=== PATIENT | female | born 1950 | race Caucasian/White ===

== ENCOUNTER 2016-10-13 15:18 | Inpatient (IN) | payer BC, MEDICARE ==
[2016-10-13] MEDS ORDERED: MELOXICAM (MOBIC) 7.5 MG TAB PO PRN (15:30)
[2016-10-13] MEDS ORDERED: ACETAMINOPHEN TAB 650MG DOSE (2X325MG) PO PRN (15:30)
[2016-10-13 16:50] VITALS: BP 166/97
[2016-10-13] MEDS ORDERED: ZETI10TA2 PO (18:14)
[2016-10-13] MEDS ORDERED: LYRI300C PO (18:14)
[2016-10-13] MEDS ORDERED: SYNT150T PO (18:14)
[2016-10-13] MEDS ORDERED: METH2.5TA PO (18:14)
[2016-10-13] MEDS ORDERED: SULF500T2 PO (18:14)
[2016-10-13] MEDS ORDERED: CYAN1000VL IM (18:14)
[2016-10-13] MEDS ORDERED: AMIT75TA PO (18:14)
[2016-10-13] MEDS ORDERED: DULO1CAP3 PO (18:14)
[2016-10-13] MEDS ORDERED: GEMF600T PO (18:14)
[2016-10-13] MEDS ORDERED: MELO15TA4 PO (18:14)
[2016-10-13] MEDS ORDERED: FOLI1TAB2 PO (18:14)
[2016-10-13] MEDS ORDERED: PROP120C PO (18:14)
[2016-10-13] MEDS ORDERED: HYDR200T3 PO (18:14)
[2016-10-13] MEDS ORDERED: CLON0.5T PO (18:14)
[2016-10-13] MEDS ORDERED: CARB400T4 PO (18:14)
--- NOTE | 2016-10-13 18:29 | REP ---
Clinical: Fever and hypoxemia. Technique: A AP and lateral views. Comparison: 05/16/2012 Findings: Mediastinum and cardiac silhouette are stable. Lung graham demonstrate chronic interstitial changes. No focal consolidation, effusion, or pneumothorax identified. Impression: Chronic stable changes. Cannot exclude mild vascular congestion. No focal consolidation or effusion. Signed by Isaiah Baltazar MD 10/13/2016 06:20 P
[2016-10-13] MEDS: NORCO, ANEXSIA 5/325MG TABLET (HYDROcodone/ACETAMINOPHEN) PO PRN (18:48)
[2016-10-13 19:01] LABS: BASO % 0.5 % (0.0-1.0); EOS # 0.1 K/mm3 (0.0-0.50); LARGE UNSTAINED CELL # 0.5 K/mm3 (0.0-0.4); LARGE UNSTAINED CELL % 4.8 % (0.0-4.0); LYMPH # 0.7 K/mm3 (1.5-4.5); LYMPH % 3.1 % (24.0-44.0); MEAN CORPUSCULAR HGB CONC 32.9 g/dl (32.0-36.5); MEAN CORPUSCULAR VOLUME 106.4 fl (80.0-96.0); MONO # 0.9 K/mm3 (0.0-0.8); MONO % 9.8 % (0.0-5.0); NEUTROPHILS # 7.6 K/mm3 (1.8-7.7); NEUTROPHILS % 80.7 % (36.0-66.0); PLATELET COUNT, AUTOMATED 302 k/mm3 (150-450); RED CELL DISTRIBUTION WIDTH 13.9 % (11.5-14.5); WHITE BLOOD COUNT 9.4 K/mm3 (4.0-10.0)
[2016-10-13 20:05] LABS: ALBUMIN/GLOBULIN RATIO 1.14 (1.00-1.93); ALKALINE PHOSPHATASE 96 U/L (45-117); ALT/SGPT 21 U/L (12-78); ANION GAP 6 MEQ/L (8-16); AST/SGOT 35 U/L (15-37); BILIRUBIN,TOTAL 0.3 MG/DL (0.2-1.0); BLOOD UREA NITROGEN 13 MG/DL (7-18); CALCIUM LEVEL 8.7 MG/DL (8.8-10.2); CARBON DIOXIDE LEVEL 34 MEQ/L (21-32); CHLORIDE LEVEL 92 MEQ/L (98-107); CREATININE FOR GFR 0.61 MG/DL (0.55-1.02); GLOMERULAR FILTRATION RATE > 60.0 (>45); GLUCOSE, FASTING 92 MG/DL (80-110); POTASSIUM SERUM 4.5 MEQ/L (3.5-5.1); SODIUM LEVEL 132 MEQ/L (136-145); TOTAL PROTEIN 7.5 GM/DL (6.4-8.2)
[2016-10-13] MEDS: PREGABALIN 100 MG CAP (LYRICA) PO SCH (20:40)
[2016-10-13] MEDS: AMITRIPTYLINE 25 MG TAB PO SCH (20:41)
[2016-10-13] MEDS: HYDROXYCHLOROQUINE 200 MG TAB PO SCH (20:42)
[2016-10-13] MEDS: GEMFIBROZIL 600 MG TAB PO SCH (20:42)
[2016-10-13] MEDS: DULoxetine 30 MG CAP (CYMBALTA) PO SCH (20:42)
[2016-10-13] MEDS: PROPRANOLOL 60 MG LA CAP PO SCH (21:00)
[2016-10-13] MEDS: CEFTAROLINE FOSAMIL 600 MG in D5W MINI-BAG PLUS 50 ML IV SCH (21:18)
[2016-10-13 22:00] VITALS: BP 154/77
[2016-10-13] MEDS: sulfaSALAzine 500 MG TABEC PO SCH (22:33)
[2016-10-13] MEDS: carBAMazepine XR 200 MG TAB PO SCH (22:33)
[2016-10-13] MEDS: DOXYCYCLINE HYCLATE 100 MG in D5W MINI-BAG PLUS 100 ML IV SCH (23:30)
[2016-10-14] MEDS: LEVOTHYROXINE 0.15 MG TAB (150 MCG) PO SCH (05:39)
[2016-10-14 06:00] VITALS: BP 119/59
[2016-10-14 06:55] LABS: BASO % 0.5 % (0.0-1.0); EOS # 0.1 K/mm3 (0.0-0.50); EOS % 1.3 % (0.0-3.0); LARGE UNSTAINED CELL # 0.4 K/mm3 (0.0-0.4); LARGE UNSTAINED CELL % 5.4 % (0.0-4.0); LYMPH # 0.8 K/mm3 (1.5-4.5); MEAN CORPUSCULAR HEMOGLOBIN 34.5 pg (27.0-33.0); MEAN CORPUSCULAR HGB CONC 32.3 g/dl (32.0-36.5); MEAN CORPUSCULAR VOLUME 107.1 fl (80.0-96.0); MONO # 0.8 K/mm3 (0.0-0.8); MONO % 11.1 % (0.0-5.0); NEUTROPHILS # 5.8 K/mm3 (1.8-7.7); NEUTROPHILS % 76.7 % (36.0-66.0); PLATELET COUNT, AUTOMATED 290 k/mm3 (150-450); WHITE BLOOD COUNT 7.6 K/mm3 (4.0-10.0)
[2016-10-14 07:08] LABS: ALBUMIN 3.7 GM/DL (3.2-5.2); ALBUMIN/GLOBULIN RATIO 1.06 (1.00-1.93); ALKALINE PHOSPHATASE 83 U/L (45-117); ALT/SGPT 27 U/L (12-78); ANION GAP 8 MEQ/L (8-16); AST/SGOT 57 U/L (15-37); BILIRUBIN,TOTAL 0.4 MG/DL (0.2-1.0); BLOOD UREA NITROGEN 15 MG/DL (7-18); CALCIUM LEVEL 8.8 MG/DL (8.8-10.2); CARBON DIOXIDE LEVEL 33 MEQ/L (21-32); CHLORIDE LEVEL 91 MEQ/L (98-107); CREATININE FOR GFR 0.73 MG/DL (0.55-1.02); GLOMERULAR FILTRATION RATE > 60.0 (>45); GLUCOSE, FASTING 102 MG/DL (80-110); POTASSIUM SERUM 4.2 MEQ/L (3.5-5.1); SODIUM LEVEL 132 MEQ/L (136-145); TOTAL PROTEIN 7.2 GM/DL (6.4-8.2)
[2016-10-14] MEDS: DOXYCYCLINE HYCLATE 100 MG in D5W MINI-BAG PLUS 100 ML IV SCH (09:00)
[2016-10-14] MEDS: CEFTAROLINE FOSAMIL 600 MG in D5W MINI-BAG PLUS 50 ML IV SCH (09:41)
[2016-10-14] MEDS: PREGABALIN 100 MG CAP (LYRICA) PO SCH ×2 (09:41→20:10)
[2016-10-14] MEDS: DULoxetine 30 MG CAP (CYMBALTA) PO SCH ×2 (09:42→20:14)
[2016-10-14] MEDS: GEMFIBROZIL 600 MG TAB PO SCH ×3 (09:42→21:00)
[2016-10-14] MEDS: HYDROXYCHLOROQUINE 200 MG TAB PO SCH ×2 (09:42→20:15)
[2016-10-14] MEDS: MULTIVITAMINS/MINERALS THERAP 1 TAB PO SCH (09:42)
[2016-10-14] MEDS: carBAMazepine XR 200 MG TAB PO SCH ×3 (09:42→22:00)
[2016-10-14] MEDS: FOLIC ACID 1 MG TAB PO SCH (09:42)
[2016-10-14] MEDS: sulfaSALAzine 500 MG TABEC PO SCH ×2 (09:42→20:14)
[2016-10-14] MEDS: VITAMIN D 1,000 INTERNATIONAL UNITS TABLET PO SCH (09:42)
[2016-10-14] MEDS: ENOXAPARIN 40 MG/0.4 ML SYRINGE (J1650) SC SCH (09:43)
[2016-10-14] MEDS: NORCO, ANEXSIA 5/325MG TABLET (HYDROcodone/ACETAMINOPHEN) PO PRN ×2 (09:43→20:15)
--- NOTE | 2016-10-14 10:37 | IPNPDOC ---
Subjective General Date Seen The patient was seen on 10/14/16. Subjective Chief Complaint/HPI The patient is a 66-year-old female admitted with a reason for visit of Cap / Hypoxemia. Events since last encounter Martha was directly admitted from the office after presenting c 3 days of myalgias, cough, congestion and intermittent fever. Was found to be hypoxic at 87% that improved c 2L NC. She continues to require O2 to maintain sats here. Bcx pending. RVP + for flu. Afebrile since admission. Assessment /Plan Problems Problems: (1) Influenza A Status: Acute (2) Hypoxemia Status: Acute (3) Hyperlipidemia Status: Chronic Problem Text: Cont zetia and lopid (4) Type 2 diabetes mellitus Status: Chronic Response to Treatment: Stable Problem Text: Diet-controlled. CHO-consistent diet ordered. (5) B12 deficiency anemia Status: Chronic Response to Treatment: Stable (6) Hypothyroid Status: Chronic Response to Treatment: Stable Problem Text: continue synthroid (7) Migraine headache Status: Chronic Response to Treatment: Stable Problem Text: continue prophylaxis VS, I&O, [facility] Vital Signs Date Time Temp Pulse Resp B/P Pulse Ox O2 Delivery O2 Flow Rate FiO2 10/14/16 09:43 18 10/14/16 06:00 99.9 83 119/59 95 Nasal Cannula 2.0 10/13/16 16:50 98 I&O- Last 24 Hours up to 6 AM 10/14/16 05:59 Intake Total 360 ml Output Total 175 ml Balance 185 ml Laboratory Data 24H LABS Laboratory Tests 2 10/13/16 18:41: Blood Urea Nitrogen 13, Creatinine 0.61, Sodium Level 132L, Potassium Level 4.5 , Chloride Level 92L, Carbon Dioxide Level 34H, Calcium Level 8.7L, Aspartate Amino Transf (AST/SGOT) 35, Alanine Aminotransferase (ALT/SGPT) 21, Alkaline Phosphatase 96, Total Bilirubin 0.3, Total Protein 7.5, Albumin 4.0, Albumin/ Globulin Ratio 1.14, Anion Gap 6L, White Blood Count 9.4, Red Blood Count 3.58L , Hemoglobin 12.5, Hematocrit 38.1, Mean Corpuscular Volume 106.4H, Mean Corpuscular Hemoglobin 35.0H, Mean Corpuscular Hemoglobin Concent 32.9, Red Cell Distribution Width 13.9, Platelet Count 302, Neutrophils (%) (Auto) 80.7H, Lymphocytes (%) (Auto) 3.1L, Monocytes (%) (Auto) 9.8H, Eosinophils (%) (Auto) 1.0, Basophils (%) (Auto) 0.5, Neutrophils # (Auto) 7.6, Lymphocytes # (Auto) 0.7L, Monocytes # (Auto) 0.9H, Eosinophils # (Auto) 0.1, Basophils # (Auto) 0.0 , Glomerular Filtration Rate > 60.0, Large Unclassified Cells # 0.5H, Large Unclassified Cells % 4.8H 10/14/16 06:11: Urine Amorphous Sediment , Urine Appearance HAZY, Urine Color PAT, Urine pH 5.0, Urine Specific [place] 1.026, Urine Protein 1+H, Urine Glucose (UA) NEGATIVE, Urine Ketones NEGATIVE, Urine Urobilinogen 0.2, Urine Bilirubin NEGATIVE, Urine Leukocyte Esterase NEGATIVE, Urine Bacteria (Auto) NEGATIVE, Urine Blood NEGATIVE, Urine Calcium Carbonate Cryst(Auto) , Urine Calcium Oxalate Cryst (Auto) , Urine Calcium Phosphate Rama (Auto) , Urine Cellular Casts , Urine Cystine Crystals , Urine Granular Casts (Auto) , Urine Hyaline Casts (Auto) 5, Urine Leucine Crystals , Urine Mucus (Auto) SMALL, Urine Nitrite NEGATIVE, Urine Oval Fat Bodies (Auto) , Urine RBC (Auto) 4H, Urine Renal Epithelial Cells , Urine Sperm (Auto) , Urine Squamous Epithelial Cells 1 , Urine Transitional Epithelial Cells 1, Urine Trichomonas (Auto) , Urine Triple Phosphate Cryst (Auto) , Urine Tyrosine Crystals , Urine Uric Acid Crystals (Auto) , Urine WBC (Auto) 10H, Urine Waxy Casts (Auto) , Urine Yeast- Like Cells (Auto) 10/14/16 06:17: Blood Urea Nitrogen 15, Creatinine 0.73, Sodium Level 132L, Potassium Level 4.2 , Chloride Level 91L, Carbon Dioxide Level 33H, Calcium Level 8.8, Aspartate Amino Transf (AST/SGOT) 57H, Alanine Aminotransferase (ALT/SGPT) 27, Alkaline Phosphatase 83, Total Bilirubin 0.4, Total Protein 7.2, Albumin 3.7, Albumin/ Globulin Ratio 1.06, Anion Gap 8, White Blood Count 7.6, Red Blood Count 3.40L, Hemoglobin 11.7L, Hematocrit 36.4, Mean Corpuscular Volume 107.1H, Mean Corpuscular Hemoglobin 34.5H, Mean Corpuscular Hemoglobin Concent 32.3, Red Cell Distribution Width 14.0, Platelet Count 290, Neutrophils (%) (Auto) 76.7H, Lymphocytes (%) (Auto) 5.0L, Monocytes (%) (Auto) 11.1H, Eosinophils (%) (Auto) 1.3, Basophils (%) (Auto) 0.5, Neutrophils # (Auto) 5.8, Lymphocytes # (Auto) 0.8L, Monocytes # (Auto) 0.8, Eosinophils # (Auto) 0.1, Basophils # (Auto) 0.0, Glomerular Filtration Rate > 60.0, Large Unclassified Cells # 0.4, Large Unclassified Cells % 5.4H CBC/BMP Laboratory Tests 10/13/16 18:41 Calcium Level 8.7 L, Aspartate Amino Transf (AST/SGOT) 35, Alanine Aminotransferase (ALT/SGPT) 21, Alkaline Phosphatase 96, Total Bilirubin 0.3, Total Protein 7.5, Albumin 4.0, Red Blood Count 3.58 L, Mean Corpuscular Volume 106.4 H, Mean Corpuscular Hemoglobin 35.0 H, Mean Corpuscular Hemoglobin Concent 32.9, Red Cell Distribution Width 13.9, Neutrophils (%) (Auto) 80.7 H, Lymphocytes (%) (Auto) 3.1 L, Monocytes (%) (Auto) 9.8 H, Eosinophils (%) (Auto ) 1.0, Basophils (%) (Auto) 0.5, Neutrophils # (Auto) 7.6, Lymphocytes # (Auto) 0.7 L, Monocytes # (Auto) 0.9 H, Eosinophils # (Auto) 0.1, Basophils # (Auto) 0.0 10/14/16 06:17 Calcium Level 8.8, Aspartate Amino Transf (AST/SGOT) 57 H, Alanine Aminotransferase (ALT/SGPT) 27, Alkaline Phosphatase 83, Total Bilirubin 0.4, Total Protein 7.2, Albumin 3.7, Red Blood Count 3.40 L, Mean Corpuscular Volume 107.1 H, Mean Corpuscular Hemoglobin 34.5 H, Mean Corpuscular Hemoglobin Concent 32.3, Red Cell Distribution Width 14.0, Neutrophils (%) (Auto) 76.7 H, Lymphocytes (%) (Auto) 5.0 L, Monocytes (%) (Auto) 11.1 H, Eosinophils (%) (Auto ) 1.3, Basophils (%) (Auto) 0.5, Neutrophils # (Auto) 5.8, Lymphocytes # (Auto) 0.8 L, Monocytes # (Auto) 0.8, Eosinophils # (Auto) 0.1, Basophils # (Auto) 0.0 Microbiology Microbiology 10/13/16 Blood Culture, Received Pending 10/13/16 Blood Culture, Received Pending 10/13/16 Blood Culture, Received Pending 10/14/16 Respiratory Virus Panel (PCR) ([facility]) - Final, Complete Influenza A H3 10/14/16 Urine Culture, Received Pending YOSELIN LIM DO Oct 14, 2016 10:37
[2016-10-14] MEDS ORDERED: ALBUTEROL SULFATE 2.5 MG/0.5 ML INH NEB SOLN NEB PRN (11:30)
--- NOTE | 2016-10-14 11:34 | IPNPDOC ---
Subjective General Date Seen The patient was seen on 10/14/16. Subjective Chief Complaint/HPI The patient is a 66-year-old female admitted with a reason for visit of Cap / Hypoxrmia. Events since last encounter + for Influenza A. c/o SOB and cough. No prior hx of asthma. 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 Hx of RA. Methotrexate on HOLD. Constitutional: Reports: Chills, Fever ENT: Denies: Head Aches Skin: Denies: Rash Pulmonary: Reports: Cough, Dyspnea Cardiovascular: Denies: Chest Pain, Palpitations Gastrointestinal: Denies: Nausea, Vomiting Genitourinary: Denies: Dysuria, Frequency Musculoskeletal: Reports: Joint Pain (chronic: hx of RA) Psych: Reports: Mood Normal Objective Physical Examination General Exam: Positive: Alert, No Acute Distress Eye Exam: Positive: Conjunctiva & lids normal, EOMI, PERRLA, Negative: Sclera icteric ENT Exam: Positive: Atraumatic, Mucous membr. moist/pink, Pharynx Normal Neck Exam: Positive: Supple, Negative: JVD, thyromegaly Chest Exam: Positive: Diminished Heart Exam: Positive: Normal S1, Normal S2, Rate Normal, Regular Rhythm Abdomen Exam: Positive: Normal bowel sounds, Soft, Negative: Hepatospenomegaly, Tenderness Extremity Exam: Positive: Normal pulses, Negative: Clubbing, Cyanosis, Edema Skin Exam: Positive: Nl turgor and temperature, Negative: Breakdown, Rash Psych Exam: Positive: Mental status NL, Mood NL, Oriented x 3 Assessment /Plan Problems Problems: (1) Influenza A Status: Acute Problem Text: Tamiflu started. Solumedrol, Nebs added on. Initially on ceftaroline and doxycycline for presumed CAP. CXR clear yesterday, so will switch to ceftriaxone and azithromycin for pneumonia prevention. (2) Hypoxemia Status: Acute Problem Text: 2LNC 98%. will wean as indicated. (3) Hyperlipidemia Status: Chronic Problem Text: Cont zetia and lopid (4) Type 2 diabetes mellitus Status: Chronic Response to Treatment: Stable Problem Text: Diet-controlled. CHO-consistent diet ordered. (5) B12 deficiency anemia Status: Chronic Response to Treatment: Stable (6) Hypothyroid Status: Chronic Response to Treatment: Stable Problem Text: continue synthroid (7) Migraine headache Status: Chronic Response to Treatment: Stable Problem Text: continue prophylaxis Plan/VTE VTE Prophylaxis Ordered?: Yes (Lovenox) Plan Family Medicine Attending Note: I saw and examined Ms. Reyna and I agree with Brooklyn Alcaraz's note. Patient was initially directly admitted from the office for presumed CAP but CXR does not show any infiltrate. She is positive for influenza A, which is the most likely cause of her symptoms. She is not dyspneic upon my exam; poor air movement in lungs. As O2 sats are good on 2LPM of O2, I discussed attempting to wean this with her nurse. Continue Tamiflu, antibiotics, prednisone, and nebs as above. She does not have any underlying asthma/COPD but does have a history of TB as a child. PE is less likely as cause of hypoxia as she is not tachycardic and has no leg pain or tenderness to palpation. Right calf is slightly larger than left, but patient states that this is chronic due to an old injury. (KES) VS, I&O, 24H, Fishbone Vital Signs/I&O Vital Signs Date Time Temp Pulse Resp B/P Pulse Ox O2 Delivery O2 Flow Rate FiO2 10/14/16 10:45 18 10/14/16 06:00 99.9 83 119/59 95 Nasal Cannula 2.0 10/13/16 16:50 98 I&O- Last 24 Hours up to 6 AM 10/14/16 06:00 Intake Total 360 ml Output Total 285 ml Balance 75 ml Laboratory Data 24H LABS Laboratory Tests 2 10/13/16 18:41: Blood Urea Nitrogen 13, Creatinine 0.61, Sodium Level 132L, Potassium Level 4.5 , Chloride Level 92L, Carbon Dioxide Level 34H, Calcium Level 8.7L, Aspartate Amino Transf (AST/SGOT) 35, Alanine Aminotransferase (ALT/SGPT) 21, Alkaline Phosphatase 96, Total Bilirubin 0.3, Total Protein 7.5, Albumin 4.0, Albumin/ Globulin Ratio 1.14, Anion Gap 6L, White Blood Count 9.4, Red Blood Count 3.58L , Hemoglobin 12.5, Hematocrit 38.1, Mean Corpuscular Volume 106.4H, Mean Corpuscular Hemoglobin 35.0H, Mean Corpuscular Hemoglobin Concent 32.9, Red Cell Distribution Width 13.9, Platelet Count 302, Neutrophils (%) (Auto) 80.7H, Lymphocytes (%) (Auto) 3.1L, Monocytes (%) (Auto) 9.8H, Eosinophils (%) (Auto) 1.0, Basophils (%) (Auto) 0.5, Neutrophils # (Auto) 7.6, Lymphocytes # (Auto) 0.7L, Monocytes # (Auto) 0.9H, Eosinophils # (Auto) 0.1, Basophils # (Auto) 0.0 , Glomerular Filtration Rate > 60.0, Large Unclassified Cells # 0.5H, Large Unclassified Cells % 4.8H 10/14/16 06:11: Urine Amorphous Sediment , Urine Appearance HAZY, Urine Color PAT, Urine pH 5.0, Urine Specific [place] 1.026, Urine Protein 1+H, Urine Glucose (UA) NEGATIVE, Urine Ketones NEGATIVE, Urine Urobilinogen 0.2, Urine Bilirubin NEGATIVE, Urine Leukocyte Esterase NEGATIVE, Urine Bacteria (Auto) NEGATIVE, Urine Blood NEGATIVE, Urine Calcium Carbonate Cryst(Auto) , Urine Calcium Oxalate Cryst (Auto) , Urine Calcium Phosphate Rama (Auto) , Urine Cellular Casts , Urine Cystine Crystals , Urine Granular Casts (Auto) , Urine Hyaline Casts (Auto) 5, Urine Leucine Crystals , Urine Mucus (Auto) SMALL, Urine Nitrite NEGATIVE, Urine Oval Fat Bodies (Auto) , Urine RBC (Auto) 4H, Urine Renal Epithelial Cells , Urine Sperm (Auto) , Urine Squamous Epithelial Cells 1 , Urine Transitional Epithelial Cells 1, Urine Trichomonas (Auto) , Urine Triple Phosphate Cryst (Auto) , Urine Tyrosine Crystals , Urine Uric Acid Crystals (Auto) , Urine WBC (Auto) 10H, Urine Waxy Casts (Auto) , Urine Yeast- Like Cells (Auto) 10/14/16 06:17: Blood Urea Nitrogen 15, Creatinine 0.73, Sodium Level 132L, Potassium Level 4.2 , Chloride Level 91L, Carbon Dioxide Level 33H, Calcium Level 8.8, Aspartate Amino Transf (AST/SGOT) 57H, Alanine Aminotransferase (ALT/SGPT) 27, Alkaline Phosphatase 83, Total Bilirubin 0.4, Total Protein 7.2, Albumin 3.7, Albumin/ Globulin Ratio 1.06, Anion Gap 8, White Blood Count 7.6, Red Blood Count 3.40L, Hemoglobin 11.7L, Hematocrit 36.4, Mean Corpuscular Volume 107.1H, Mean Corpuscular Hemoglobin 34.5H, Mean Corpuscular Hemoglobin Concent 32.3, Red Cell Distribution Width 14.0, Platelet Count 290, Neutrophils (%) (Auto) 76.7H, Lymphocytes (%) (Auto) 5.0L, Monocytes (%) (Auto) 11.1H, Eosinophils (%) (Auto) 1.3, Basophils (%) (Auto) 0.5, Neutrophils # (Auto) 5.8, Lymphocytes # (Auto) 0.8L, Monocytes # (Auto) 0.8, Eosinophils # (Auto) 0.1, Basophils # (Auto) 0.0, Glomerular Filtration Rate > 60.0, Large Unclassified Cells # 0.4, Large Unclassified Cells % 5.4H CBC/BMP Laboratory Tests 10/13/16 18:41 Calcium Level 8.7 L, Aspartate Amino Transf (AST/SGOT) 35, Alanine Aminotransferase (ALT/SGPT) 21, Alkaline Phosphatase 96, Total Bilirubin 0.3, Total Protein 7.5, Albumin 4.0, Red Blood Count 3.58 L, Mean Corpuscular Volume 106.4 H, Mean Corpuscular Hemoglobin 35.0 H, Mean Corpuscular Hemoglobin Concent 32.9, Red Cell Distribution Width 13.9, Neutrophils (%) (Auto) 80.7 H, Lymphocytes (%) (Auto) 3.1 L, Monocytes (%) (Auto) 9.8 H, Eosinophils (%) (Auto ) 1.0, Basophils (%) (Auto) 0.5, Neutrophils # (Auto) 7.6, Lymphocytes # (Auto) 0.7 L, Monocytes # (Auto) 0.9 H, Eosinophils # (Auto) 0.1, Basophils # (Auto) 0.0 10/14/16 06:17 Calcium Level 8.8, Aspartate Amino Transf (AST/SGOT) 57 H, Alanine Aminotransferase (ALT/SGPT) 27, Alkaline Phosphatase 83, Total Bilirubin 0.4, Total Protein 7.2, Albumin 3.7, Red Blood Count 3.40 L, Mean Corpuscular Volume 107.1 H, Mean Corpuscular Hemoglobin 34.5 H, Mean Corpuscular Hemoglobin Concent 32.3, Red Cell Distribution Width 14.0, Neutrophils (%) (Auto) 76.7 H, Lymphocytes (%) (Auto) 5.0 L, Monocytes (%) (Auto) 11.1 H, Eosinophils (%) (Auto ) 1.3, Basophils (%) (Auto) 0.5, Neutrophils # (Auto) 5.8, Lymphocytes # (Auto) 0.8 L, Monocytes # (Auto) 0.8, Eosinophils # (Auto) 0.1, Basophils # (Auto) 0.0 Microbiology Microbiology 10/13/16 Blood Culture, Received Pending 10/13/16 Blood Culture, Received Pending 10/13/16 Blood Culture, Received Pending 10/14/16 Respiratory Virus Panel (PCR) ([facility]) - Final, Complete Influenza A H3 10/14/16 Urine Culture, Received Pending Brooklyn Alcaraz Oct 14, 2016 11:34 DAKOTA COLEY MD Oct 14, 2016 16:17
[2016-10-14] MEDS ORDERED: methylPREDNISolone INJ 125 MG/2 ML VIAL (J2930) IV ONE (12:00)
[2016-10-14] MEDS: OSELTAMIVIR PHOSPHATE 75 MG CAP (TAMIFLU) PO SCH ×2 (13:06→20:14)
[2016-10-14] MEDS: EZETIMIBE 10 MG TAB (ZETIA) PO SCH (13:06)
[2016-10-14] MEDS: AZITHROMYCIN INJ 500 MG, VIAL MATE ADAPTER 1 EACH in D5W 250 ML IV SCH (13:07)
[2016-10-14] MEDS: IPRATROPIUM 0.5MG/ALBUTEROL 2.5MG INH SOL UD 3ML (DUONEB)(J7620) NEB SCH ×2 (13:15→20:41)
[2016-10-14 14:00] VITALS: BP 137/68
--- NOTE | 2016-10-14 17:49 | REP ---
UNILATERAL RIGHT LOWER EXTREMITY DUPLEX VEINS: HISTORY: Swelling. There are no filling defects in the deep venous system. The deep venous system is patent. IMPRESSION: There is no deep venous thrombosis. Signed by Lamont Jones MD 10/14/2016 05:51 P
[2016-10-14] MEDS: PROPRANOLOL 60 MG LA CAP PO SCH (18:34)
[2016-10-14] MEDS: AMITRIPTYLINE 25 MG TAB PO SCH (20:10)
[2016-10-14 20:41] VITALS: O2SAT 97
[2016-10-14] MEDS ORDERED: OSELTAMIVIR PHOSPHATE 75 MG CAP (TAMIFLU) PO SCH (21:00)
[2016-10-14] MEDS: cefTRIAXone SOD 1 GM in D5W MINI-BAG PLUS 50 ML IV SCH (21:15)
[2016-10-14 22:00] VITALS: BP 136/86
[2016-10-15] MEDS: IPRATROPIUM 0.5MG/ALBUTEROL 2.5MG INH SOL UD 3ML (DUONEB)(J7620) NEB SCH ×4 (01:20→20:17)
--- NOTE | 2016-10-15 05:00 | REPUSA ---
CLINICAL HISTORY: Altered mental status. TECHNIQUE: Multiple axial brain CT scan sections were obtained from base to vertex without contrast a dministration. COMMENTS: Comparison is made to the prior exam performed on 11/27/2011. The study shows normal configuration of sella turcica. There are no intra or extra-axial collections. There is no mass effect or midline shift. There is no evidence of hematoma formation. No hydrocephal us is present. No abnormal calcifications are noted. No significant abnormalities are seen either in the posterior fossa or supratentorial compartment. Interval appearance of an air-fluid level in the left sphenoid sinus. The remaining sinuses and mastoid air cells are patent. IMPRESSION: No evidence of acute intracranial pathology. Interval appearance of an air-fluid level in the left sphenoid sinus suggestive of acute sinusitis. T his was not present on prior exam. Thank you for your kind referral of this patient.
[2016-10-15] MEDS: LEVOTHYROXINE 0.15 MG TAB (150 MCG) PO SCH (05:53)
[2016-10-15 06:00] VITALS: BP 140/68
[2016-10-15] MEDS ORDERED: methylPREDNISolone INJ 125 MG/2 ML VIAL (J2930) IV ONE (08:00)
[2016-10-15 08:41] LABS: ABG BASE EXCESS 1.2 (-2.0-2.0); ABG HCO3 27.7 MEQ/L (22.0-26.0); ABG PARTIAL PRESSURE CO2 52.5 mmHg (35.0-45.0); ABG PARTIAL PRESSURE O2 104.3 mmHg (75.0-100.0); ABG STANDARD HCO3 25.5 MEQ/L (22.0-26.0); ABG TOTAL CO2 29.3 MEQ/L (23.0-31.0)
[2016-10-15] MEDS ORDERED: predniSONE 20 MG TAB PO SCH (09:00)
--- NOTE | 2016-10-15 09:03 | IPNPDOC ---
Subjective Date Seen The patient was seen on 10/15/16. Subjective Chief Complaint/HPI The patient is a 66-year-old female admitted with a reason for visit of Cap / Hypoxrmia. Events since last encounter Had episode at approximately 0400: coughing excessively aide called for nurse and patient found to be minimally responsive with arms contracted overhead. developed difficulty speaking with lethargy for approximately 1 hour. Patient does not recall incident. Per nursing, slowly came out of episode. CT brain obtained, shows sinusitis.Has + seizure d/o and takes Tegretol XR 400 mg po bid. Also taking Cymbalta for depression/chronic pain. ABG obtained. Shows PCO2 and PO2 elevations with PH of 7.34. This am: patient denies RDZ, blurred vision, dizziness. + for SOB and cough with wheezing. Constitutional: Denies: Chills, Fever, Night Sweats ENT: Denies: Dysphagia, Ear Pain, Head Aches Skin: Denies: Breakdown, Lesions, Rash Pulmonary: Reports: Cough, Dyspnea Cardiovascular: Denies: Chest Pain, Palpitations Gastrointestinal: Denies: Abdominal Pain, Constipation, Diarrhea, Nausea, Vomiting Genitourinary: Denies: Dysuria, Frequency, Incontinence Hematologic: Denies: Bruising Neurological: Reports: Change in speech, Confusion, Other Symptoms (See HPI), Seizures Psych: Reports: Mood Normal Objective Physical Examination General Exam: Positive: Alert, No Acute Distress Eye Exam: Positive: Conjunctiva & lids normal, EOMI, PERRLA, Negative: Sclera icteric ENT Exam: Positive: Atraumatic, Mucous membr. moist/pink, Pharynx Normal Neck Exam: Positive: Supple, Negative: JVD, thyromegaly Chest Exam: Positive: Diminished Heart Exam: Positive: Normal S1, Normal S2, Rate Normal, Regular Rhythm Abdomen Exam: Positive: Normal bowel sounds, Soft, Negative: Hepatospenomegaly, Tenderness Extremity Exam: Positive: Normal pulses, Negative: Clubbing, Cyanosis, Edema Skin Exam: Positive: Nl turgor and temperature, Negative: Breakdown, Rash Psych Exam: Positive: Mental status NL, Mood NL, Oriented x 3 Assessment /Plan Problems (1) Influenza A Status: Acute Problem Text: 10/15/2016: Solumedrol 125 mg IV now then 80mg IV q 8 hrs. Significant wheezing noted. Tamiflu started. Solumedrol, Nebs added on. Initially on ceftaroline and doxycycline for presumed CAP. CXR clear yesterday, so will switch to ceftriaxone and azithromycin for pneumonia prevention. (2) Hypoxemia Status: Acute Problem Text: 10/15/2016: ABG with hypercapnea. Wean oxygen, monitor saturations. 2LNC 98%. will wean as indicated. (3) Seizure disorder Status: Acute Problem Text: favor aphasic episode 10/15/16 2 partial complex seizure 10/15/16 CT head s contrast NAD x acute sphenoid sinusitis 10/15/16 carba level 11.8 on HD 400 BID, also on HD pregablin 300 BID Cymbalta 60 BID held due to lowering seizure threshold. (4) Hyperlipidemia Status: Chronic Problem Text: Cont zetia and lopid (5) Type 2 diabetes mellitus Status: Chronic Response to Treatment: Stable Problem Text: Diet-controlled. CHO-consistent diet ordered. (6) B12 deficiency anemia Status: Chronic Response to Treatment: Stable (7) Hypothyroid Status: Chronic Response to Treatment: Stable Problem Text: continue synthroid (8) Migraine headache Status: Chronic Response to Treatment: Stable Problem Text: continue prophylaxis Plan/VTE VTE Prophylaxis Ordered?: Yes (Lovenox) VS, I&O, 24H, Fishbone Vital Signs/I&O Vital Signs Date Time Temp Pulse Resp B/P Pulse Ox O2 Delivery O2 Flow Rate FiO2 10/15/16 06:00 98.7 67 16 140/68 97 Nasal Cannula 2.0 10/13/16 16:50 98 I&O- Last 24 Hours up to 6 AM 10/15/16 06:00 Intake Total 1200 ml Output Total 825 ml Balance 375 ml Laboratory Data 24H LABS Laboratory Tests 2 10/15/16 04:04: Bedside Glucose (Misc Panel) 108 10/15/16 08:13: 10/15/16 08:30: Arterial Blood pH 7.340L, Arterial Blood Partial Pressure CO2 52.5H, Arterial Blood Partial Pressure O2 104.3H, Arterial Blood Total CO2 29.3, Arterial Blood HCO3 27.7H, Arterial Blood Base Excess 1.2, Arterial Blood Oxygen Saturation 97.6, Blood Gas Bicarbonate Standard 25.5 Microbiology Microbiology 10/13/16 Blood Culture - Preliminary, Resulted No growth after 24 hours . All specim... 10/13/16 Blood Culture - Preliminary, Resulted No growth after 24 hours . All specim... 10/13/16 Blood Culture - Preliminary, Resulted No growth after 24 hours . All specim... 10/14/16 Respiratory Virus Panel (PCR) ([facility]) - Final, Complete Influenza A H3 10/14/16 Urine Culture - Final, Complete Brooklyn Alcaraz Oct 15, 2016 09:03 Pipo Tracy M.D. Oct 15, 2016 16:04
[2016-10-15] MEDS: ENOXAPARIN 40 MG/0.4 ML SYRINGE (J1650) SC SCH (09:18)
[2016-10-15] MEDS: sulfaSALAzine 500 MG TABEC PO SCH ×2 (09:21→21:34)
[2016-10-15] MEDS: OSELTAMIVIR PHOSPHATE 75 MG CAP (TAMIFLU) PO SCH ×2 (09:21→21:34)
[2016-10-15] MEDS: VITAMIN D 1,000 INTERNATIONAL UNITS TABLET PO SCH (09:21)
[2016-10-15] MEDS: GEMFIBROZIL 600 MG TAB PO SCH ×2 (09:22→21:34)
[2016-10-15] MEDS: PREGABALIN 100 MG CAP (LYRICA) PO SCH ×2 (09:22→21:33)
[2016-10-15] MEDS: FOLIC ACID 1 MG TAB PO SCH (09:23)
[2016-10-15] MEDS: HYDROXYCHLOROQUINE 200 MG TAB PO SCH ×2 (09:23→21:34)
[2016-10-15] MEDS: MULTIVITAMINS/MINERALS THERAP 1 TAB PO SCH (09:23)
[2016-10-15] MEDS: carBAMazepine XR 200 MG TAB PO SCH ×2 (10:00→21:33)
[2016-10-15] MEDS: EZETIMIBE 10 MG TAB (ZETIA) PO SCH (12:07)
[2016-10-15 14:00] VITALS: BP 147/76
[2016-10-15] MEDS: AZITHROMYCIN INJ 500 MG, VIAL MATE ADAPTER 1 EACH in D5W 250 ML IV SCH (14:12)
[2016-10-15] MEDS: methylPREDNISolone INJ 125 MG/2 ML VIAL (J2930) IV SCH (16:20)
[2016-10-15] MEDS: PROPRANOLOL 60 MG LA CAP PO SCH (18:07)
[2016-10-15] MEDS: AMITRIPTYLINE 25 MG TAB PO SCH (21:33)
[2016-10-15] MEDS: cefTRIAXone SOD 1 GM in D5W MINI-BAG PLUS 50 ML IV SCH (21:33)
[2016-10-15 22:00] VITALS: BP 176/81
[2016-10-16] MEDS: methylPREDNISolone INJ 125 MG/2 ML VIAL (J2930) IV SCH ×2 (00:17→09:46)
[2016-10-16] MEDS: IPRATROPIUM 0.5MG/ALBUTEROL 2.5MG INH SOL UD 3ML (DUONEB)(J7620) NEB SCH ×4 (02:00→20:22)
[2016-10-16] MEDS: LEVOTHYROXINE 0.15 MG TAB (150 MCG) PO SCH (05:14)
[2016-10-16 06:00] VITALS: BP 136/78
[2016-10-16 07:03] LABS: EOS % 0.2 % (0.0-3.0); LARGE UNSTAINED CELL # 0.3 K/mm3 (0.0-0.4); LARGE UNSTAINED CELL % 6.4 % (0.0-4.0); LYMPH # 0.8 K/mm3 (1.5-4.5); LYMPH % 9.7 % (24.0-44.0); MEAN CORPUSCULAR HEMOGLOBIN 34.8 pg (27.0-33.0); MEAN CORPUSCULAR HGB CONC 33.1 g/dl (32.0-36.5); MONO # 0.6 K/mm3 (0.0-0.8); MONO % 12.2 % (0.0-5.0); NEUTROPHILS # 3.3 K/mm3 (1.8-7.7); NEUTROPHILS % 71.5 % (36.0-66.0); PLATELET COUNT, AUTOMATED 321 k/mm3 (150-450); RED CELL DISTRIBUTION WIDTH 13.8 % (11.5-14.5); WHITE BLOOD COUNT 4.7 K/mm3 (4.0-10.0)
[2016-10-16 07:08] LABS: ALBUMIN 3.4 GM/DL (3.2-5.2); ALBUMIN/GLOBULIN RATIO 0.85 (1.00-1.93); ALKALINE PHOSPHATASE 78 U/L (45-117); ALT/SGPT 42 U/L (12-78); ANION GAP 5 MEQ/L (8-16); AST/SGOT 47 U/L (15-37); BILIRUBIN,TOTAL 0.3 MG/DL (0.2-1.0); BLOOD UREA NITROGEN 13 MG/DL (7-18); CALCIUM LEVEL 8.8 MG/DL (8.8-10.2); CARBON DIOXIDE LEVEL 35 MEQ/L (21-32); CHLORIDE LEVEL 94 MEQ/L (98-107); CREATININE FOR GFR 0.62 MG/DL (0.55-1.02); GLOMERULAR FILTRATION RATE > 60.0 (>45); GLUCOSE, FASTING 117 MG/DL (80-110); POTASSIUM SERUM 4.5 MEQ/L (3.5-5.1); SODIUM LEVEL 134 MEQ/L (136-145); TOTAL PROTEIN 7.4 GM/DL (6.4-8.2)
[2016-10-16 09:15] VITALS: BP 120/63
[2016-10-16] MEDS: carBAMazepine XR 200 MG TAB PO SCH ×2 (10:30→21:32)
[2016-10-16] MEDS: sulfaSALAzine 500 MG TABEC PO SCH ×2 (10:30→21:31)
[2016-10-16] MEDS: OSELTAMIVIR PHOSPHATE 75 MG CAP (TAMIFLU) PO SCH ×2 (10:31→21:31)
[2016-10-16] MEDS: FOLIC ACID 1 MG TAB PO SCH (10:31)
[2016-10-16] MEDS: VITAMIN D 1,000 INTERNATIONAL UNITS TABLET PO SCH (10:31)
[2016-10-16] MEDS: HYDROXYCHLOROQUINE 200 MG TAB PO SCH ×2 (10:31→21:31)
[2016-10-16] MEDS: PREGABALIN 100 MG CAP (LYRICA) PO SCH ×2 (10:32→21:31)
[2016-10-16] MEDS: GEMFIBROZIL 600 MG TAB PO SCH ×2 (10:32→21:31)
[2016-10-16] MEDS: MULTIVITAMINS/MINERALS THERAP 1 TAB PO SCH (10:32)
[2016-10-16] MEDS: ENOXAPARIN 40 MG/0.4 ML SYRINGE (J1650) SC SCH (10:34)
--- NOTE | 2016-10-16 11:00 | IPNPDOC ---
Subjective Date Seen The patient was seen on 10/16/16. Subjective Chief Complaint/HPI The patient is a 66-year-old female admitted with a reason for visit of Cap / Hypoxrmia. Events since last encounter Slowly improving in symptoms. has weaned off of oxygen remains with KIM. Afebrile. OOB ambulating with PT. Constitutional: Denies: Chills, Fever, Night Sweats ENT: Reports: Sinus Congestion, Sore Throat Pulmonary: Reports: Cough, Dyspnea Cardiovascular: Denies: Chest Pain, Lt Headedness, Orthopnea, Palpitations, Paroxysmal Noc. Dyspnea Gastrointestinal: Denies: Abdominal Pain, Constipation, Diarrhea, Nausea, Vomiting Genitourinary: Denies: Dysuria, Frequency, Incontinence, Retention Psych: Reports: Mood Normal, Denies: Depression, Memory Issues Objective Physical Examination General Exam: Positive: Alert, No Acute Distress Eye Exam: Positive: Conjunctiva & lids normal, EOMI, PERRLA, Negative: Sclera icteric ENT Exam: Positive: Atraumatic, Mucous membr. moist/pink, Pharynx Normal Neck Exam: Positive: Supple, Negative: JVD, thyromegaly Chest Exam: Positive: Wheezing (expiratory wheeze to apices. ) Heart Exam: Positive: Normal S1, Normal S2, Rate Normal, Regular Rhythm Abdomen Exam: Positive: Normal bowel sounds, Soft, Negative: Hepatospenomegaly, Tenderness Extremity Exam: Positive: Normal pulses, Negative: Clubbing, Cyanosis, Edema Skin Exam: Positive: Nl turgor and temperature, Negative: Breakdown, Rash Psych Exam: Positive: Mental status NL, Mood NL, Oriented x 3 Assessment /Plan Problems (1) Influenza A Status: Acute Problem Text: 10/16/2016: Statr po prednisone in am. Potential DC within next 48 hrs. 10/15/2016: Solumedrol 125 mg IV now then 80mg IV q 8 hrs. Significant wheezing noted. Tamiflu started. Solumedrol, Nebs added on. Initially on ceftaroline and doxycycline for presumed CAP. CXR clear yesterday, so will switch to ceftriaxone and azithromycin for pneumonia prevention. (2) Hypoxemia Status: Acute Problem Text: 10/15/2016: ABG with hypercapnea. Wean oxygen, monitor saturations. 2LNC 98%. will wean as indicated. (3) Seizure disorder Status: Acute Problem Text: favor aphasic episode 10/15/16 2 partial complex seizure 10/15/16 CT head s contrast NAD x acute sphenoid sinusitis 10/15/16 carba level 11.8 on HD 400 BID, also on HD pregablin 300 BID Cymbalta 60 BID held due to lowering seizure threshold. (4) Hyperlipidemia Status: Chronic Problem Text: Cont zetia and lopid (5) Type 2 diabetes mellitus Status: Chronic Response to Treatment: Stable Problem Text: Diet-controlled. CHO-consistent diet ordered. (6) B12 deficiency anemia Status: Chronic Response to Treatment: Stable (7) Hypothyroid Status: Chronic Response to Treatment: Stable Problem Text: continue synthroid (8) Migraine headache Status: Chronic Response to Treatment: Stable Problem Text: continue prophylaxis Plan/VTE VTE Prophylaxis Ordered?: Yes (Lovenox) VS, I&O, 24H, Fishbone Vital Signs/I&O Vital Signs Date Time Temp Pulse Resp B/P Pulse Ox O2 Delivery O2 Flow Rate FiO2 10/16/16 09:58 Room Air 10/16/16 09:15 97.5 66 16 120/63 95 10/15/16 22:00 2.0 10/13/16 16:50 98 I&O- Last 24 Hours up to 6 AM 10/16/16 06:00 Intake Total 1155 ml Output Total 200 ml Balance 955 ml Laboratory Data 24H LABS Laboratory Tests 2 10/15/16 17:14: Bedside Glucose (Misc Panel) 108 10/16/16 06:13: Blood Urea Nitrogen 13, Creatinine 0.62, Sodium Level 134L, Potassium Level 4.5 , Chloride Level 94L, Carbon Dioxide Level 35H, Calcium Level 8.8, Aspartate Amino Transf (AST/SGOT) 47H, Alanine Aminotransferase (ALT/SGPT) 42, Alkaline Phosphatase 78, Total Bilirubin 0.3, Total Protein 7.4, Albumin 3.4, Albumin/ Globulin Ratio 0.85L, Anion Gap 5L, White Blood Count 4.7, Red Blood Count 3.30L , Hemoglobin 11.5L, Hematocrit 34.6L, Mean Corpuscular Volume 105.0H, Mean Corpuscular Hemoglobin 34.8H, Mean Corpuscular Hemoglobin Concent 33.1, Red Cell Distribution Width 13.8, Platelet Count 321, Neutrophils (%) (Auto) 71.5H, Lymphocytes (%) (Auto) 9.7L, Monocytes (%) (Auto) 12.2H, Eosinophils (%) (Auto) 0.2, Basophils (%) (Auto) 0.0, Neutrophils # (Auto) 3.3, Lymphocytes # (Auto) 0.8L, Monocytes # (Auto) 0.6, Eosinophils # (Auto) 0.0, Basophils # (Auto) 0.0, Glomerular Filtration Rate > 60.0, Large Unclassified Cells # 0.3, Large Unclassified Cells % 6.4H CBC/BMP Laboratory Tests 10/16/16 06:13 Calcium Level 8.8, Aspartate Amino Transf (AST/SGOT) 47 H, Alanine Aminotransferase (ALT/SGPT) 42, Alkaline Phosphatase 78, Total Bilirubin 0.3, Total Protein 7.4, Albumin 3.4, Red Blood Count 3.30 L, Mean Corpuscular Volume 105.0 H, Mean Corpuscular Hemoglobin 34.8 H, Mean Corpuscular Hemoglobin Concent 33.1, Red Cell Distribution Width 13.8, Neutrophils (%) (Auto) 71.5 H, Lymphocytes (%) (Auto) 9.7 L, Monocytes (%) (Auto) 12.2 H, Eosinophils (%) (Auto ) 0.2, Basophils (%) (Auto) 0.0, Neutrophils # (Auto) 3.3, Lymphocytes # (Auto) 0.8 L, Monocytes # (Auto) 0.6, Eosinophils # (Auto) 0.0, Basophils # (Auto) 0.0 Microbiology Microbiology 10/13/16 Blood Culture - Preliminary, Resulted No Growth after 48 hours. All Specime... 10/13/16 Blood Culture - Preliminary, Resulted No Growth after 48 hours. All Specime... 10/13/16 Blood Culture - Preliminary, Resulted No Growth after 48 hours. All Specime... 10/14/16 Respiratory Virus Panel (PCR) ([facility]) - Final, Complete Influenza A H3 10/14/16 Urine Culture - Final, Complete Brooklyn Alcaraz Oct 16, 2016 11:00
[2016-10-16 12:00] VITALS: BP 149/69
[2016-10-16] MEDS: EZETIMIBE 10 MG TAB (ZETIA) PO SCH (13:04)
[2016-10-16 14:00] VITALS: BP 166/72
[2016-10-16] MEDS ORDERED: methylPREDNISolone INJ 125 MG/2 ML VIAL (J2930) IV SCH (16:00)
[2016-10-16] MEDS: PROPRANOLOL 60 MG LA CAP PO SCH (17:11)
[2016-10-16] MEDS: AMITRIPTYLINE 25 MG TAB PO SCH (21:31)
[2016-10-16 22:00] VITALS: BP 163/84
[2016-10-17] MEDS: IPRATROPIUM 0.5MG/ALBUTEROL 2.5MG INH SOL UD 3ML (DUONEB)(J7620) NEB SCH ×4 (03:20→20:04)
[2016-10-17 06:00] VITALS: BP 161/78
[2016-10-17] MEDS: LEVOTHYROXINE 0.15 MG TAB (150 MCG) PO SCH (06:00)
[2016-10-17 07:06] LABS: BASO % 0.3 % (0.0-1.0); EOS % 0.4 % (0.0-3.0); LARGE UNSTAINED CELL # 0.3 K/mm3 (0.0-0.4); LARGE UNSTAINED CELL % 4.1 % (0.0-4.0); LYMPH # 1.3 K/mm3 (1.5-4.5); LYMPH % 13.6 % (24.0-44.0); MEAN CORPUSCULAR HEMOGLOBIN 35.3 pg (27.0-33.0); MEAN CORPUSCULAR HGB CONC 33.9 g/dl (32.0-36.5); MEAN CORPUSCULAR VOLUME 104.1 fl (80.0-96.0); MONO # 0.9 K/mm3 (0.0-0.8); MONO % 11.9 % (0.0-5.0); NEUTROPHILS # 5.1 K/mm3 (1.8-7.7); NEUTROPHILS % 69.7 % (36.0-66.0); PLATELET COUNT, AUTOMATED 332 k/mm3 (150-450); RED CELL DISTRIBUTION WIDTH 13.5 % (11.5-14.5); WHITE BLOOD COUNT 7.2 K/mm3 (4.0-10.0)
[2016-10-17 07:33] LABS: ALBUMIN 3.3 GM/DL (3.2-5.2); ALBUMIN/GLOBULIN RATIO 0.87 (1.00-1.93); ALKALINE PHOSPHATASE 73 U/L (45-117); ALT/SGPT 39 U/L (12-78); ANION GAP 9 MEQ/L (8-16); AST/SGOT 36 U/L (15-37); BILIRUBIN,TOTAL 0.3 MG/DL (0.2-1.0); BLOOD UREA NITROGEN 14 MG/DL (7-18); CALCIUM LEVEL 8.9 MG/DL (8.8-10.2); CARBON DIOXIDE LEVEL 32 MEQ/L (21-32); CHLORIDE LEVEL 97 MEQ/L (98-107); CREATININE FOR GFR 0.55 MG/DL (0.55-1.02); GLOMERULAR FILTRATION RATE > 60.0 (>45); GLUCOSE, FASTING 90 MG/DL (80-110); SODIUM LEVEL 138 MEQ/L (136-145); TOTAL PROTEIN 7.1 GM/DL (6.4-8.2)
[2016-10-17] MEDS: ENOXAPARIN 40 MG/0.4 ML SYRINGE (J1650) SC SCH (09:48)
[2016-10-17] MEDS: VITAMIN D 1,000 INTERNATIONAL UNITS TABLET PO SCH (09:49)
[2016-10-17] MEDS: sulfaSALAzine 500 MG TABEC PO SCH ×2 (09:49→21:01)
[2016-10-17] MEDS: GEMFIBROZIL 600 MG TAB PO SCH ×2 (09:49→21:01)
[2016-10-17] MEDS: MULTIVITAMINS/MINERALS THERAP 1 TAB PO SCH (09:49)
[2016-10-17] MEDS: OSELTAMIVIR PHOSPHATE 75 MG CAP (TAMIFLU) PO SCH ×2 (09:50→21:01)
[2016-10-17] MEDS: carBAMazepine XR 200 MG TAB PO SCH ×2 (09:50→21:02)
[2016-10-17] MEDS: PREGABALIN 100 MG CAP (LYRICA) PO SCH ×2 (09:50→21:02)
[2016-10-17] MEDS: predniSONE 20 MG TAB PO SCH (09:50)
[2016-10-17] MEDS: HYDROXYCHLOROQUINE 200 MG TAB PO SCH ×2 (09:51→21:01)
[2016-10-17] MEDS: FOLIC ACID 1 MG TAB PO SCH (09:51)
--- NOTE | 2016-10-17 10:20 | IPNPDOC ---
Subjective Date Seen The patient was seen on 10/17/16. Subjective Chief Complaint/HPI The patient is a 66-year-old female admitted with a reason for visit of Cap / Hypoxrmia. Events since last encounter Oxygen weaned during day, replaced at night due to saturation of 86%. 95% on RA this am. Constitutional: Denies: Chills, Fever, Night Sweats Skin: Denies: Breakdown, Lesions, Rash Pulmonary: Reports: Dyspnea, Denies: Cough Cardiovascular: Denies: Chest Pain, Lt Headedness, Orthopnea, Palpitations, Paroxysmal Noc. Dyspnea Genitourinary: Denies: Dysuria, Frequency, Incontinence, Retention Psych: Reports: Mood Normal, Denies: Depression, Memory Issues Objective Physical Examination General Exam: Positive: Alert, No Acute Distress Eye Exam: Positive: Conjunctiva & lids normal, EOMI, PERRLA, Negative: Sclera icteric ENT Exam: Positive: Atraumatic, Mucous membr. moist/pink, Pharynx Normal Neck Exam: Positive: Supple, Negative: JVD, thyromegaly Chest Exam: Positive: Wheezing (occasional wheeze) Heart Exam: Positive: Normal S1, Normal S2, Rate Normal, Regular Rhythm Abdomen Exam: Positive: Normal bowel sounds, Soft, Negative: Hepatospenomegaly, Tenderness Extremity Exam: Positive: Normal pulses, Negative: Clubbing, Cyanosis, Edema Skin Exam: Positive: Nl turgor and temperature, Negative: Breakdown, Rash Psych Exam: Positive: Mental status NL, Mood NL, Oriented x 3 Assessment /Plan Problems (1) Influenza A Status: Acute Problem Text: 10/17/2016: improving, yet showing some desaturation. Will monitor and perform noc ox. 10/16/2016: Statr po prednisone in am. Potential DC within next 48 hrs. 10/15/2016: Solumedrol 125 mg IV now then 80mg IV q 8 hrs. Significant wheezing noted. Tamiflu started. Solumedrol, Nebs added on. Initially on ceftaroline and doxycycline for presumed CAP. CXR clear yesterday, so will switch to ceftriaxone and azithromycin for pneumonia prevention. (2) Hypoxemia Status: Acute Problem Text: 10/17/2016: improving, yet showing some desaturation. Will monitor and perform noc ox. 10/15/2016: ABG with hypercapnea. Wean oxygen, monitor saturations. 2LNC 98%. will wean as indicated. (3) Seizure disorder Status: Acute Problem Text: favor aphasic episode 10/15/16 2 partial complex seizure 10/15/16 CT head s contrast NAD x acute sphenoid sinusitis 10/15/16 carba level 11.8 on HD 400 BID, also on HD pregablin 300 BID Cymbalta 60 BID held due to lowering seizure threshold. (4) Hyperlipidemia Status: Chronic Problem Text: Cont zetia and lopid (5) Type 2 diabetes mellitus Status: Chronic Response to Treatment: Stable Problem Text: Diet-controlled. CHO-consistent diet ordered. (6) B12 deficiency anemia Status: Chronic Response to Treatment: Stable (7) Hypothyroid Status: Chronic Response to Treatment: Stable Problem Text: continue synthroid (8) Migraine headache Status: Chronic Response to Treatment: Stable Problem Text: continue prophylaxis Plan/VTE VTE Prophylaxis Ordered?: Yes (Lovenox) Plan Attending Physician Note: I saw and examined this patient. The case was reviewed with the RPA and/or the PGY-3. VS, I&O, 24H, [facility] Vital Signs/I&O Vital Signs Date Time Temp Pulse Resp B/P Pulse Ox O2 Delivery O2 Flow Rate FiO2 10/17/16 06:00 96.9 68 20 161/78 92 Room Air 10/15/16 22:00 2.0 10/13/16 16:50 98 I&O- Last 24 Hours up to 6 AM 10/17/16 06:00 Intake Total 1200 ml Output Total 1550 ml Balance -350 ml Laboratory Data 24H LABS Laboratory Tests 2 10/17/16 06:14: White Blood Count 7.2, Red Blood Count 3.55L, Hemoglobin 12.5, Hematocrit 37.0, Mean Corpuscular Volume 104.1H, Mean Corpuscular Hemoglobin 35.3H, Mean Corpuscular Hemoglobin Concent 33.9, Red Cell Distribution Width 13.5, Platelet Count 332, Neutrophils (%) (Auto) 69.7H, Lymphocytes (%) (Auto) 13.6L, Monocytes (%) (Auto) 11.9H, Eosinophils (%) (Auto) 0.4, Basophils (%) (Auto) 0.3 , Neutrophils # (Auto) 5.1, Lymphocytes # (Auto) 1.3L, Monocytes # (Auto) 0.9H, Eosinophils # (Auto) 0.0, Basophils # (Auto) 0.0, Large Unclassified Cells # 0.3 , Large Unclassified Cells % 4.1H 10/17/16 07:01: Blood Urea Nitrogen 14, Creatinine 0.55, Sodium Level 138, Potassium Level 4.0, Chloride Level 97L, Carbon Dioxide Level 32, Calcium Level 8.9, Aspartate Amino Transf (AST/SGOT) 36, Alanine Aminotransferase (ALT/SGPT) 39, Alkaline Phosphatase 73, Total Bilirubin 0.3, Total Protein 7.1, Albumin 3.3, Albumin/ Globulin Ratio 0.87L, Anion Gap 9, Glomerular Filtration Rate > 60.0 CBC/BMP Laboratory Tests 10/17/16 06:14 Red Blood Count 3.55 L, Mean Corpuscular Volume 104.1 H, Mean Corpuscular Hemoglobin 35.3 H, Mean Corpuscular Hemoglobin Concent 33.9, Red Cell Distribution Width 13.5, Neutrophils (%) (Auto) 69.7 H, Lymphocytes (%) (Auto) 13.6 L, Monocytes (%) (Auto) 11.9 H, Eosinophils (%) (Auto) 0.4, Basophils (%) ( Auto) 0.3, Neutrophils # (Auto) 5.1, Lymphocytes # (Auto) 1.3 L, Monocytes # ( Auto) 0.9 H, Eosinophils # (Auto) 0.0, Basophils # (Auto) 0.0 10/17/16 07:01 Calcium Level 8.9, Aspartate Amino Transf (AST/SGOT) 36, Alanine Aminotransferase (ALT/SGPT) 39, Alkaline Phosphatase 73, Total Bilirubin 0.3, Total Protein 7.1, Albumin 3.3 Microbiology Microbiology 10/13/16 Blood Culture - Preliminary, Resulted No Growth after 72 hours. All specime... 10/13/16 Blood Culture - Preliminary, Resulted No Growth after 72 hours. All specime... 10/13/16 Blood Culture - Preliminary, Resulted No Growth after 72 hours. All specime... 10/14/16 Respiratory Virus Panel (PCR) ([facility]) - Final, Complete Influenza A H3 10/14/16 Urine Culture - Final, Complete Brooklyn AlcarazP Oct 17, 2016 10:20 Jerry Pritchard M.D. Oct 18, 2016 18:00
[2016-10-17] MEDS: EZETIMIBE 10 MG TAB (ZETIA) PO SCH (12:24)
[2016-10-17 14:00] VITALS: BP 151/66
[2016-10-17 18:21] VITALS: BP 161/78
[2016-10-17] MEDS: PROPRANOLOL 60 MG LA CAP PO SCH (18:21)
[2016-10-17] MEDS: AMITRIPTYLINE 25 MG TAB PO SCH (21:02)
[2016-10-17 22:00] VITALS: BP 169/85
[2016-10-18] MEDS: IPRATROPIUM 0.5MG/ALBUTEROL 2.5MG INH SOL UD 3ML (DUONEB)(J7620) NEB SCH ×2 (01:20→07:54)
[2016-10-18] MEDS: LEVOTHYROXINE 0.15 MG TAB (150 MCG) PO SCH (05:41)
[2016-10-18 06:00] VITALS: BP 160/84
[2016-10-18 06:56] LABS: BASO % 0.5 % (0.0-1.0); EOS # 0.1 K/mm3 (0.0-0.50); EOS % 0.6 % (0.0-3.0); LARGE UNSTAINED CELL # 0.5 K/mm3 (0.0-0.4); LARGE UNSTAINED CELL % 5.4 % (0.0-4.0); LYMPH # 2.1 K/mm3 (1.5-4.5); LYMPH % 15.6 % (24.0-44.0); MEAN CORPUSCULAR HEMOGLOBIN 34.4 pg (27.0-33.0); MEAN CORPUSCULAR HGB CONC 33.1 g/dl (32.0-36.5); MEAN CORPUSCULAR VOLUME 103.9 fl (80.0-96.0); MONO # 0.9 K/mm3 (0.0-0.8); MONO % 8.9 % (0.0-5.0); NEUTROPHILS # 6.8 K/mm3 (1.8-7.7); PLATELET COUNT, AUTOMATED 350 k/mm3 (150-450); RED CELL DISTRIBUTION WIDTH 13.5 % (11.5-14.5); WHITE BLOOD COUNT 9.8 K/mm3 (4.0-10.0)
[2016-10-18 07:07] LABS: ALBUMIN 3.2 GM/DL (3.2-5.2); ALKALINE PHOSPHATASE 79 U/L (45-117); ALT/SGPT 40 U/L (12-78); ANION GAP 9 MEQ/L (8-16); AST/SGOT 31 U/L (15-37); BILIRUBIN,TOTAL 0.4 MG/DL (0.2-1.0); BLOOD UREA NITROGEN 12 MG/DL (7-18); CALCIUM LEVEL 8.8 MG/DL (8.8-10.2); CARBON DIOXIDE LEVEL 30 MEQ/L (21-32); CHLORIDE LEVEL 99 MEQ/L (98-107); CREATININE FOR GFR 0.68 MG/DL (0.55-1.02); GLOMERULAR FILTRATION RATE > 60.0 (>45); GLUCOSE, FASTING 87 MG/DL (80-110); POTASSIUM SERUM 4.1 MEQ/L (3.5-5.1); SODIUM LEVEL 138 MEQ/L (136-145); TOTAL PROTEIN 7.2 GM/DL (6.4-8.2)
[2016-10-18] MEDS ORDERED: ALB2.5NEB NEB (08:03)
[2016-10-18] MEDS ORDERED: OSEL75CA2 PO (08:03)
[2016-10-18] MEDS ORDERED: IPRASOL4 NEB (08:03)
[2016-10-18] MEDS ORDERED: DELT1TAB PO (08:17)
[2016-10-18] MEDS: FOLIC ACID 1 MG TAB PO SCH (09:00)
[2016-10-18] MEDS: ENOXAPARIN 40 MG/0.4 ML SYRINGE (J1650) SC SCH (09:00)
[2016-10-18] MEDS: GEMFIBROZIL 600 MG TAB PO SCH (09:05)
[2016-10-18] MEDS: MULTIVITAMINS/MINERALS THERAP 1 TAB PO SCH (09:06)
[2016-10-18] MEDS: carBAMazepine XR 200 MG TAB PO SCH (09:06)
[2016-10-18] MEDS: VITAMIN D 1,000 INTERNATIONAL UNITS TABLET PO SCH (09:06)
[2016-10-18] MEDS: PREGABALIN 100 MG CAP (LYRICA) PO SCH (09:06)
[2016-10-18] MEDS: OSELTAMIVIR PHOSPHATE 75 MG CAP (TAMIFLU) PO SCH (09:06)
[2016-10-18] MEDS: sulfaSALAzine 500 MG TABEC PO SCH (09:07)
[2016-10-18] MEDS: HYDROXYCHLOROQUINE 200 MG TAB PO SCH (09:07)
[2016-10-18] MEDS: predniSONE 20 MG TAB PO SCH (09:07)
--- NOTE | 2016-10-19 16:40 | DSES ---
DATE OF ADMISSION: 10/13/2016 DATE OF DISCHARGE: 10/18/2016 HISTORY OF THE PRESENT ILLNESS: A 66-year-old female who was admitted as a direct admission from her primary care provider's office for hypoxemia, questionable community-acquired pneumonia. Workup proved that the patient was positive for influenza A H3 on respiratory panel. The patient was subsequently treated with azithromycin and Rocephin for 48 hours to prevent pneumonia, was placed on Solu-Medrol for approximately 48 hours, then transitioned over to prednisone. The patient has been oxygen dependent during the hospitalization, especially in the overnight at sleep hour. The patient was able to be weaned off of her oxygen during the day. Nocturnal oximetry did prove that the patient has hypoxemia at night down into the 70% range, which does improve into the 90s with 2 liters nasal cannula. The patient has been using albuterol nebulizer along with DuoNebs every 6 hours for a significant amount of wheezing, which has slowly improved as well. The patient did have an incident with prolonged coughing and wheeze and was found to have some unresponsiveness with slowed improvement in cognition for approximately 1 hour. After further investigation, it was deemed that the patient probably experienced a seizure secondary to prolonged cough or bronchospasm, and she had some postictal symptoms for approximately 1 hour. The patient has not had any incidents since then and has been stable throughout the rest of her hospitalization. The patient's Cymbalta was stopped as this does lower seizure threshold and needs to be reviewed with primary care provider (PCP) upon followup. On physical exam today, vital signs are stable. She is afebrile. HEENT: Neck is supple without lymphadenopathy or jugular venous distention (JVD). CARDIOVASCULAR: Heart rate and rhythm are regular. PULMONARY: Lungs are clear to auscultation throughout. ABDOMEN: Soft and nontender with positive bowel sounds times all four quadrants. EXTREMITIES: Bilateral lower extremities are without any edema. NEUROLOGIC: The patient is alert and oriented times three. PSYCHIATRIC: Affect is flat. Conversions appropriate and congruent. Most recent labs show a hemoglobin and hematocrit of 11 and 35, white blood cell count of 9000. Chemistry shows sodium 138, potassium 4.1, BUN 12, creatinine 0.68. IMAGING: Chest x-ray was completed on admission and was negative for pneumonia. Vascular ultrasound was completed of the right lower extremity due to swelling and tenderness. Deep vein thrombosis (DVT) was ruled out. Head CT was completed after the patient's presumed seizure-like episode and results showed left sphenoid sinusitis. PROCEDURES: None. CONSULTATIONS: None. ASSESSMENT: 1. Influenza H3. 2. Hypoxemia with shortness of breath and wheezing. 3. History of rheumatoid arthritis. 4. History of hyperlipidemia. 5. Diabetes. 6. B12 deficiency. 7. Hypothyroidism. 8. History of migraines. 9. History of seizure disorder. PLAN: The patient will be discharged home. She will have nebulizer available for shortness of breath or wheezing. Medications for nebulizer include albuterol 2.5 mg per 1/2 mL neb every 2 hours as needed for shortness of breath and DuoNebs every 6 hours. Other medications for her current acute situation include prednisone 60 mg by mouth every morning for the next 4 days, and she will finish her Tamiflu course of 75 mg by mouth twice a day for the next 2 days. Activity is as tolerated. Diet is as tolerated. Continued medications include: Amitriptyline 75 mg by mouth nightly, carbamazepine ER 400 mg by mouth twice a day, clonazepam 0.5 mg by mouth daily, vitamin B12 intramuscularly (IM) monthly, Zetia 10 mg by mouth daily, folic acid 1 mg tablets, two by mouth daily, gemfibrozil 600 mg by mouth twice a day, hydroxychloroquine sulfate 200 mg by mouth twice a day, levothyroxine 150 mcg by mouth daily, meloxicam 15 mg by mouth daily, Lyrica 300 mg by mouth twice a day, propranolol 120 mg by mouth nightly, sulfasalazine 500 mg by mouth twice a day. Stopped medications include: Methotrexate is on hold until patient's acute illness has resolved, as well as duloxetine secondary to her presumed seizure-like episode. The patient is discharged in stable and satisfactory condition. We will arrange for her nebulizer as well as oxygen therapy in the home prior to discharge today, and she will followup with primary care provider within the next 7 days.
--- NOTE | 2016-10-20 06:59 | NOCOX ---
DATE OF PROCEDURE: 10/17/2016 Recording nocturnal oximetry was performed on room air. A total of 6 hours and 2 minutes of data was reviewed. Mean oxygen saturation was 89% with a minimum recorded value of 62%. Per the report, there is a total of 1 hour and 6 minutes of time spent with saturations less than 88% (18.2% of the night). There was actually a period of more profound desaturation around 4 a.m. However, in reviewing the accompanying report that may have been when she was out of bed going to the bathroom, other possibilities would include sleep position versus sleep stage. IMPRESSION: 1. Nocturnal hypoxemia. 2. Fluctuation in the SpO2 waveform may be suggestive of sleep disorder breathing. Clinical correlation will be necessary. SHANIA
== END 2016-10-18 10:30 | disposition home or self-care (01) | DRG 194 ==
LOC: M MS5PR 15:58
PROVIDERS: ADMIT Family Medicine; ATTEND Family Medicine
DX: J10.1 Influenza due to other identified influenza virus with other respiratory manifestations (principal); D84.9 Immunodeficiency, unspecified; E11.9 Type 2 diabetes mellitus without complications; E03.9 Hypothyroidism, unspecified; G40.909 Epilepsy, unspecified, not intractable, without status epilepticus; G43.909 Migraine, unspecified, not intractable, without status migrainosus; M06.9 Rheumatoid arthritis, unspecified; E53.8 Deficiency of other specified B group vitamins; E78.5 Hyperlipidemia, unspecified

== ENCOUNTER → 2017-01-06 | Outpatient (REF) | payer MEDICARE ==
[~2017-01-06] MED LIST: ALB2.5NEB NEB; AMIT75TA PO; CARB400T4 PO; CLON0.5T PO; CYAN1000VL IM; DELT1TAB PO; DULO1CAP3 PO; FOLI1TAB2 PO; GEMF600T PO; HYDR200T3 PO; IPRASOL4 NEB; LYRI300C PO; MELO15TA4 PO; METH2.5TA PO; OSEL75CA2 PO; PROP120C PO; SULF500T2 PO; SYNT150T PO; ZETI10TA2 PO
[2017-01-06 19:43] LABS: MEAN CORPUSCULAR HEMOGLOBIN 34.9 pg (27.0-33.0); MEAN CORPUSCULAR HGB CONC 33.4 g/dl (32.0-36.5); MEAN CORPUSCULAR VOLUME 104.3 fl (80.0-96.0); RED CELL DISTRIBUTION WIDTH 13.7 % (11.5-14.5); WHITE BLOOD COUNT 5.4 K/mm3 (4.0-10.0)
[2017-01-06 19:51] LABS: VITAMIN B12 LEVEL 478 PG/ML (247-911)
[2017-01-06 20:16] LABS: ALBUMIN 3.7 GM/DL (3.2-5.2); ALBUMIN/GLOBULIN RATIO 1.03 (1.00-1.93); ALKALINE PHOSPHATASE 93 U/L (45-117); ALT/SGPT 16 U/L (12-78); ANION GAP 8 MEQ/L (8-16); AST/SGOT 12 U/L (15-37); BILIRUBIN,TOTAL 0.3 MG/DL (0.2-1.0); BLOOD UREA NITROGEN 10 MG/DL (7-18); CALCIUM LEVEL 9.1 MG/DL (8.8-10.2); CARBON DIOXIDE LEVEL 33 MEQ/L (21-32); CHLORIDE LEVEL 94 MEQ/L (98-107); CHOLESTEROL LEVEL 247 MG/DL (<200); CREATININE FOR GFR 0.52 MG/DL (0.55-1.02); FREE T4 0.75 NG/DL (0.76-1.46); GLOMERULAR FILTRATION RATE > 60.0 (>45); GLUCOSE, FASTING 98 MG/DL (80-110); POTASSIUM SERUM 4.4 MEQ/L (3.5-5.1); SODIUM LEVEL 135 MEQ/L (136-145); TOTAL PROTEIN 7.3 GM/DL (6.4-8.2); TRIGLYCERIDES LEVEL 247 MG/DL (<150)
== END ==
LOC: M SFHCADAM 14:17
PROVIDERS: ATTEND Family Medicine
DX: D64.89 Other specified anemias (principal); E11.40 Type 2 diabetes mellitus with diabetic neuropathy, unspecified; E03.9 Hypothyroidism, unspecified; E78.2 Mixed hyperlipidemia; E55.9 Vitamin D deficiency, unspecified; D51.9 Vitamin B12 deficiency anemia, unspecified

== ENCOUNTER → 2017-01-09 | Outpatient (REF) | payer MEDICARE | LOC: M LAB REF 10:19 | PROVIDERS: ATTEND Family Medicine | DX: D64.89 Other specified anemias (principal); E11.40 Type 2 diabetes mellitus with diabetic neuropathy, unspecified; E03.9 Hypothyroidism, unspecified; E78.2 Mixed hyperlipidemia; E55.9 Vitamin D deficiency, unspecified; D51.9 Vitamin B12 deficiency anemia, unspecified ==

== ENCOUNTER → 2017-03-31 | Outpatient (REF) | payer MEDICARE ==
[~2017-03-31] MED LIST changes: +EZET10TA; -FOLI1TAB2 PO; +FOLI1TAB4 PO; +KEFL500C17 PO; +MAPA325T3 PO; -ZETI10TA2 PO; +ZETI10TA30 PO
== END ==
LOC: M SFHCLERA 11:40
PROVIDERS: ATTEND Dermatology
DX: L57.0 Actinic keratosis (principal)

== ENCOUNTER → 2017-04-21 | Outpatient (REF) | payer MEDICARE ==
[2017-04-21 20:05] LABS: VITAMIN B12 LEVEL 738 PG/ML (247-911)
[2017-04-21 20:07] LABS: ALBUMIN 3.6 GM/DL (3.2-5.2); ALBUMIN/GLOBULIN RATIO 0.97 (1.00-1.93); ALKALINE PHOSPHATASE 115 U/L (45-117); ALT/SGPT 24 U/L (12-78); ANION GAP 8 MEQ/L (8-16); AST/SGOT 20 U/L (15-37); BILIRUBIN,TOTAL 0.2 MG/DL (0.2-1.0); BLOOD UREA NITROGEN 10 MG/DL (7-18); CALCIUM LEVEL 9.1 MG/DL (8.8-10.2); CARBON DIOXIDE LEVEL 31 MEQ/L (21-32); CHLORIDE LEVEL 94 MEQ/L (98-107); CREATININE FOR GFR 0.53 MG/DL (0.55-1.02); FERRITIN 126 NG/ML (8-252); FREE T4 0.78 NG/DL (0.76-1.46); GLOMERULAR FILTRATION RATE > 60.0 (>45); GLUCOSE, FASTING 75 MG/DL (80-110); PERCENT SATURATION 17.6 % (13.2-45.0); POTASSIUM SERUM 4.8 MEQ/L (3.5-5.1); SODIUM LEVEL 133 MEQ/L (136-145); TOTAL IRON BINDING CAPACITY 340 UG/DL (250-450); TOTAL PROTEIN 7.3 GM/DL (6.4-8.2)
[2017-04-21 20:08] LABS: FOLATE > 24.0 NG/ML (>5.4)
[2017-04-21 20:20] LABS: MEAN CORPUSCULAR HEMOGLOBIN 34.7 pg (27.0-33.0); MEAN CORPUSCULAR HGB CONC 32.6 g/dl (32.0-36.5); MEAN CORPUSCULAR VOLUME 106.6 fl (80.0-96.0); RED CELL DISTRIBUTION WIDTH 13.6 % (11.5-14.5); WHITE BLOOD COUNT 7.9 K/mm3 (4.0-10.0)
== END ==
LOC: M SFHCADAM 16:03
PROVIDERS: ATTEND Family Medicine
DX: D64.9 Anemia, unspecified (principal); M06.9 Rheumatoid arthritis, unspecified; E03.9 Hypothyroidism, unspecified; E11.40 Type 2 diabetes mellitus with diabetic neuropathy, unspecified
CPT/HCPCS: 80053; 82607; 82728; 82746; 83036; 83550; 84439; 84443; 85027; 85046; 85652; G0463

== ENCOUNTER 2017-05-29 05:21 | Inpatient (IN) | payer MEDICARE ==
[~2017-05-29] VITALS: Ht 167.6 cm; Wt 113.1 kg
[~2017-05-29 05:21] MED LIST changes: -EZET10TA; -KEFL500C17 PO; -MAPA325T3 PO
[2017-05-29] MEDS: LEVOTHYROXINE 150MCG TABLET (0.15MG) PO SCH (06:00)
[2017-05-29 06:05] LABS: BASO % 0.1 % (0.0-1.0); EOS # 0.1 10^3/uL (0.0-0.50); EOS % 0.4 % (0.0-3.0); IMMATURE GRANULOCYTE % 0.6 % (0-0); LYMPH % 1.1 % (24.0-44.0); MEAN CORPUSCULAR HEMOGLOBIN 35.1 pg (27.0-33.0); MEAN CORPUSCULAR HGB CONC 33.2 g/dl (32.0-36.5); MEAN CORPUSCULAR VOLUME 105.5 fl (80.0-96.0); MONO # 0.4 10^3/uL (0.0-0.8); MONO % 2.4 % (0.0-5.0); NEUTROPHILS % 95.4 % (36.0-66.0); PLATELET COUNT, AUTOMATED 275 10^3/uL (150-450); RED CELL DISTRIBUTION WIDTH 12.7 % (11.5-14.5); WHITE BLOOD COUNT 15.7 10^3/uL (4.0-10.0)
[2017-05-29 06:47] LABS: ALBUMIN 3.6 GM/DL (3.2-5.2); ALBUMIN/GLOBULIN RATIO 0.95 (1.00-1.93); ALKALINE PHOSPHATASE 103 U/L (45-117); ALT/SGPT 18 U/L (12-78); ANION GAP 7 MEQ/L (8-16); AST/SGOT 26 U/L (15-37); BILIRUBIN,DIRECT 0.6 MG/DL (0.0-0.2); BILIRUBIN,TOTAL 1.1 MG/DL (0.2-1.0); BLOOD UREA NITROGEN 14 MG/DL (7-18); CALCIUM LEVEL 9.4 MG/DL (8.8-10.2); CARBON DIOXIDE LEVEL 30 MEQ/L (21-32); CHLORIDE LEVEL 94 MEQ/L (98-107); CREATININE FOR GFR 0.72 MG/DL (0.55-1.02); GLOMERULAR FILTRATION RATE > 60.0 (>45); GLUCOSE, FASTING 109 MG/DL (80-110); POTASSIUM SERUM 4.2 MEQ/L (3.5-5.1); SODIUM LEVEL 131 MEQ/L (136-145); TOTAL PROTEIN 7.4 GM/DL (6.4-8.2)
--- NOTE | 2017-05-29 07:00 | REPUSA ---
CLINICAL HISTORY: Headache. TECHNIQUE: Multiple axial CT images were obtained through the brain without IV contrast material. COMMENTS: There is normal configuration of sella turcica. There are no intra or extra-axial collections. There is no mass effect or midline shift. There is no evidence of hematoma formation. No hydrocephalus is p resent. The ventricles are symmetrical. No abnormal calcifications are present. There is diffuse age-appropriate cerebellar and cerebral atrophy with proportionally dilated ventricl es and cortical sulci. There are bilateral periventricular and subcortical white matter hypolucencies compatible with mild c hronic microvascular disease. Otherwise, no significant focal abnormalities are seen either in the posterior fossa or supratentoria l compartment. IMPRESSION: 1. Age-appropriate cerebellar and cerebral atrophy. 2. Mild chronic microvascular disease. 3. No evidence of acute intracranial pathology. Thank you for your kind referral of this patient.
[2017-05-29 07:17] LABS: ADD MORPHOLOGY? YES; LYMPH # 0.2 10^3/uL (1.5-4.5)
[2017-05-29 07:19] LABS: CARBAMAZEPINE (TEGRETOL) LEVEL 10.8 UG/ML (4.0-10.0)
[2017-05-29] MEDS ORDERED: ACETAMINOPHEN TAB 650MG DOSE (2X325MG) PO ONE (07:30)
--- NOTE | 2017-05-29 08:10 | REP ---
Chest one-view HISTORY: Fever Comparison: 10/13/2016 An increase in interstitial markings is present in the lungs consistent with chronic interstitial change. The heart is normal in size. The pulmonary vasculature is normal in appearance. Impression: Chronic interstitial change. Signed by Lamont Jones MD 05/29/2017 08:01 A
[2017-05-29] MEDS ORDERED: DULO1CAP3 PO (08:17)
[2017-05-29] MEDS ORDERED: METH2.5TA PO (08:17)
[2017-05-29] MEDS ORDERED: NS 1,000 ML IV ONE (08:30)
[2017-05-29] MEDS ORDERED: cefTRIAXone SOD 1 GM in D5W 50 ML IV ONE (08:30)
--- NOTE | 2017-05-29 08:35 | ECGEPIP ---
Stationary ECG Study [facility] - ED Test Date: 2017-05-29 Pat Name: RUSTAM HICKS Department: Room: - Gender: F Director Of Accounting: : 1950 Requested By: SAMMI Cronin Order Number: [id number] Reading MD: Berry Vela Measurements Intervals [place] Rate: 104 P: 76 RI: 186 QRS: 45 QRSD: 94 T: 71 QT: 300 QTc: 396 Interpretive Statements SINUS TACHYCARDIA NO PRIORS Electronically Signed On 05-29-2017 8:35:33 EDT by Berry Vela
[2017-05-29] MEDS ORDERED: IBUPROFEN 800 MG TAB PO ONE (08:45)
[2017-05-29] MEDS: carBAMazepine XR 200 MG TAB PO SCH ×2 (09:00→20:43)
[2017-05-29] MEDS ORDERED: EZET10TA (10:42)
[2017-05-29] MEDS ORDERED: GLUCOSE 4 GM CHEW TABLET PO PRN (13:30)
[2017-05-29] MEDS ORDERED: DEXTROSE 50% 50 ML SYRINGE IV PRN (13:30)
[2017-05-29] MEDS ORDERED: GLUCAGON FOR INJ 1 MG VIAL (J1610) SC PRN (13:30)
[2017-05-29] MEDS: ACETAMINOPHEN TAB 650MG DOSE (2X325MG) PO PRN (15:06)
[2017-05-29 17:30] VITALS: BP 106/55
[2017-05-29] MEDS ORDERED: HumaLOG INSULIN (NovoLOG) PER UNIT SC SCH ×2 (17:30→21:00)
[2017-05-29] MEDS: ENOXAPARIN 40 MG/0.4 ML SYRINGE (J1650) SC SCH (18:34)
[2017-05-29 20:00] VITALS: BP 157/79
[2017-05-29] MEDS: sulfaSALAzine 500 MG TABEC PO SCH (20:41)
[2017-05-29] MEDS: MELOXICAM (MOBIC) 7.5 MG TAB PO SCH (20:42)
[2017-05-29] MEDS: AMITRIPTYLINE 25 MG TAB PO SCH (20:42)
[2017-05-29] MEDS: DOCUSATE SODIUM 100 MG CAP PO SCH (20:42)
[2017-05-29] MEDS: PROPRANOLOL 60 MG LA CAP PO SCH (20:43)
[2017-05-29] MEDS: GEMFIBROZIL 600 MG TAB PO SCH (20:43)
[2017-05-29] MEDS: DULoxetine 30 MG CAP (CYMBALTA) PO SCH (20:44)
[2017-05-29] MEDS: PREGABALIN 100 MG CAP (LYRICA) PO SCH (20:44)
[2017-05-29] MEDS: HYDROXYCHLOROQUINE 200 MG TAB PO SCH (20:44)
[2017-05-29] MEDS: FOLIC ACID 1 MG TAB PO SCH (20:44)
[2017-05-29] MEDS: NYSTATIN 100,000 UNITS/GM TOPICAL PWD 15 GM TOP SCH (20:45)
[2017-05-30] VITALS (7 sets, daily range): BP systolic 124–194; BP diastolic 66–103
[2017-05-30] MEDS: LEVOTHYROXINE 150MCG TABLET (0.15MG) PO SCH (06:05)
[2017-05-30 07:24] LABS: MEAN CORPUSCULAR HEMOGLOBIN 34.9 pg (27.0-33.0); MEAN CORPUSCULAR HGB CONC 31.9 g/dl (32.0-36.5); PLATELET COUNT, AUTOMATED 246 10^3/uL (150-450); RED CELL DISTRIBUTION WIDTH 12.6 % (11.5-14.5); WHITE BLOOD COUNT 18.7 10^3/uL (4.0-10.0)
[2017-05-30 07:26] LABS: ADD MANUAL DIFFER YES; ALBUMIN 2.9 GM/DL (3.2-5.2); ALBUMIN/GLOBULIN RATIO 0.63 (1.00-1.93); ALKALINE PHOSPHATASE 92 U/L (45-117); ALT/SGPT 19 U/L (12-78); ANION GAP 9 MEQ/L (8-16); AST/SGOT 24 U/L (15-37); BILIRUBIN,TOTAL 0.5 MG/DL (0.2-1.0); BLOOD UREA NITROGEN 15 MG/DL (7-18); CALCIUM LEVEL 8.9 MG/DL (8.8-10.2); CARBON DIOXIDE LEVEL 29 MEQ/L (21-32); CHLORIDE LEVEL 100 MEQ/L (98-107); CREATININE FOR GFR 0.74 MG/DL (0.55-1.02); DIFF SLIDE NUMBER 83; GLOMERULAR FILTRATION RATE > 60.0 (>45); GLUCOSE, FASTING 98 MG/DL (80-110); MEAN CORPUSCULAR VOLUME 109.2 fl (80.0-96.0); POTASSIUM SERUM 4.4 MEQ/L (3.5-5.1); SODIUM LEVEL 138 MEQ/L (136-145); TOTAL PROTEIN 7.5 GM/DL (6.4-8.2)
[2017-05-30 07:58] LABS: BANDS 1 % (< 11); EOSINOPHILS 1 % (0-5)
[2017-05-30] MEDS: sulfaSALAzine 500 MG TABEC PO SCH ×2 (08:42→21:29)
[2017-05-30] MEDS: MELOXICAM (MOBIC) 7.5 MG TAB PO SCH (08:43)
[2017-05-30] MEDS: carBAMazepine XR 200 MG TAB PO SCH ×2 (08:44→21:29)
[2017-05-30] MEDS: EZETIMIBE 10 MG TAB (ZETIA) PO SCH (08:45)
[2017-05-30] MEDS: GEMFIBROZIL 600 MG TAB PO SCH ×2 (08:45→21:29)
[2017-05-30] MEDS: HYDROXYCHLOROQUINE 200 MG TAB PO SCH ×2 (08:46→21:29)
[2017-05-30] MEDS: FOLIC ACID 1 MG TAB PO SCH ×2 (09:56→21:29)
[2017-05-30] MEDS: NYSTATIN 100,000 UNITS/GM TOPICAL PWD 15 GM TOP SCH ×2 (09:56→21:33)
[2017-05-30] MEDS: ENOXAPARIN 40 MG/0.4 ML SYRINGE (J1650) SC SCH (09:56)
[2017-05-30] MEDS: DULoxetine 30 MG CAP (CYMBALTA) PO SCH ×2 (09:56→21:29)
[2017-05-30] MEDS: PREGABALIN 100 MG CAP (LYRICA) PO SCH ×2 (09:56→21:29)
[2017-05-30] MEDS: DOCUSATE SODIUM 100 MG CAP PO SCH ×2 (09:57→21:29)
[2017-05-30] MEDS: cefTRIAXone SOD 1 GM in D5W 50 ML IV SCH (12:19)
[2017-05-30] MEDS ORDERED: SLF 3 ML SYR IV PRN (12:30)
[2017-05-30] MEDS ORDERED: INFLUENZA VIRUS VACCINE HIGH DOSE 0.5 ML SYRINGE (90662) IM SCH (13:00)
[2017-05-30] MEDS: SLF 3 ML SYR IV SCH ×2 (14:00→21:31)
--- NOTE | 2017-05-30 15:10 | IPNPDOC ---
Subjective Date Seen The patient was seen on 05/30/17. Subjective Chief Complaint/HPI The patient is a 67-year-old female admitted with a reason for visit of Delirium Uti. Events since last encounter According to nursing Mrs. Reyna was slow to wake up this morning but after she woke her sensorium has been fairly clear. She recognizes that her breathing is still not working quite right, but seems to have insight into that now. She has no other acute complaints. Constitutional: Denies: Chills, Fever Pulmonary: Denies: Dyspnea, Cough Cardiovascular: Denies: Chest Pain, Palpitations Genitourinary: Denies: Hematuria Neurological: Reports: Confusion (improving from yesterday), Denies: Weakness, Numbness Objective Physical Examination General Exam: Positive: Alert, Cooperative, No Acute Distress Eye Exam: Positive: Conjunctiva & lids normal, Negative: Sclera icteric ENT Exam: Positive: Mucous membr. moist/pink Neck Exam: Negative: Lymphadenopathy Chest Exam: Positive: Clear to auscultation, Diminished (secondary to extrinsic restriction from her chest wall) Heart Exam: Positive: Rate Normal, Normal S1, Normal S2, Negative: Murmurs Abdomen Exam: Positive: Normal bowel sounds, Soft, Negative: Tenderness Psych Exam: Positive: Oriented x 3 Assessment /Plan Problems (1) Delirium Status: Acute Response to Treatment: Improving Discussed With: Patient, Family with Pt Consent Problem Text: Her delirium is slowly clearing though it is not completely gone this afternoon. I suspect it will continue to improve with continued antibiotics. (2) UTI (urinary tract infection) Status: Acute Problem Text: Her urine culture still pending. Her white count actually went up a little today, but overall I think we're on the right track because her delirium is improving. We'll continue ceftriaxone until culture results may allow us to narrow the antibiotic coverage spectrum. (3) Gram negative sepsis Status: Acute Problem Text: She grew gram-negative rods in both sets of blood cultures. She is already on ceftriaxone which I suspect will cover what she has. Will continue to monitor carefully. (4) Hypothyroid Status: Chronic Response to Treatment: Stable Problem Text: Continue her home regimen. I don't intend to check a TSH or change her dose while she is here as we may get results from sick euthyroid syndrome. (5) B12 deficiency anemia Status: Chronic Problem Text: Her hemoglobin actually dropped a little bit, but I suspect it is dilutional. It is still 10.6 and not the transfusion range. We'll continue to monitor. Plan/VTE VTE Prophylaxis Ordered?: Yes (Lovenox, SCDs and TEDS) VS, I&O, 24H, Fishbone Vital Signs/I&O Vital Signs Date Time Temp Pulse Resp B/P (MAP) Pulse Ox O2 Delivery O2 Flow Rate FiO2 05/30/17 12:00 99.0 87 18 93 Nasal Cannula 3.0 05/30/17 09:45 177/85 (115) I&O- Last 24 Hours up to 6 AM 05/31/17 06:00 Intake Total 480 ml Output Total 1350 ml Balance -870 ml Laboratory Data 24H LABS Laboratory Tests 2 05/29/17 17:35: Bedside Glucose (Misc Panel) 121H 05/30/17 06:31: White Blood Count 18.7H, Red Blood Count 3.04L, Hemoglobin 10.6L, Hematocrit 33.2L, Mean Corpuscular Volume 109.2H, Mean Corpuscular Hemoglobin 34.9H, Mean Corpuscular Hemoglobin Concent 31.9L, Red Cell Distribution Width 12.6, Platelet Count 246, Monocytes # (Auto) , Neutrophils 87H, Band Neutrophils 1, Lymphocytes (Manual) 1L, Monocytes (Manual) 9H, Eosinophils (Manual) 1, Metamyelocytes 1H, Platelet Estimate NORMAL, Basophilic Stippling 1+, Macrocytosis 2+, Anion Gap 9, Glomerular Filtration Rate > 60.0, Blood Urea Nitrogen 15, Creatinine 0.74, Sodium Level 138#, Potassium Level 4.4, Chloride Level 100, Carbon Dioxide Level 29, Calcium Level 8.9, Aspartate Amino Transf ( AST/SGOT) 24, Alanine Aminotransferase (ALT/SGPT) 19, Alkaline Phosphatase 92, Total Bilirubin 0.5#, Total Protein 7.5, Albumin 2.9L, Albumin/Globulin Ratio 0.63L CBC/BMP Laboratory Tests 05/30/17 06:31 Red Blood Count 3.04 L, Mean Corpuscular Volume 109.2 H, Mean Corpuscular Hemoglobin 34.9 H, Mean Corpuscular Hemoglobin Concent 31.9 L, Red Cell Distribution Width 12.6, Monocytes # (Auto) , Calcium Level 8.9, Aspartate Amino Transf (AST/SGOT) 24, Alanine Aminotransferase (ALT/SGPT) 19, Alkaline Phosphatase 92, Total Bilirubin 0.5 #, Total Protein 7.5, Albumin 2.9 L Microbiology Microbiology 05/29/17 Blood Culture - Preliminary, Resulted 05/29/17 Blood Culture - Preliminary, Resulted 05/29/17 Influenza Virus Type A Antigen - Final, Complete 05/29/17 Influenza Virus Type B Antigen - Final, Complete 05/29/17 Urine Culture, Received Pending Wilder Yancey MD May 30, 2017 15:10
[2017-05-30] MEDS: SUMAtriptan SUCCINATE 25 MG TAB PO PRN (18:16)
[2017-05-30] MEDS: AMITRIPTYLINE 25 MG TAB PO SCH (21:29)
[2017-05-30] MEDS: PROPRANOLOL 60 MG LA CAP PO SCH (21:30)
[2017-05-30] MEDS: ACETAMINOPHEN TAB 650MG DOSE (2X325MG) PO PRN (21:30)
[2017-05-31] MEDS: LEVOTHYROXINE 150MCG TABLET (0.15MG) PO SCH (05:58)
[2017-05-31] MEDS: SLF 3 ML SYR IV SCH ×3 (05:59→20:47)
[2017-05-31 06:00] VITALS: BP 150/73
[2017-05-31 06:39] LABS: MEAN CORPUSCULAR HEMOGLOBIN 35.1 pg (27.0-33.0); MEAN CORPUSCULAR HGB CONC 31.5 g/dl (32.0-36.5); PLATELET COUNT, AUTOMATED 263 10^3/uL (150-450); RED CELL DISTRIBUTION WIDTH 12.8 % (11.5-14.5); WHITE BLOOD COUNT 16.2 10^3/uL (4.0-10.0)
[2017-05-31 06:43] LABS: ADD MANUAL DIFFER YES; ADD MORPHOLOGY? YES; DIFF SLIDE NUMBER 78; MEAN CORPUSCULAR VOLUME 111.6 fl (80.0-96.0)
[2017-05-31 07:10] LABS: ALBUMIN 2.9 GM/DL (3.2-5.2); ANION GAP 3 MEQ/L (8-16); BLOOD UREA NITROGEN 19 MG/DL (7-18); CALCIUM LEVEL 9.5 MG/DL (8.8-10.2); CARBON DIOXIDE LEVEL 36 MEQ/L (21-32); CHLORIDE LEVEL 101 MEQ/L (98-107); CREATININE FOR GFR 0.79 MG/DL (0.55-1.02); GLOMERULAR FILTRATION RATE > 60.0 (>45); GLUCOSE, FASTING 114 MG/DL (80-110); PHOSPHORUS LEVEL 3.3 MG/DL (2.5-4.9); SODIUM LEVEL 140 MEQ/L (136-145)
[2017-05-31 07:15] LABS: POTASSIUM SERUM 5.2 MEQ/L (3.5-5.1)
[2017-05-31 08:00] VITALS: BP 139/102
[2017-05-31 08:20] LABS: BANDS 4 % (< 11)
[2017-05-31] MEDS: GEMFIBROZIL 600 MG TAB PO SCH ×2 (08:36→20:09)
[2017-05-31] MEDS: SUMAtriptan SUCCINATE 25 MG TAB PO PRN (08:36)
[2017-05-31] MEDS: HYDROXYCHLOROQUINE 200 MG TAB PO SCH ×2 (08:36→20:09)
[2017-05-31] MEDS: sulfaSALAzine 500 MG TABEC PO SCH ×2 (08:37→20:11)
[2017-05-31] MEDS: DULoxetine 30 MG CAP (CYMBALTA) PO SCH ×2 (08:37→20:10)
[2017-05-31] MEDS: FOLIC ACID 1 MG TAB PO SCH ×2 (08:37→20:09)
[2017-05-31] MEDS: DOCUSATE SODIUM 100 MG CAP PO SCH ×2 (08:37→20:09)
[2017-05-31] MEDS: PREGABALIN 100 MG CAP (LYRICA) PO SCH ×2 (08:37→20:10)
[2017-05-31] MEDS: carBAMazepine XR 200 MG TAB PO SCH ×2 (08:37→20:10)
[2017-05-31] MEDS: MELOXICAM (MOBIC) 7.5 MG TAB PO SCH (08:37)
[2017-05-31] MEDS: ENOXAPARIN 40 MG/0.4 ML SYRINGE (J1650) SC SCH (08:38)
[2017-05-31] MEDS: NYSTATIN 100,000 UNITS/GM TOPICAL PWD 15 GM TOP SCH ×2 (08:38→21:00)
[2017-05-31] MEDS: EZETIMIBE 10 MG TAB (ZETIA) PO SCH (08:38)
--- NOTE | 2017-05-31 10:21 | IPNPDOC ---
Subjective Date Seen The patient was seen on 05/31/17. Subjective Chief Complaint/HPI The patient is a 67-year-old female admitted with a reason for visit of Delirium Uti. Events since last encounter Pt states she is feeling better today. She feels her confusion has been improving/decreasing. She feels her breathing is better. She denies CP, Abd pain. Constitutional: Denies: Chills, Fever Pulmonary: Reports: Dyspnea Cardiovascular: Denies: Chest Pain Gastrointestinal: Denies: Abdominal Pain Objective Physical Examination General Exam: Positive: Alert, Cooperative, No Acute Distress Eye Exam: Positive: Conjunctiva & lids normal, Negative: Sclera icteric ENT Exam: Positive: Mucous membr. moist/pink Neck Exam: Negative: Lymphadenopathy Chest Exam: Positive: Clear to auscultation, Diminished (secondary to extrinsic restriction from her chest wall) Heart Exam: Positive: Rate Normal, Normal S1, Normal S2, Negative: Murmurs Abdomen Exam: Positive: Normal bowel sounds, Soft, Negative: Tenderness Psych Exam: Positive: Oriented x 3 Assessment /Plan Problems (1) Delirium Status: Acute Response to Treatment: Improving Discussed With: Patient, Family with Pt Consent Problem Text: 05/31 - Delirium has been decreasing/improving. 05/30 - Her delirium is slowly clearing though it is not completely gone this afternoon. I suspect it will continue to improve with continued antibiotics. (2) UTI (urinary tract infection) Status: Acute Problem Text: 05/31 - WBC down to 16.2 today (18.7 yesterday). Urine cx and blood cxs grew EColi. On IV Ceftriaxone. 05/30 - Her urine culture still pending. Her white count actually went up a little today, but overall I think we're on the right track because her delirium is improving. We'll continue ceftriaxone until culture results may allow us to narrow the antibiotic coverage spectrum. (3) Gram negative sepsis Status: Acute Problem Text: 05/31 - WBC down to 16.2 today (18.7 yesterday). Urine cx and blood cxs grew EColi. On IV Ceftriaxone. 05/30 - She grew gram-negative rods in both sets of blood cultures. She is already on ceftriaxone which I suspect will cover what she has. Will continue to monitor carefully. (4) Hypothyroid Status: Chronic Response to Treatment: Stable Problem Text: Continue her home regimen. I don't intend to check a TSH or change her dose while she is here as we may get results from sick euthyroid syndrome. (5) B12 deficiency anemia Status: Chronic Problem Text: 05/31 - Hgb down some from admission but has been stable at 10.6 today and yesterday. Monitor. 05/30 - Her hemoglobin actually dropped a little bit, but I suspect it is dilutional. It is still 10.6 and not the transfusion range. We'll continue to monitor. Plan/VTE VTE Prophylaxis Ordered?: Yes (Lovenox, SCDs and TEDS) VS, I&O, 24H, Fishbone Vital Signs/I&O Vital Signs Date Time Temp Pulse Resp B/P (MAP) Pulse Ox O2 Delivery O2 Flow Rate FiO2 05/31/17 08:00 Nasal Cannula 2.5 05/31/17 06:00 97.8 80 18 150/73 (98) 95 I&O- Last 24 Hours up to 6 AM 06/01/17 06:00 Intake Total 120 ml Output Total 300 ml Balance -180 ml Laboratory Data 24H LABS Laboratory Tests 2 05/31/17 06:20: White Blood Count 16.2H, Red Blood Count 3.02L, Hemoglobin 10.6L, Hematocrit 33.7L, Mean Corpuscular Volume 111.6H, Mean Corpuscular Hemoglobin 35.1H, Mean Corpuscular Hemoglobin Concent 31.5L, Red Cell Distribution Width 12.8, Platelet Count 263, Monocytes # (Auto) , Neutrophils 81H, Band Neutrophils 4, Lymphocytes (Manual) 6L, Monocytes (Manual) 9H, Platelet Estimate NORMAL, Basophilic Stippling 1+, Macrocytosis 2+, Blood Urea Nitrogen 19H, Creatinine 0.79, Sodium Level 140, Potassium Level 5.2H, Chloride Level 101, Carbon Dioxide Level 36H, Anion Gap 3L, Glomerular Filtration Rate > 60.0, Calcium Level 9.5, Phosphorus Level 3.3, Albumin 2.9L CBC/BMP Laboratory Tests 05/31/17 06:20 Red Blood Count 3.02 L, Mean Corpuscular Volume 111.6 H, Mean Corpuscular Hemoglobin 35.1 H, Mean Corpuscular Hemoglobin Concent 31.5 L, Red Cell Distribution Width 12.8, Monocytes # (Auto) , Anion Gap 3 L Microbiology Microbiology 05/29/17 Blood Culture - Final, Complete Escherichia Coli 05/29/17 Blood Culture - Final, Complete Escherichia Coli 05/29/17 Influenza Virus Type A Antigen - Final, Complete 05/29/17 Influenza Virus Type B Antigen - Final, Complete 05/29/17 Urine Culture - Final, Complete Escherichia Coli Jameel Petersen May 31, 2017 10:21
[2017-05-31] MEDS: cefTRIAXone SOD 1 GM in D5W 50 ML IV SCH (11:43)
[2017-05-31 14:00] VITALS: BP 138/68
[2017-05-31] MEDS: ACETAMINOPHEN TAB 650MG DOSE (2X325MG) PO PRN ×2 (14:57→20:11)
[2017-05-31] MEDS: AMITRIPTYLINE 25 MG TAB PO SCH (20:10)
[2017-05-31] MEDS: PROPRANOLOL 60 MG LA CAP PO SCH (20:11)
[2017-05-31 22:00] VITALS: BP 178/88
[2017-06-01] MEDS: LEVOTHYROXINE 150MCG TABLET (0.15MG) PO SCH (05:31)
[2017-06-01] MEDS: SLF 3 ML SYR IV SCH ×3 (05:32→20:09)
[2017-06-01 06:00] VITALS: BP 149/75
[2017-06-01 07:09] LABS: BASO % 0.2 % (0.0-1.0); EOS # 0.1 10^3/uL (0.0-0.50); EOS % 1.4 % (0.0-3.0); IMMATURE GRANULOCYTE % 0.4 % (0-0); LYMPH # 0.6 10^3/uL (1.5-4.5); LYMPH % 6.2 % (24.0-44.0); MEAN CORPUSCULAR HEMOGLOBIN 34.5 pg (27.0-33.0); MEAN CORPUSCULAR HGB CONC 31.1 g/dl (32.0-36.5); MONO % 19.3 % (0.0-5.0); NEUTROPHILS # 7.2 10^3/uL (1.8-7.7); NEUTROPHILS % 72.5 % (36.0-66.0); PLATELET COUNT, AUTOMATED 267 10^3/uL (150-450); RED CELL DISTRIBUTION WIDTH 12.6 % (11.5-14.5); WHITE BLOOD COUNT 9.9 10^3/uL (4.0-10.0)
[2017-06-01 07:47] LABS: ALBUMIN 2.9 GM/DL (3.2-5.2); ALBUMIN/GLOBULIN RATIO 0.69 (1.00-1.93); ALKALINE PHOSPHATASE 114 U/L (45-117); ALT/SGPT 32 U/L (12-78); ANION GAP 4 MEQ/L (8-16); AST/SGOT 31 U/L (15-37); BILIRUBIN,TOTAL 0.4 MG/DL (0.2-1.0); BLOOD UREA NITROGEN 18 MG/DL (7-18); CALCIUM LEVEL 9.2 MG/DL (8.8-10.2); CARBON DIOXIDE LEVEL 36 MEQ/L (21-32); CHLORIDE LEVEL 101 MEQ/L (98-107); CREATININE FOR GFR 0.68 MG/DL (0.55-1.02); GLOMERULAR FILTRATION RATE > 60.0 (>45); GLUCOSE, FASTING 113 MG/DL (80-110); SODIUM LEVEL 141 MEQ/L (136-145); TOTAL PROTEIN 7.1 GM/DL (6.4-8.2)
[2017-06-01 07:48] LABS: ADD MANUAL DIFFER NO; ADD MORPHOLOGY? YES; DIFF SLIDE NUMBER 62; MONO # 1.9 10^3/uL (0.0-0.8)
[2017-06-01] MEDS: carBAMazepine XR 200 MG TAB PO SCH ×2 (09:53→20:05)
[2017-06-01] MEDS: MELOXICAM (MOBIC) 7.5 MG TAB PO SCH (09:53)
[2017-06-01] MEDS: FOLIC ACID 1 MG TAB PO SCH ×2 (09:53→20:05)
[2017-06-01] MEDS: sulfaSALAzine 500 MG TABEC PO SCH ×2 (09:53→20:04)
[2017-06-01] MEDS: DULoxetine 30 MG CAP (CYMBALTA) PO SCH ×2 (09:53→20:05)
[2017-06-01] MEDS: GEMFIBROZIL 600 MG TAB PO SCH ×2 (09:53→20:05)
[2017-06-01] MEDS: EZETIMIBE 10 MG TAB (ZETIA) PO SCH (09:53)
[2017-06-01] MEDS: DOCUSATE SODIUM 100 MG CAP PO SCH ×2 (09:54→20:05)
[2017-06-01] MEDS: NYSTATIN 100,000 UNITS/GM TOPICAL PWD 15 GM TOP SCH ×2 (09:54→20:09)
[2017-06-01] MEDS: ENOXAPARIN 40 MG/0.4 ML SYRINGE (J1650) SC SCH (09:54)
[2017-06-01] MEDS: HYDROXYCHLOROQUINE 200 MG TAB PO SCH ×2 (09:54→20:05)
[2017-06-01] MEDS: PREGABALIN 100 MG CAP (LYRICA) PO SCH ×2 (09:54→20:05)
[2017-06-01] MEDS: cefTRIAXone SOD 1 GM in D5W 50 ML IV SCH (12:57)
--- NOTE | 2017-06-01 13:17 | IPN ---
DATE: 06/01/2017 Martha was seen in [address] [place] [address]. She looks better. Her mental status has improved. She has encephalopathy secondary to gram negative sepsis with E. coli bacteremia and E. coli isolated from her urine. She is improving with antibiotics. PHYSICAL EXAMINATION: 149/75, pulse 71, respiratory rate 14, 97% oxygen saturation. GENERAL APPEARANCE: She is alert and she is conversant today. She is oriented times three. She knows where she is, the month, year and who the president is. Mental status is decidedly better than yesterday. NECK: Supple. LUNGS: Clear. HEART: Regular rate and rhythm without murmur. ABDOMEN: Soft, nontender. No peripheral edema. LABS: White count is down to 9.9, hemoglobin 9.7, platelets 267, sodium 141, potassium 5, BUN 18, creatinine 0.6, glucose 113. IMPRESSION: 1. Gram negative sepsis secondary to the E. coli bacteremia from a urinary source. Plan is to continue IV Rocephin. She is responding well to this. 2. Immunosuppression. She is immunosuppressed from her methotrexate. She is responding to the 1 gram per day dose of ceftriaxone so I am not increasing that. 3. Encephalopathy secondary to gram negative sepsis. Improving with treatment of the sepsis. 4. Hypothyroidism. Stable on current dose of levothyroxine. 5. Anemia secondary to IV fluids/dilution as well as sepsis. Not severe enough to require transfusion. She will probably be stable for discharge in a day or two.
[2017-06-01 14:00] VITALS: BP 148/66
[2017-06-01] MEDS: SUMAtriptan SUCCINATE 25 MG TAB PO PRN (16:33)
[2017-06-01] MEDS: AMITRIPTYLINE 25 MG TAB PO SCH (20:04)
[2017-06-01] MEDS: PROPRANOLOL 60 MG LA CAP PO SCH (20:04)
[2017-06-01 22:00] VITALS: BP 188/72
[2017-06-02] MEDS: LEVOTHYROXINE 150MCG TABLET (0.15MG) PO SCH (05:44)
[2017-06-02 06:00] VITALS: BP 149/76
[2017-06-02] MEDS: SLF 3 ML SYR IV SCH ×3 (06:00→21:43)
[2017-06-02 07:29] LABS: BASO % 0.3 % (0.0-1.0); EOS # 0.2 10^3/uL (0.0-0.50); EOS % 1.9 % (0.0-3.0); IMMATURE GRANULOCYTE % 0.6 % (0-0); LYMPH # 0.8 10^3/uL (1.5-4.5); LYMPH % 7.9 % (24.0-44.0); MEAN CORPUSCULAR HEMOGLOBIN 34.4 pg (27.0-33.0); MEAN CORPUSCULAR HGB CONC 31.4 g/dl (32.0-36.5); MONO % 14.9 % (0.0-5.0); NEUTROPHILS % 74.4 % (36.0-66.0); PLATELET COUNT, AUTOMATED 273 10^3/uL (150-450); RED CELL DISTRIBUTION WIDTH 12.5 % (11.5-14.5); WHITE BLOOD COUNT 9.4 10^3/uL (4.0-10.0)
[2017-06-02 07:53] LABS: ALBUMIN 2.6 GM/DL (3.2-5.2); ALBUMIN/GLOBULIN RATIO 0.58 (1.00-1.93); ALKALINE PHOSPHATASE 96 U/L (45-117); ALT/SGPT 31 U/L (12-78); ANION GAP 6 MEQ/L (8-16); AST/SGOT 26 U/L (15-37); BILIRUBIN,TOTAL 0.3 MG/DL (0.2-1.0); BLOOD UREA NITROGEN 14 MG/DL (7-18); CALCIUM LEVEL 9.3 MG/DL (8.8-10.2); CARBON DIOXIDE LEVEL 32 MEQ/L (21-32); CHLORIDE LEVEL 101 MEQ/L (98-107); GLOMERULAR FILTRATION RATE > 60.0 (>45); GLUCOSE, FASTING 113 MG/DL (80-110); POTASSIUM SERUM 4.5 MEQ/L (3.5-5.1); SODIUM LEVEL 139 MEQ/L (136-145); TOTAL PROTEIN 7.1 GM/DL (6.4-8.2)
[2017-06-02 08:29] LABS: ADD MORPHOLOGY? YES; MEAN CORPUSCULAR VOLUME 109.6 fl (80.0-96.0); MONO # 1.4 10^3/uL (0.0-0.8)
[2017-06-02 08:32] LABS: ANISOCYTOSIS 1+
[2017-06-02] MEDS: sulfaSALAzine 500 MG TABEC PO SCH ×2 (08:45→20:21)
[2017-06-02] MEDS: EZETIMIBE 10 MG TAB (ZETIA) PO SCH (08:45)
[2017-06-02] MEDS: HYDROXYCHLOROQUINE 200 MG TAB PO SCH ×2 (08:45→20:20)
[2017-06-02] MEDS: DOCUSATE SODIUM 100 MG CAP PO SCH ×2 (08:45→20:21)
[2017-06-02] MEDS: FOLIC ACID 1 MG TAB PO SCH ×2 (08:45→20:21)
[2017-06-02] MEDS: PREGABALIN 100 MG CAP (LYRICA) PO SCH ×2 (08:46→20:21)
[2017-06-02] MEDS: GEMFIBROZIL 600 MG TAB PO SCH ×2 (08:46→20:21)
[2017-06-02] MEDS: DULoxetine 30 MG CAP (CYMBALTA) PO SCH ×2 (08:46→20:22)
[2017-06-02] MEDS: carBAMazepine XR 200 MG TAB PO SCH ×2 (08:47→20:22)
[2017-06-02] MEDS: ENOXAPARIN 40 MG/0.4 ML SYRINGE (J1650) SC SCH (08:47)
[2017-06-02] MEDS: MELOXICAM (MOBIC) 7.5 MG TAB PO SCH (08:47)
[2017-06-02] MEDS: NYSTATIN 100,000 UNITS/GM TOPICAL PWD 15 GM TOP SCH ×2 (08:50→21:00)
[2017-06-02] MEDS ORDERED: METHOTREXATE 2.5 MG TAB (J8610 PER 2.5MG) PO SCH (09:00)
[2017-06-02] MEDS: cefTRIAXone SOD 1 GM in D5W 50 ML IV SCH (12:22)
--- NOTE | 2017-06-02 12:32 | IPN ---
DATE: 06/02/2017 Martha looks and feels better. She is more alert than yesterday. She is approaching her baseline mental status. No fever. No chills. PHYSICAL EXAMINATION: Vital signs stable. Afebrile. Lungs clear. Heart regular rhythm. Abdomen soft, nontender. No peripheral edema. Moves arms and legs with equal strength. Nonfocal neurologic exam. She is alert, oriented and conversant. Knows the month, year and location. LABS: BMP and CBC unchanged. IMPRESSION: Encephalopathy secondary to gram negative sepsis. Will continue the IV Rocephin. She might be able to be discharged tomorrow. Will get a home safety evaluation. She could go home on by mouth antibiotic, probably Keflex 500 mg by mouth every 6 hours, favoring a higher dose due to her immunosuppressed state.
[2017-06-02 14:00] VITALS: BP 126/58
[2017-06-02 20:27] VITALS: BP 158/84
[2017-06-02] MEDS: PROPRANOLOL 60 MG LA CAP PO SCH (20:27)
[2017-06-02] MEDS: AMITRIPTYLINE 25 MG TAB PO SCH (20:28)
[2017-06-02 22:00] VITALS: BP 158/84
[2017-06-03] MEDS: LEVOTHYROXINE 150MCG TABLET (0.15MG) PO SCH (05:23)
[2017-06-03 06:00] VITALS: BP 150/84
[2017-06-03] MEDS: SLF 3 ML SYR IV SCH ×2 (06:00→12:23)
[2017-06-03 07:09] LABS: BASO % 0.3 % (0.0-1.0); EOS # 0.3 10^3/uL (0.0-0.50); EOS % 3.3 % (0.0-3.0); IMMATURE GRANULOCYTE % 0.7 % (0-0); LYMPH # 0.8 10^3/uL (1.5-4.5); LYMPH % 8.5 % (24.0-44.0); MEAN CORPUSCULAR HGB CONC 31.7 g/dl (32.0-36.5); MONO % 10.7 % (0.0-5.0); NEUTROPHILS % 76.5 % (36.0-66.0); PLATELET COUNT, AUTOMATED 350 10^3/uL (150-450); RED CELL DISTRIBUTION WIDTH 12.4 % (11.5-14.5); WHITE BLOOD COUNT 9.2 10^3/uL (4.0-10.0)
[2017-06-03 07:11] LABS: ADD MORPHOLOGY? YES; MEAN CORPUSCULAR VOLUME 107.1 fl (80.0-96.0)
[2017-06-03 07:38] LABS: ANISOCYTOSIS 1+
[2017-06-03 07:46] LABS: ALBUMIN 2.7 GM/DL (3.2-5.2); ALBUMIN/GLOBULIN RATIO 0.71 (1.00-1.93); ALKALINE PHOSPHATASE 107 U/L (45-117); ALT/SGPT 31 U/L (12-78); ANION GAP 5 MEQ/L (8-16); AST/SGOT 25 U/L (15-37); BILIRUBIN,TOTAL 0.4 MG/DL (0.2-1.0); BLOOD UREA NITROGEN 13 MG/DL (7-18); CARBAMAZEPINE (TEGRETOL) LEVEL 6.8 UG/ML (4.0-10.0); CARBON DIOXIDE LEVEL 36 MEQ/L (21-32); CHLORIDE LEVEL 100 MEQ/L (98-107); CREATININE FOR GFR 0.48 MG/DL (0.55-1.02); GLOMERULAR FILTRATION RATE > 60.0 (>45); GLUCOSE, FASTING 100 MG/DL (80-110); POTASSIUM SERUM 4.7 MEQ/L (3.5-5.1); SODIUM LEVEL 141 MEQ/L (136-145); TOTAL PROTEIN 6.5 GM/DL (6.4-8.2)
[2017-06-03] MEDS: DOCUSATE SODIUM 100 MG CAP PO SCH (10:06)
[2017-06-03] MEDS: PREGABALIN 100 MG CAP (LYRICA) PO SCH (10:06)
[2017-06-03] MEDS: HYDROXYCHLOROQUINE 200 MG TAB PO SCH (10:06)
[2017-06-03] MEDS: carBAMazepine XR 200 MG TAB PO SCH (10:07)
[2017-06-03] MEDS: sulfaSALAzine 500 MG TABEC PO SCH (10:07)
[2017-06-03] MEDS: FOLIC ACID 1 MG TAB PO SCH (10:07)
[2017-06-03] MEDS: MELOXICAM (MOBIC) 7.5 MG TAB PO SCH (10:07)
[2017-06-03] MEDS: DULoxetine 30 MG CAP (CYMBALTA) PO SCH (10:07)
[2017-06-03] MEDS: GEMFIBROZIL 600 MG TAB PO SCH (10:07)
[2017-06-03] MEDS: EZETIMIBE 10 MG TAB (ZETIA) PO SCH (10:07)
[2017-06-03] MEDS: NYSTATIN 100,000 UNITS/GM TOPICAL PWD 15 GM TOP SCH (10:08)
[2017-06-03] MEDS: ENOXAPARIN 40 MG/0.4 ML SYRINGE (J1650) SC SCH (10:08)
[2017-06-03] MEDS ORDERED: MAPA325T3 PO (11:06)
[2017-06-03] MEDS ORDERED: KEFL500C17 PO (11:06)
--- NOTE | 2017-06-03 11:41 | DSES ---
DATE OF ADMISSION: 05/29/2017 DATE OF DISCHARGE: 06/03/2017 PRIMARY CARE PROVIDER: Dr. Ahmet Velasco ATTENDING PHYSICIAN: Dr. Ahmet Velasco HISTORY OF PRESENT ILLNESS: Martha Reyna is a 67-year-old female patient, who follows with Dr. Velasco, who came into the emergency department with fever and altered mental status. Workup in the emergency room (ER) showed likely delirium from toxic metabolic encephalopathy likely due to urinary tract infection. The patient did have a head CT in the ER that showed age-appropriate cerebellar and cerebral atrophy along with mild chronic microvascular disease and no evidence of acute intracranial pathology. Patient was admitted for delirium from the urinary tract infection (UTI) and placed on ceftriaxone. Blood cultures and urine culture did grow Escherichia (E) coli. Patient was maintained on ceftriaxone, and delirium progressively did improve. The patient is immunocompromised as she does have rheumatoid arthritis and is on methotrexate. By day of discharge, patient was doing well and felt to be back to her baseline. Plan is to discharge her home on Keflex 500 mg four times a day. Her WBC did trend down and was within normal limits by day of discharge. Patient will need to followup with her primary care provider (PCP), Dr. Velasco, next week. PHYSICAL EXAM: VITALS: Temperature 96.5, pulse 68, respiratory rate 18, blood pressure is 150/84, pulse oximetry 94% on room air. GENERAL: Patient is alert and oriented times three. No acute distress. CHEST: Is clear to auscultation bilaterally. No wheezes, rales, rhonchi, or crackles. HEART: Regular rate and rhythm. ABDOMEN: Positive bowel sounds. Soft, nontender. EXTREMITIES: No edema. NEUROLOGIC: Nonfocal, grossly. LABS: WBC 9.2, hemoglobin 10.0, hematocrit 31.5, platelets 350. Sodium 141, potassium 4.7, chloride 100, carbon dioxide 36, BUN 13, creatinine 0.48, glucose 100, calcium 9.0, total bilirubin 0.4, AST 25, ALT 31, alkaline phosphatase 107, total protein 6.5, albumin 2.7. Carbamazepine level was 6.8. MEDICATIONS: - acetaminophen 650 mg by mouth every 4 hours as needed pain or fever - Keflex 500 mg by mouth every 6 hours times 7 days - amitriptyline 75 mg by mouth nightly - carbamazepine ER 400 mg by mouth twice a day - vitamin B12, 1000 mcg intramuscularly (IM) every month - Cymbalta 60 mg by mouth twice a day - Zetia 10 mg by mouth daily - folic acid 1 mg by mouth twice a day - gemfibrozil 600 mg by mouth twice a day - hydroxychloroquine sulfate 200 mg by mouth twice a day - Synthroid 150 mcg by mouth daily - meloxicam 15 mg by mouth daily - methotrexate 15 mg by mouth every week - Lyrica 300 mg by mouth twice a day - propranolol 120 mg by mouth nightly - sulfasalazine 500 mg by mouth twice a day DISCHARGE INSTRUCTIONS: Followup with Dr. Velasco in a week. Activity as tolerated. Diet is carbohydrate consistent. DISCHARGE DIAGNOSES: 1. Encephalopathy secondary to gram-negative sepsis due to E. coli from urinary source. 2. Immunosuppression. 3. Rheumatoid arthritis. 4. Hypothyroidism. 5. Anemia. 6. Escherichia coli urinary tract infection. Edited: arianna 06/04/2017 [id number]
[2017-06-03] MEDS: cefTRIAXone SOD 1 GM in D5W 50 ML IV SCH (12:23)
[2017-06-03 14:00] VITALS: BP 183/103
[2017-06-03] MEDS ORDERED: INFLUENZA VIRUS VACCINE HIGH DOSE 0.5 ML SYRINGE (90662) IM ONE (15:30)
[2017-06-03 16:14] VITALS: BP 164/90
[2017-06-03 18:33] VITALS: BP 180/90
[2017-06-06] MEDS ORDERED: CYANOCOBALAMIN 1,000 MCG/ML VIAL (J3420) IM SCH (09:00)
== END 2017-06-03 18:55 | disposition home health service (06) | DRG 871 ==
LOC: M ED 05:21 → M ED INP 13:02 → M ICU 05-30 09:36 → M MS5PR 05-30 17:05
PROVIDERS: ADMIT Family Medicine; ATTEND Family Medicine
DX: A41.51 Sepsis due to Escherichia coli [E. coli] (principal); G93.40 Encephalopathy, unspecified; N39.0 Urinary tract infection, site not specified; R65.20 Severe sepsis without septic shock; E03.9 Hypothyroidism, unspecified; D51.3 Other dietary vitamin B12 deficiency anemia; M06.9 Rheumatoid arthritis, unspecified; Z79.899 Other long term (current) drug therapy

== ENCOUNTER → 2017-06-14 | Outpatient (REF) | payer MEDICARE ==
[~2017-06-14] MED LIST changes: +EZET10TA; +KEFL500C17 PO; +MAPA325T3 PO
[2017-06-14 13:28] LABS: MICROSCOPIC INDICATED? MAN YES (NO)
[2017-06-14 13:29] LABS: BACTERIA, URINE SMALL AMOUNT; HYALINE CAST, URINE NONE SEEN /lpf (0-1); MICROSCOPIC EXAM PERFORMED; RBC, URINE 0-1 /hpf (0-3); SQUAMOUS EPITHELIAL CELL URINE MOD AMOUNT /hpf (SMALL AMT); WBC, URINE 40-50 /hpf (0-3)
== END ==
LOC: M SFHCADAM 13:07
PROVIDERS: ATTEND Family Medicine
DX: A49.8 Other bacterial infections of unspecified site (principal); N39.0 Urinary tract infection, site not specified

== ENCOUNTER → 2017-10-07 | Outpatient (REF) | payer MEDICARE ==
[2017-10-07 20:16] LABS: HEMATOCRIT 38.7 % (36.0-47.0); HEMOGLOBIN 12.5 g/dl (12.0-16.0); MEAN CORPUSCULAR HEMOGLOBIN 34.3 pg (27.0-33.0); MEAN CORPUSCULAR HGB CONC 32.3 g/dl (32.0-36.5); MEAN CORPUSCULAR VOLUME 106.3 fl (80.0-96.0); PLATELET COUNT, AUTOMATED 401 10^3/uL (150-450); RED BLOOD COUNT 3.64 10^6/uL (4.00-5.40); RED CELL DISTRIBUTION WIDTH 12.6 % (11.5-14.5); WHITE BLOOD COUNT 6.5 10^3/uL (4.0-10.0)
[2017-10-07 20:29] LABS: ESTIMATED AVERAGE GLUCOSE 108 MG/DL (60-110); HEMOGLOBIN A1c 5.4 %
[2017-10-07 20:32] LABS: ALBUMIN 3.7 GM/DL (3.2-5.2); ALBUMIN/GLOBULIN RATIO 1.06 (1.00-1.93); ALKALINE PHOSPHATASE 107 U/L (45-117); ALT/SGPT 19 U/L (12-78); ANION GAP 8 MEQ/L (8-16); AST/SGOT 16 U/L (7-37); BILIRUBIN,TOTAL 0.3 MG/DL (0.2-1.0); BLOOD UREA NITROGEN 13 MG/DL (7-18); CARBON DIOXIDE LEVEL 32 MEQ/L (21-32); CHLORIDE LEVEL 98 MEQ/L (98-107); CHOLESTEROL LEVEL 306 MG/DL (<200); CHOLESTEROL RISK RATIO 4.707 (<5); CREATININE FOR GFR 0.66 MG/DL (0.55-1.30); FREE T4 0.73 NG/DL (0.76-1.46); GLOMERULAR FILTRATION RATE > 60.0 (>45); GLUCOSE, FASTING 97 MG/DL (70-100); HDL CHOLESTEROL 65 MG/DL (>40); LDL CHOLESTEROL 170.2 MG/DL (<100); NON-HDL-C 241 MG/DL; POTASSIUM SERUM 5.1 MEQ/L (3.5-5.1); SODIUM LEVEL 138 MEQ/L (136-145); THYROID STIMULATING HORMONE 0.527 uIU/ML (0.358-3.740); TOTAL PROTEIN 7.2 GM/DL (6.4-8.2); TRIGLYCERIDES LEVEL 354 MG/DL (<150)
== END ==
LOC: M SFHCADAM 14:56
DX: D64.89 Other specified anemias (principal); E11.40 Type 2 diabetes mellitus with diabetic neuropathy, unspecified; E03.9 Hypothyroidism, unspecified; E78.2 Mixed hyperlipidemia
CPT/HCPCS: 84443

== ENCOUNTER → 2018-02-10 | Outpatient (REF) | payer MEDICARE ==
[2018-02-10 20:11] LABS: FREE T4 0.79 NG/DL (0.76-1.46); THYROID STIMULATING HORMONE 0.417 uIU/ML (0.358-3.740)
== END ==
LOC: M SFHCADAM 14:15
DX: E03.9 Hypothyroidism, unspecified (principal)
CPT/HCPCS: 84443

== ENCOUNTER → 2018-02-10 | Outpatient (CLI) | payer MEDICARE | LOC: M ADAMS 14:29 | DX: R93.8 Abnormal findings on diagnostic imaging of other specified body structures (principal); R06.09 Other forms of dyspnea | CPT/HCPCS: 71046; 84443 ==

== ENCOUNTER → 2018-02-21 | Outpatient (CLI) | payer MEDICARE | LOC: M RAD 14:50 | DX: R91.8 Other nonspecific abnormal finding of lung field (principal) | CPT/HCPCS: 71250 ==

== ENCOUNTER → 2018-04-06 | Outpatient (REF) | payer MEDICARE ==
[2018-04-06 20:37] LABS: APPEARANCE, URINE HAZY (CLEAR); BACTERIA, URINE AUTO 1+ (NEGATIVE); BILIRUBIN, URINE AUTO NEGATIVE (NEGATIVE); BLOOD, URINE BLOOD NEGATIVE (NEGATIVE); COLOR, URINE YELLOW (YELLOW); GLUCOSE, URINE (UA) AUTO NEGATIVE (NEGATIVE); KETONE, URINE AUTO NEGATIVE (NEGATIVE); LEUKOCYTE ESTERASE, URINE AUTO 2+ (NEGATIVE); MUCUS, URINE SMALL (NEGATIVE); NITRITE, URINE AUTO NEGATIVE (NEGATIVE); PROTEIN, URINE AUTO NEGATIVE (NEGATIVE); RBC, URINE AUTO 1 /HPF (0-3); SPECIFIC GRAVITY URINE AUTO 1.017 (1.002-1.035); SQUAMOUS EPITHELIAL CELL UR AU 3 /HPF (0-6); UROBILINOGEN, URINE AUTO 0.2 mg/dL (0.0-2.0); WBC, URINE AUTO 16 /HPF (0-3)
== END ==
LOC: M SFHCADAM 19:56
DX: N39.0 Urinary tract infection, site not specified (principal)
CPT/HCPCS: 81001

== ENCOUNTER → 2018-05-17 | Outpatient (REF) | payer MEDICARE ==
[2018-05-17 19:39] LABS: HEMATOCRIT 38.5 % (36.0-47.0); HEMOGLOBIN 12.9 g/dl (12.0-15.5); MEAN CORPUSCULAR HEMOGLOBIN 35.4 pg (27.0-33.0); MEAN CORPUSCULAR HGB CONC 33.5 g/dl (32.0-36.5); MEAN CORPUSCULAR VOLUME 105.8 fl (80.0-96.0); PLATELET COUNT, AUTOMATED 398 10^3/uL (150-450); RED BLOOD COUNT 3.64 10^6/uL (4.00-5.40); RED CELL DISTRIBUTION WIDTH 13.3 % (11.5-14.5); WHITE BLOOD COUNT 6.8 10^3/uL (4.0-10.0)
[2018-05-17 19:58] LABS: ESTIMATED AVERAGE GLUCOSE 91 MG/DL (60-110); HEMOGLOBIN A1c 4.8 %
[2018-05-17 20:09] LABS: ALBUMIN 3.8 GM/DL (3.2-5.2); ALBUMIN/GLOBULIN RATIO 1.06 (1.00-1.93); ALKALINE PHOSPHATASE 110 U/L (45-117); ALT/SGPT 15 U/L (12-78); ANION GAP 10 MEQ/L (8-16); AST/SGOT 14 U/L (7-37); BILIRUBIN,TOTAL 0.3 MG/DL (0.2-1.0); BLOOD UREA NITROGEN 14 MG/DL (7-18); CALCIUM LEVEL 9.8 MG/DL (8.8-10.2); CARBON DIOXIDE LEVEL 29 MEQ/L (21-32); CHLORIDE LEVEL 93 MEQ/L (98-107); CREATININE FOR GFR 0.62 MG/DL (0.55-1.30); GLOMERULAR FILTRATION RATE > 60.0 (>45); GLUCOSE, FASTING 97 MG/DL (70-100); SODIUM LEVEL 132 MEQ/L (136-145); TOTAL PROTEIN 7.4 GM/DL (6.4-8.2)
== END ==
LOC: M SFHCADAM 16:14
DX: D51.9 Vitamin B12 deficiency anemia, unspecified (principal); E11.40 Type 2 diabetes mellitus with diabetic neuropathy, unspecified; E03.9 Hypothyroidism, unspecified
CPT/HCPCS: 84443

== ENCOUNTER → 2018-10-13 | Outpatient (CLI) | payer MEDICARE ==
[~2018-10-13] MED LIST changes: -CLON0.5T PO; +CLON0.5T8 PO; +FOLI1TAB11 PO; -FOLI1TAB4 PO; -GEMF600T PO; +GEMF600T5 PO; +IPRA0.00 NEB; -IPRASOL4 NEB; +MELO15TA28 PO; -MELO15TA4 PO; +METH2.5T48 PO; -METH2.5TA PO
--- NOTE | 2018-10-13 19:29 | REP ---
RIGHT KNEE SERIES: Five views of the right knee are performed. There is no acute fracture or dislocation. There is moderate diffuse space narrowing with subchondral sclerosis and spurring. Compared to the prior study of 01/30/2007 the degree of joint space narrowing has only minimally worsened. There is severe narrowing with erosive change at the patellofemoral joint. There is significant irregularity of the articulating surface of the patella with a large lateral patellar facet spur. The opposing anterior aspect of the lateral femoral condyle demonstrates similar erosive changes and articulating surface irregularity. There are large spurs of the femoral condyles both anteriorly and posteriorly. There are also large superior and inferior patellar spurs. There is a large oval somewhat irregular calcific body in the lateral suprapatellar bursa measuring 5.4 x 2.9 cm increased in size since the prior study. A smaller joint body is seen more medially and inferiorly measuring about 1.8 cm in diameter. IMPRESSION: Arthritic changes as above which are fairly significant and have mildly progressed since 01/30/2007. Two prominent calcific bodies in the suprapatellar bursa have increased in size somewhat since that prior exam. Electronically Signed by Link Sheets MD 10/14/2018 03:58 P
== END ==
LOC: M ADAMS 16:50
PROVIDERS: ATTEND Family Medicine
DX: M17.11 Unilateral primary osteoarthritis, right knee (principal); M25.761 Osteophyte, right knee; M23.51 Chronic instability of knee, right knee
CPT/HCPCS: 73564; G0463

== ENCOUNTER → 2019-01-06 | Outpatient (REF) | payer MEDICARE ==
[2019-01-06 16:25] LABS: INR 0.95; PROTHROMBIN TIME 12.8 SECONDS (12.1-14.4)
[2019-01-06 16:26] LABS: PARTIAL THROMBOPLASTIN TIME 36.3 SECONDS (25.4-37.6)
== END ==
LOC: M LABDRAW1 15:50
PROVIDERS: ATTEND Physical Medicine & Rehabilitation
DX: Z01.812 Encounter for preprocedural laboratory examination (principal); Z79.01 Long term (current) use of anticoagulants

== ENCOUNTER → 2019-04-06 | Outpatient (CLI) | payer MEDICARE ==
[~2019-04-06] MED LIST changes: +ACET-897 PO; +CALC-176 PO; +CICL0.7739 EXT; +CLON0.5T2 PO; -CLON0.5T8 PO; +D 50CAP PO; -DULO1CAP3 PO; +DULO1CAP6 PO; -EZET10TA; +EZET10TA21; +HYDR-3713 PO; +MULT-40 PO; +OCUVTAB4 PO; +PROAAER10 INH; +SUMA25TA3 PO; +VITA200012 PO; +VITMTA PO; +ZEAS2POW4 TOP; +ZETI10TA16 PO; -ZETI10TA30 PO
--- NOTE | 2019-04-11 19:20 | SLEEPCENT ---
DATE OF PROCEDURE: 04/06/2019 ORDERED BY: Dr. Stephanie Parry Nocturnal polysomnography was performed for evaluation of sleep physiology in this patient with a history of excessive somnolence and comorbidities of pulmonary hypertension. 8 hours and 20 minutes of data were reviewed. There were 418 minutes of sleep identified. Sleep latency was prolonged at 26.5 minutes. Rapid eye movement (REM) latency was unable to be measured. The patient did not achieve REM sleep. Overall sleep architecture showed poor progression. Sleep efficiency was fair at 84.5%. The electrocardiogram showed a sinus rhythm with an average heart rate of 75 beats per minute. EEG showed some coarsening in background. No focal events were identified. There were 246 respiratory events identified of 10 seconds in duration or greater for an apnea-hypopnea index of 35.3. The events were primarily obstructive, more frequent in the supine posture, not associated with a specific sleep stage. Arousals from respiratory events were seen 2.2 times per hour and oxygen desaturations were seen into the mid 80s despite the addition of supplemental oxygen early in the study. There was also some limb activity but limb movement arousal index was normal at 0.9. IMPRESSION: Obstructive sleep apnea syndrome (G47.33). Apnea-hypopnea index 35.3. RECOMMENDATIONS: The patient should be encouraged to return to the sleep disorder center for pressure therapy. In the interim, alcohol and sedative avoidance should be practiced and caution exercised during the operation of motor vehicles.
== END ==
LOC: M SLEEP 19:33
PROVIDERS: ATTEND Internal Medicine Pulmonary Disease
DX: G47.33 Obstructive sleep apnea (adult) (pediatric) (principal)

== ENCOUNTER → 2019-04-10 | Outpatient (CLI) | payer MEDICARE ==
[2019-04-10 18:58] LABS: C REACTIVE PROTEIN QUANTITATIV 0.54 MG/DL (0.00-0.30); NT-PRO BNP 957 PG/ML (<125); RHEUMATOID FACTOR QUANT < 10.0 IU/ML (<15.0)
[2019-04-11 15:20] LABS: BLOOD UREA NITROGEN 9 MG/DL (7-18); CALCIUM LEVEL 9.2 MG/DL (8.8-10.2); CARBON DIOXIDE LEVEL 37 MEQ/L (21-32); CHLORIDE LEVEL 87 MEQ/L (98-107); CREATININE FOR GFR 0.62 MG/DL (0.55-1.30); GLOMERULAR FILTRATION RATE > 60.0 (>45); GLUCOSE, FASTING 83 MG/DL (70-100); POTASSIUM SERUM 4.7 MEQ/L (3.5-5.1); SODIUM LEVEL 129 MEQ/L (136-145)
[2019-04-17 11:17] LABS: ANCA-ATYPICAL <1:20 titer (Neg:<1:20); ANGIOTENSIN 1 CONVERTING ENZYM 62 U/L (14-82); ANTI DS-DNA AB <1:10 titer (.); ANTI JO-1 ANTIBODIES <0.2 AI (0.0-0.9); ANTINUCLEAR ANTIBODIES DIRECT Negative (Negative); ASPERGILLUS FUMIGATUS AB Negative (Negative); AUREOBASIDIUM PULLULANS Negative (Negative); CYCLIC CITRULLINATED PEPTIDE 3 units (0-19); CYTOPLASMIC NEUTROP AB ANCA-C <1:20 titer (Neg:<1:20); MICROPOLYSPORA FAENI AB Negative (Negative); PERINUCLEAR AB ANCA-P <1:20 titer (Neg:<1:20); PIGEON SERUM AB Negative (Negative); RNP ANTIBODIES 0.4 AI (0.0-0.9); SJOGREN'S ANTI SS-A <0.2 AI (0.0-0.9); SJOGREN'S ANTI SS-B <0.2 AI (0.0-0.9); SMITH ANTIBODIES <0.2 AI (0.0-0.9); THERMOACTINOMYCES SACCHARI Negative (Negative); THERMOACTINOMYCES VULGARIS Negative (Negative)
== END ==
LOC: M SMT 15:02
PROVIDERS: ATTEND Internal Medicine Pulmonary Disease
DX: G47.33 Obstructive sleep apnea (adult) (pediatric) (principal)

== ENCOUNTER → 2019-04-11 | Outpatient (CLI) | payer MEDICARE ==
[~2019-04-11] MED LIST changes: -ACET-897 PO; -CICL0.7739 EXT; -CLON0.5T2 PO; +CLON0.5T8 PO; -PROAAER10 INH; -SUMA25TA3 PO; -VITA200012 PO; -VITMTA PO; -ZEAS2POW4 TOP
--- NOTE | 2019-04-18 13:31 | SLEEPCENT ---
DATE OF PROCEDURE: 04/11/2019 ORDERED BY: Dr. Parry Nocturnal polysomnography was performed for the titration of pressure therapy in this patient with obstructive sleep apnea syndrome. Apnea-hypopnea index of 35.3. For testing, a [employer] full-face mask of small size was used, 4 cm of water pressure were applied to the circuit, and the lights were extinguished. 8 hours and 18 minutes of data were reviewed. There were 450 minutes of sleep identified. Sleep latency was short at 3.5 minutes. Rapid eye movement (REM) latency was prolonged at 193 minutes. Sleep architecture improved late in the study. Overall sleep efficiency was 92.8%. The electrocardiogram showed sinus rhythm with PVCs. Average heart rate 80 beats per minute. Electroencephalogram (EEG) showed coarsening in background, otherwise reasonably normal waveforms for awake and sleep. Persistent respiratory events prompted an increase in C-PAP pressure. Some hypopneic events were seen late in the study. Oxygen desaturations prompted the addition of supplemental oxygen. Best sleep was seen at a C-PAP pressure of 14 centimeters. The 1 liter of oxygen that was bled into the C-PAP mask made little difference. Saturations remained in the upper 80s. IMPRESSION: Obstructive sleep apnea syndrome (G47.33). RECOMMENDATIONS: Nightly use of pressure therapy 14 cm of water.
== END ==
LOC: M LAB 19:21
PROVIDERS: ATTEND Internal Medicine Pulmonary Disease
DX: G47.33 Obstructive sleep apnea (adult) (pediatric) (principal)

== ENCOUNTER → 2019-04-21 | Outpatient (CLI) | payer MEDICARE ==
[~2019-04-21] MED LIST changes: +ACET-897 PO; +CICL0.7739 EXT; +CLON0.5T2 PO; -CLON0.5T8 PO; +PROAAER10 INH; +SUMA25TA3 PO; +VITA200012 PO; +VITMTA PO; +ZEAS2POW4 TOP
[2019-04-21 17:51] LABS: BLOOD UREA NITROGEN 9 MG/DL (7-18); CALCIUM LEVEL 9.9 MG/DL (8.8-10.2); CARBON DIOXIDE LEVEL 42 MEQ/L (21-32); CHLORIDE LEVEL 89 MEQ/L (98-107); CREATININE FOR GFR 0.55 MG/DL (0.55-1.30); GLOMERULAR FILTRATION RATE > 60.0 (>45); GLUCOSE, FASTING 100 MG/DL (70-100); NT-PRO BNP 641 PG/ML (<125); POTASSIUM SERUM 4.8 MEQ/L (3.5-5.1); SODIUM LEVEL 133 MEQ/L (136-145)
== END ==
LOC: M SMT 13:16
PROVIDERS: ATTEND Internal Medicine Pulmonary Disease
DX: G47.33 Obstructive sleep apnea (adult) (pediatric) (principal)

== ENCOUNTER 2019-05-22 21:45 | Inpatient (IN) | payer MEDICARE ==
[~2019-05-22] VITALS: Ht 165.1 cm; Wt 114.3 kg
[~2019-05-22 21:45] MED LIST changes: -ACET-897 PO; -CICL0.7739 EXT; -CLON0.5T2 PO; +CLON0.5T8 PO; -PROAAER10 INH; -SUMA25TA3 PO; -VITA200012 PO; -VITMTA PO; -ZEAS2POW4 TOP
[2019-05-22] MEDS ORDERED: NS 1,000 ML IV ONE (22:30)
[2019-05-22 23:16] LABS: BASO % 0.4 % (0.0-1.0); EOS # 0.4 10^3/uL (0.0-0.5); EOS % 5.8 % (0.0-3.0); HEMATOCRIT 37.1 % (36.0-47.0); HEMOGLOBIN 11.7 g/dl (12.0-15.5); LYMPH # 0.7 10^3/uL (1.5-5.0); LYMPH % 9.3 % (24.0-44.0); MEAN CORPUSCULAR HEMOGLOBIN 32.9 pg (27.0-33.0); MEAN CORPUSCULAR HGB CONC 31.5 g/dl (32.0-36.5); MEAN CORPUSCULAR VOLUME 104.2 fl (80.0-96.0); MONO # 0.9 10^3/uL (0.0-0.8); MONO % 11.9 % (0.0-5.0); NEUTROPHILS # 5.2 10^3/uL (1.5-8.5); NEUTROPHILS % 72.3 % (36.0-66.0); PLATELET COUNT, AUTOMATED 272 10^3/uL (150-450); RED BLOOD COUNT 3.56 10^6/uL (4.00-5.40); WHITE BLOOD COUNT 7.2 10^3/uL (4.0-10.0)
--- NOTE | 2019-05-22 23:21 | REPVR ---
PROCEDURE INFORMATION: Exam: CT Head Without Contrast Exam date and time: 05/22/2019 10:17 PM Clinical history: 69 years old, female; Altered mental status/memory loss TECHNIQUE: Imaging protocol: Computed tomography of the head without contrast. Radiation optimization: All CT scans at this facility use at least one of these dose optimization techniques: automated exposure control; mA and/or kV adjustment per patient size (includes targeted exams where dose is matched to clinical indication); or iterative reconstruction. COMPARISON: CT Head without contrast 05/29/2017 5:59 AM FINDINGS: Brain: There is no acute intracranial abnormality. Mild prominence of ventricles and sulci representing volume loss. Mild small vessel ischemic changes are seen. There is no mass, midline shift, or mass effect. Sheets-white matter differentiation is preserved. There is no evidence of hemorrhage. There is no extra-axial fluid collection. Basal cisterns are patent. Ventricles: See Brain Finding. Bones/joints: The visualized osseous structures are unremarkable. Sinuses: Visualized sinuses demonstrates mild mucosal thickening of ethmoidal air cells. Mastoid air cells: Mastoid air cells are clear. Soft tissues: Unremarkable. IMPRESSION: 1. Mild volume loss and small vessel ischemic changes. . 2. No acute intracranial abnormality given limitation of motion artifact. Electronically signed by: Enriqueta Taylor On 05/22/2019 23:20:45 PM
[2019-05-22 23:38] LABS: OSMOLALITY SERUM 298 MOSM/KG (280-301)
[2019-05-22 23:46] LABS: ALBUMIN 3.2 GM/DL (3.2-5.2); ALT/SGPT 15 U/L (12-78); BILIRUBIN,DIRECT 0.2 MG/DL (0.0-0.2); BILIRUBIN,TOTAL 0.4 MG/DL (0.2-1.0); BLOOD UREA NITROGEN 10 MG/DL (7-18); CALCIUM LEVEL 8.8 MG/DL (8.8-10.2); CARBON DIOXIDE LEVEL 35 MEQ/L (21-32); CHLORIDE LEVEL 95 MEQ/L (98-107); CK-MB VALUE MASS < 1.0 NG/ML (<3.6); CPK CREATINE PHOSPHOKINASE 37 U/L (26-192); CREATININE FOR GFR 0.78 MG/DL (0.55-1.30); ETHYL ALCOHOL (ETHANOL) < 0.003 % (0.000-0.010); GLOMERULAR FILTRATION RATE > 60.0 (>45); GLUCOSE, FASTING 89 MG/DL (70-100); POTASSIUM SERUM 4.6 MEQ/L (3.5-5.1); SODIUM LEVEL 133 MEQ/L (136-145); TOTAL PROTEIN 6.6 GM/DL (6.4-8.2); TROPONIN I < 0.02 NG/ML (< 0.10)
[2019-05-23 00:18] LABS: AMPHETAMINES LEVEL URINE NEGATIVE (NEGATIVE); BARBITURATES URINE NEGATIVE (NEGATIVE); BENZODIAZEPINES URINE NEGATIVE (NEGATIVE); CANNABINOIDS URINE NEGATIVE (NEGATIVE); COCAINE METABOLITE URINE NEGATIVE (NEGATIVE); METHADONE URINE NEGATIVE (NEGATIVE); OPIATES URINE NEGATIVE (NEGATIVE); PHENCYCLIDINE URINE NEGATIVE (NEGATIVE)
[2019-05-23] MEDS ORDERED: ISOVUE-370 76% 100ML VIAL (Q9967) As Ordered ONE (00:27)
--- NOTE | 2019-05-23 01:19 | REPVR ---
PROCEDURE INFORMATION: Exam: CT Angiography Chest With Contrast Exam date and time: 05/23/2019 12:10 AM Clinical history: 69 years old, female; Chest pain; Type not specified; Additional info: AMS, abd/chest pain TECHNIQUE: Imaging protocol: Computed tomographic angiography of the chest with intravenous contrast. 3D rendering: MIP reconstructed images were created and reviewed. Radiation optimization: All CT scans at this facility use at least one of these dose optimization techniques: automated exposure control; mA and/or kV adjustment per patient size (includes targeted exams where dose is matched to clinical indication); or iterative reconstruction. Contrast material: ISO; Contrast volume: 100 ml; Contrast route: AC; COMPARISON: CT ANGIO CHEST 02/23/2019 8:37 PM FINDINGS: Pulmonary arteries: Pulmonary artery is enlarged measuring 3.7 cm may represent pulmonary hypertension. No pulmonary emboli. Aorta: Unremarkable. No aortic aneurysm. No aortic dissection. Lungs: Bilateral ground glass densities with areas of atelectasis and scarring. Findings may represent inflammation versus edema. Low lung volumes. Pleural space: Unremarkable. No pneumothorax. No pleural effusion. Heart: Mild cardiomegaly. Spleen: Splenic granulomas. Intraperitoneal space: Trace ascites. Lymph nodes: Subcentimeter calcified lymph nodes in left hilum. Bones/joints: Mild dextroscoliosis of the thoracic spine with degenerative changes. Soft tissues: Unremarkable. IMPRESSION: No evidence of pulmonary embolism. Bilateral ground glass densities with areas of atelectasis and scarring. Findings may represent inflammation versus edema. Low lung volumes. Electronically signed by: Enriqueta Taylor On 05/23/2019 01:18:49 AM
--- NOTE | 2019-05-23 01:24 | REPVR ---
PROCEDURE INFORMATION: Exam: CT Abdomen and Pelvis With Contrast Exam date and time: 05/23/2019 12:10 AM Clinical history: 69 years old, female; Abdominal pain; Generalized; Additional info: AMS, abd/chest pain TECHNIQUE: Imaging protocol: Computed tomography of the abdomen and pelvis with intravenous contrast. Radiation optimization: All CT scans at this facility use at least one of these dose optimization techniques: automated exposure control; mA and/or kV adjustment per patient size (includes targeted exams where dose is matched to clinical indication); or iterative reconstruction. Contrast material: ISO; Contrast volume: 100 ml; Contrast route: AC; COMPARISON: No relevant prior studies available. FINDINGS: Liver: Diffuse fatty infiltration of liver. Gallbladder and bile ducts: Status post cholecystectomy. Pancreas: Mild atrophy of the pancreas. Spleen: Splenic granulomas. Adrenals: Normal. No mass. Kidneys and ureters: Normal. No hydronephrosis. Stomach and bowel: Moderate fecal loading of the colon. No bowel dilatation or obstruction. Appendix: Postsurgical changes in the right lower quadrant may represent prior appendectomy. Intraperitoneal space: Mild ascites. Vasculature: Mild atherosclerosis. Lymph nodes: Unremarkable. No enlarged lymph nodes. Bladder: Unremarkable as visualized. Reproductive: Status post hysterectomy. Bones/joints: Diffuse demineralization of the bones with degenerative changes. Soft tissues: Mild haziness of the anterior abdominal wall and right lateral visualized pelvis. Findings may represent cellulitis. IMPRESSION: Mild ascites. Fatty liver. Moderate fecal loading in the colon. No bowel dilatation or obstruction. Electronically signed by: Enriqueta Taylor On 05/23/2019 01:23:46 AM
[2019-05-23] MEDS ORDERED: cefTRIAXone SOD 1 GM in D5W MINI-BAG PLUS 50 ML IV ONE (03:00)
[2019-05-23] MEDS ORDERED: MAALOX 30 ML SUSP *UDC PO PRN (03:30)
[2019-05-23] MEDS ORDERED: ACETAMINOPHEN TAB 650MG DOSE (2X325MG) PO PRN (03:30)
[2019-05-23] MEDS ORDERED: HumaLOG INSULIN (NovoLOG) PER UNIT SC SCH ×2 (03:45→21:00)
[2019-05-23] MEDS ORDERED: GLUCOSE 4 GM CHEW TABLET PO PRN (03:45)
[2019-05-23] MEDS ORDERED: DEXTROSE 50% 50 ML SYRINGE IV PRN (03:45)
[2019-05-23] MEDS ORDERED: GLUCAGON FOR INJ 1 MG VIAL (J1610) SC PRN (03:45)
--- NOTE | 2019-05-23 03:56 | HPEPDOC ---
General Date of Admission Date of Service: May 23, 2019 Chief Complaint The patient is a 69-year-old female admitted with a reason for visit of Abd Pain. Source: Patient, RN/MD Exam Limitations: Other (confusion) Timing/Duration: Day(s) Severity: Mild History of Present Illness Pt is sleepy, arousable; follows commands, but not answering any questions; asking to be left alone so she can rest. Info obtained from ED. Ms. Reyna is a 69 years old woman who was brought to ER for evaluation of confusion and generalized weakness. Vitals and labs are good in ER, except for Na of 133 and abnormal UA (+nitrate, 4 WBC, 3+ bacteria). Pt denied any pain, but did not provide any other information. CT abd/pelv: constipation. CT head: no acute findings CT chest: chronic ILD with fibrotic changes b/l Medical History RA + [id number] HYPERTENSION HYPERLIPIDEMA MIGRAINES CHRONIC HEADACHES ANALGESICS REBOUND FIBROMYALGIAS TYPE 2 DM-- DIETARY CONTROL VITAMIN D DEFICIENCY MILD HYPOTHYROIDISM-- ? CENTRAL TB CHILD---TOOK INH FOR 1-2 YEARS VITAMIN B12 DEFICIENCY NEUROPATHY FEET AND HANDS, POSITIVE NCS 12/31, 08/2010 (SEVERE SENSORY POLYNEUROPATHY); POLYRADICULOPATHY/PN LOWER EXT ON NCS AT [facility] – [place] 07/10 OSTEOARTHRITIS BACK PAIN RELATED TO DEGENERATIVE DISK DISEASE, EPIDURALS DEPRESSION INTERSTITIAL GRANULOMATOUS DERMATITIS (+ BX 11/08, 04/10) SAW DERM TEAM IN [facility] 10/12, FELT TO BE DUE TO LIPITOR, RESOLVED OFF STATINS NPSG WITHOUT SIGNS OF SHARON DDD/DJD C-SPINE MRI 2009 H3 INFLUENZA in 2017 Surgical History HYSTERECTOMY 1977 BSO 1979 CHOLECYSTECTOMY 1990 Family History FATHER: RHEUMATOID ARTHRITIS MOTHER: ALZHEIMER SIBLINGS: BRAIN CANCER, DIAGNOSED WITH CANCER SON(S): BRAIN CANCER, CANCER Social History * Smoker: non-smoker Alcohol: Denies Drugs: denies Home Medications Scheduled Amitriptyline HCl (Amitriptyline HCl) 75 Mg Tab, 75 MG PO QHS, (Reported) Calcium Citrate/Vitamin D3 (Calcium Cit-Vit D 250-200 Tab) 1 Each Tablet, 1 TAB PO DAILY, (Reported) NOON Carbamazepine (Carbamazepine ER) 400 Mg Tab, 400 MG PO BID, (Reported) Cholecalciferol (Vitamin D3) (Vitamin D3) 5,000 Unit Capsule, 5,000 UNIT PO ASDIRECTED, (Reported) EVERY 5 DAYS AT DINNERTIME Clonazepam (Clonazepam) 0.5 Mg Tablet, 0.25 MG PO QHS, (Reported) Cyanocobalamin (Cyanocobalamin Injection) 1,000 Mcg/1 Ml Inj, 1,000 MCG IM QMONTH, (Reported) TAKES 1ST WEEK OF THE MONTH Duloxetine Hcl (Duloxetine HCl) 60 Mg Cap, 60 MG PO BID, (Reported) Ezetimibe (Zetia) 10 Mg Tab, 10 MG PO DAILY, (Reported) TAKES AT NOON Folic Acid (Folic Acid) 1 Mg Tab, 1 MG PO BID, (Reported) Gemfibrozil (Gemfibrozil) 600 Mg Tab, 600 MG PO BID, (Reported) Hydroxychloroquine Sulfate (Hydroxychloroquine Sulfate) 200 Mg Tab, 200 MG PO BID, (Reported) Levothyroxine Sodium (Synthroid) 150 Mcg Tab, 150 MCG PO DAILY, (Reported) Meloxicam (Meloxicam) 15 Mg Tab, 15 MG PO DAILY, (Reported) Multivitamin (Multivitamins) 1 Each Tablet, 1 TAB PO DAILY, (Reported) NOON Pregabalin (Lyrica) 300 Mg Cap, 300 MG PO BID, (Reported) Propranolol HCl (Propranolol HCl ER) 120 Mg Cap, 120 MG PO QHS, (Reported) Sulfasalazine (Sulfasalazine) 500 Mg Tab, 1,000 MG PO BID, (Reported) Vit A/Vit C/Vit E/Zinc/Copper (Preservision Areds Tablet) 1 Each Tablet, 1 TAB PO BID, (Reported) LUNCH AND DINNER Scheduled PRN Hydrocodone/Acetaminophen (Hydrocodone-Acetamin 5-325 mg) 1 Each Tablet, 1 TAB PO Q4H PRN for PAIN, (Reported) MDD 4 Allergies Coded Allergies: Barbiturates (Verified Adverse Reaction, Intermediate, REBOUND HEADACHE, 02/23/19) butalbital (Verified Adverse Reaction, Intermediate, REBOUND HEADACHE, 02/23/19) caffeine (Verified Adverse Reaction, Intermediate, REBOUND HEADACHE, 02/23/19) theophylline (Verified Adverse Reaction, Intermediate, REBOUND HEADACHE- XANTHINE, 02/23/19) meperidine (Verified Adverse Reaction, Mild, HEADACHE, 02/23/19) A-FIB/CHADSVASC A-FIB History Current/History of A-Fib/PAF?: No Review of Systems Other systems Unable to obtain due to AMS Physical Examination General Exam: Positive: Other (sleeping, arousable, not in distress) Eye Exam: Positive: PERRLA, Conjunctiva & lids normal ENT Exam: Positive: Atraumatic, Other ENT (dry tongue) Neck Exam: Positive: Supple; Negative: JVD Chest Exam: Positive: Clear to auscultation, Normal air movement Heart Exam: Positive: Rate Normal, Normal S1, Normal S2 Abdomen Exam: Positive: Normal bowel sounds, Soft; Negative: Tenderness Extremity Exam: Positive: Edema (3+ edema of both legs), Normal pulses; Negative: Tenderness Skin Exam: Negative: Rash, Breakdown Neuro Exam: Positive: Normal Speech, Strength at 5/5 X4 ext, Normal Tone Psych Exam: Positive: Other (unable to evalaute orientation); Negative: Anxiety Vital Signs Vital Signs Date Time Temp Pulse Resp B/P (MAP) Pulse Ox O2 Delivery O2 Flow Rate FiO2 05/23/19 03:00 64 16 122/67 (85) 98 Room Air 05/22/19 21:54 97.9 1.0 Laboratory Data Labs 24H Laboratory Tests 2 05/22/19 22:35: Immature Granulocyte % (Auto) 0.3, White Blood Count 7.2, Red Blood Count 3.56L, Hemoglobin 11.7L, Hematocrit 37.1, Mean Corpuscular Volume 104.2H, Mean Cor puscular Hemoglobin 32.9, Mean Corpuscular Hemoglobin Concent 31.5L, Red Cell Distribution Width 13.4, Platelet Count 272, Neutrophils (%) (Auto) 72.3H, Lymphocytes (%) (Auto) 9.3L, Monocytes (%) (Auto) 11.9H, Eosinophils (%) (Auto) 5.8H, Basophils (%) (Auto) 0.4, Neutrophils # (Auto) 5.2, Lymphocytes # (Auto) 0.7L, Monocytes # (Auto) 0.9H, Eosinophils # (Auto) 0.4, Basophils # (Auto) 0.0, Nucleated Red Blood Cells % (auto) 0.0, Urine Color PAT, Urine Appearance HAZY, Urine pH 5.0, Urine Specific [place] 1.021, Urine Protein 2+H, Urine Glucose (UA) NEGATIVE, Urine Ketones NEGATIVE, Urine Blood NEGATIVE, Urine Nitrite POSITIVEH, Urine Bilirubin NEGATIVE, Urine Urobilinogen 0.2, Urine Leukocyte Esterase NEGATIVE, Urine WBC (Auto) 4H, Urine RBC (Auto) 1, Urine Hyaline Casts (Auto) 0, Urine Bacteria (Auto) 3+H, Urine Squamous Epithelial Cells 0, Urine Mucus (Auto) SMALL, Urine Sperm (Auto) , Anion Gap 3L, Glomerular Filtration Rate > 60.0, Osmolality 298, Lactic Acid Level 1.0, Calcium Level 8.8, Aspartate Amino Transf (AST/SGOT) 16, Alanine Aminotransferase (ALT/SGPT) 15, Alkaline Phosphatase 111, Total Bilirubin 0.4, Direct Bilirubin 0.2, Ammonia 37H, Total Creatine Kinase 37, Creatine Kinase MB < 1.0, Creatine Kinase MB Relative Index 2.70, Troponin I < 0.02, Total Protein 6.6, Albumin 3.2, Albumin/Globulin Ratio 0.94L, Thyroid Stimulating Hormone (TSH) 3.660, Urine Amphetamines Screen NEGATIVE, Urine Benzodiazepines Screen NEGATIVE, Urine Opiates Screen NEGATIVE, Urine Methadone Screen NEGATIVE, Urine Barbiturates Screen NEGATIVE, Urine Phencyclidine Screen NEGATIVE, Urine Cocaine Metabolite Screen NEGATIVE, Urine Cannabinoids Screen NEGATIVE, Ethyl Alcohol Level < 0.003 05/22/19 23:04: POC pH (Misc Panel) 7.342L, POC Base Excess (Misc Panel) 6.0H, POC Saturated Percent O2 (Misc) 92L, POC pO2 (Misc Panel) 69.0L, POC pCO2 (Misc Panel) 59.5H, POC HCO3 (Misc Panel) 32.2H, POC Total CO2 (Misc Panel) 34.0H 05/22/19 23:18: Bedside Glucose (Misc Panel) 90 05/22/19 23:32: POC Total CO2 (Misc Panel) 37.0H, POC Glucose (Misc Panel) 97, POC Sodium (Misc Panel) 131L, POC Potassium (Misc Panel) 4.7, POC Chloride (Misc Panel) 91L, POC Blood Urea Nitrogen (Misc Panel 9, POC Ionized Calcium (Misc Panel) 4.7, POC Creatinine (Misc Panel) 0.8, POC Hematocrit (Misc Panel) 37.0L CBC/BMP Laboratory Tests 05/22/19 22:35 Red Blood Count 3.56 L, Mean Corpuscular Volume 104.2 H, Mean Corpuscular H emoglobin 32.9, Mean Corpuscular Hemoglobin Concent 31.5 L, Red Cell Distribution Width 13.4, Neutrophils (%) (Auto) 72.3 H, Lymphocytes (%) (Auto) 9.3 L, Monocytes (%) (Auto) 11.9 H, Eosinophils (%) (Auto) 5.8 H, Basophils (%) (Auto) 0.4, Neutrophils # (Auto) 5.2, Lymphocytes # (Auto) 0.7 L, Monocytes # (Auto) 0.9 H, Eosinophils # (Auto) 0.4, Basophils # (Auto) 0.0 Microbiology Microbiology 05/23/19 Blood Culture, Received Pending 05/23/19 Blood Culture, Received Pending 05/22/19 Urine Culture, Received Pending Assessment/Plan AMS, Constipation, Chronic Hyponatremia, ?UTI - Keep in observation; supportive care - Normal sodium diet - Empirically start on oral Keflex; pt has received a dose of IV Rocephin in the ER. - Laxative for constipation - PT/OT - Recheck BMP Bilateral Leg Edema - unsure if it is new or chronic. - Echo from January: diastolic dysfunction grade II - may consider diuretic if pt's oral intake is good Continue home meds for chronic illness, except oral diabetic med which I would like hold until pt condition improves; SSI for now. Plan / VTE VTE Prophylaxis Ordered?: No VTE Exclusion Mechanical Proph: Low Risk for VTE VTE Exclusion Pharmacological: At Low Risk for VTE Plan Diet: Continue Current Activity: Continue Current Therapy: PT, OT Diagnostics: Repeat Labs in AM Anticipated Discharge: Home With Services Advanced Directives: MOLST Form is available EDWARDO AN MD May 23, 2019 03:56
[2019-05-23] MEDS ORDERED: PROP120C PO (03:59)
[2019-05-23] MEDS ORDERED: CARB400T4 PO (03:59)
[2019-05-23] MEDS ORDERED: PROAAER10 INH (04:06)
[2019-05-23] MEDS ORDERED: SUMA25TA3 PO (04:06)
[2019-05-23] MEDS ORDERED: VITMTA PO (04:07)
[2019-05-23 06:00] VITALS: BP 129/77
[2019-05-23] MEDS ORDERED: CICL0.7739 EXT (06:48)
[2019-05-23] MEDS ORDERED: ACET-897 PO ×2 (06:48)
[2019-05-23] MEDS ORDERED: ZEAS2POW4 TOP (06:48)
[2019-05-23] MEDS ORDERED: VITA200012 PO (06:48)
[2019-05-23] MEDS ORDERED: HYDR-3713 PO (06:49)
[2019-05-23] MEDS: HumaLOG INSULIN (NovoLOG) PER UNIT SC SCH ×3 (07:30→17:12)
--- NOTE | 2019-05-23 07:53 | REP ---
Portable chest, 10:38 p.m., single AP view with the patient upright: Comparisons are 02/24/2019, 02/23/2019 and 05/29/2017. There is chronic interstitial coarsening compatible with chronic lung disease. There are by small focal densities projected over the olivia bilaterally. There is chronic cardiomegaly. Mediastinum and skeletal structures are unremarkable. Electronically Signed by Link Baldwin MD 05/23/2019 07:44 A
[2019-05-23] MEDS ORDERED: LEVOTHYROXINE 150MCG TABLET (0.15MG) PO SCH (09:00)
[2019-05-23] MEDS: PREGABALIN 100 MG CAP (LYRICA) PO SCH ×2 (09:42→21:40)
[2019-05-23] MEDS: HYDROXYCHLOROQUINE 200 MG TAB PO SCH ×2 (09:42→21:41)
[2019-05-23] MEDS: DULoxetine 30 MG CAP (CYMBALTA) PO SCH ×2 (09:43→21:40)
[2019-05-23] MEDS: GEMFIBROZIL 600 MG TAB PO SCH ×2 (09:43→21:41)
[2019-05-23] MEDS: CEPHALEXIN 250 MG CAP PO SCH ×3 (09:43→21:41)
[2019-05-23] MEDS: carBAMazepine XR 200 MG TAB PO SCH ×2 (09:43→21:41)
[2019-05-23] MEDS: MELOXICAM (MOBIC) 7.5 MG TAB PO SCH (09:44)
[2019-05-23] MEDS: MOM 30ML SUSPENSION UDC PO SCH (09:44)
[2019-05-23 10:11] LABS: BLOOD UREA NITROGEN 7 MG/DL (7-18); CALCIUM LEVEL 8.8 MG/DL (8.8-10.2); CARBON DIOXIDE LEVEL 33 MEQ/L (21-32); CHLORIDE LEVEL 97 MEQ/L (98-107); CREATININE FOR GFR 0.53 MG/DL (0.55-1.30); GLOMERULAR FILTRATION RATE > 60.0 (>45); GLUCOSE, FASTING 84 MG/DL (70-100); POTASSIUM SERUM 4.5 MEQ/L (3.5-5.1); SODIUM LEVEL 135 MEQ/L (136-145)
--- NOTE | 2019-05-23 10:53 | IPNPDOC ---
Subjective Date Seen The patient was seen on 05/23/19. Subjective Chief Complaint/HPI Martha is awake nd alert, but unable to recall any events leading to her admission and vague responses to questions this morning Constitutional: Denies: Chills, Fever Pulmonary: Denies: Dyspnea, Cough Cardiovascular: Denies: Chest Pain, Palpitations Gastrointestinal: Denies: Nausea, Vomiting, Abdominal Pain, Diarrhea, Constipation Objective Physical Examination General Exam: Positive: Alert, No Acute Distress Eye Exam: Positive: PERRLA, Conjunctiva & lids normal ENT Exam: Positive: Atraumatic, Other ENT (dry tongue) Neck Exam: Positive: Supple; Negative: JVD Chest Exam: Positive: Normal air movement, Rales Heart Exam: Positive: Rate Normal, Normal S1, Normal S2 Abdomen Exam: Positive: Normal bowel sounds, Soft; Negative: Tenderness Extremity Exam: Positive: Edema (3+ edema of both legs), Normal pulses; Negative: Tenderness Skin Exam: Negative: Rash, Breakdown Neuro Exam: Positive: Normal Speech, Other (Moves BL arms and extension specialist 3/5 BL, Mooves both feet equallyand bends both legs at the knees) Psych Exam: Positive: Other; Negative: Mental status NL, Anxiety Assessment /Plan Problems (1) Altered mental status Status: Acute Response to Treatment: Improving Problem Text: Etiology uncertain Benzos and Opiods on hold currently (Normally take Clonazepam at bedtime and [place] prn) Treating probable UTI - see below (2) UTI (urinary tract infection) Status: Acute Problem Text: U/A highly suspiscious for UTI. U/C pending Cont Keflex and for now (3) Seizure disorder Status: Acute Response to Treatment: Stable Problem Text: Cont Lyrica and Carbamazepine - check levels. (4) Type 2 diabetes mellitus Status: Chronic Response to Treatment: Stable Plan/VTE VTE Prophylaxis Ordered?: No VTE Exclusion Mechanical Proph: Low Risk for VTE VTE Exclusion Pharmacological: At Low Risk for VTE Plan Diet: Continue Current Activity: Continue Current Therapy: PT, OT Diagnostics: Repeat Labs in AM Anticipated Discharge: Home With Services Disposition Patient is observation status VS, I&O, 24H, Fishbone Vital Signs/I&O Vital Signs Date Time Temp Pulse Resp B/P (MAP) Pulse Ox O2 Delivery O2 Flow Rate FiO2 05/23/19 06:00 98.1 77 18 129/77 (94) 97 05/23/19 03:45 Nasal Cannula 2.0 Laboratory Data 24H LABS Laboratory Tests 2 05/22/19 22:35: Immature Granulocyte % (Auto) 0.3, White Blood Count 7.2, Red Blood Count 3.56L, Hemoglobin 11.7L, Hematocrit 37.1, Mean Corpuscular Volume 104.2H, Mean Corpuscular Hemoglobin 32.9, Mean Corpuscular Hemoglobin Concent 31.5L, Red Cell Distribution Width 13.4, Platelet Count 272, Neutrophils (%) (Auto) 72.3H, Lymphocytes (%) (Auto) 9.3L, Monocytes (%) (Auto) 11.9H, Eosinophils (%) (Auto) 5.8H, Basophils (%) (Auto) 0.4, Neutrophils # (Auto) 5.2, Lymphocytes # (Auto) 0.7L, Monocytes # (Auto) 0.9H, Eosinophils # (Auto) 0.4, Basophils # (Auto) 0.0, Nucleated Red Blood Cells % (auto) 0.0, Urine Color PAT, Urine Appearance HAZY, Urine pH 5.0, Urine Specific [place] 1.021, Urine Protein 2+H, Urine Glucose (UA) NEGATIVE, Urine Ketones NEGATIVE, Urine Blood NEGATIVE, Urine Nitrite POSITIVEH, Urine Bilirubin NEGATIVE, Urine Urobilinogen 0.2, Urine Leukocyte Esterase NEGATIVE, Urine WBC (Auto) 4H, Urine RBC (Auto) 1, Urine Hyaline Casts (Auto) 0, Urine Bacteria (Auto) 3+H, Urine Squamous Epithelial Cells 0, Urine Mucus (Auto) SMALL, Urine Sperm (Auto) , Anion Gap 3L, Glomerular Filtration Rate > 60.0, Osmolality 298, Lactic Acid Level 1.0, Calcium Level 8.8, Aspartate Amino Transf (AST/SGOT) 16, Alanine Aminotransferase (ALT/SGPT) 15, Alkaline Phosphatase 111, Total Bilirubin 0.4, Direct Bilirubin 0.2, Ammonia 37H, Total Creatine Kinase 37, Creatine Kinase MB < 1.0, Creatine Kinase MB Relative Index 2.70, Troponin I < 0.02, Total Protein 6.6, Albumin 3.2, Albumin/Globulin Ratio 0.94L, Thyroid Stimulating Hormone (TSH) 3.660, Urine Amphetamines Screen NEGATIVE, Urine Benzodiazepines Screen NEGATIVE, Urine Opiates Screen NEGATIVE, Urine Methadone Screen NEGATIVE, Urine Barbiturates Screen NEGATIVE, Urine Phencyclidine Screen NEGATIVE, Urine Cocaine Metabolite Screen NEGATIVE, Urine Cannabinoids Screen NEGATIVE, Ethyl Alcohol Level < 0.003 05/22/19 23:04: POC pH (Misc Panel) 7.342L, POC Base Excess (Misc Panel) 6.0H, POC Saturated Percent O2 (Misc) 92L, POC pO2 (Misc Panel) 69.0L, POC pCO2 (Misc Panel) 59.5H, POC HCO3 (Misc Panel) 32.2H, POC Total CO2 (Misc Panel) 34.0H 05/22/19 23:18: Bedside Glucose (Misc Panel) 90 05/22/19 23:32: POC Total CO2 (Misc Panel) 37.0H, POC Glucose (Misc Panel) 97, POC Sodium (Misc Panel) 131L, POC Potassium (Misc Panel) 4.7, POC Chloride (Misc Panel) 91L, POC Blood Urea Nitrogen (Misc Panel 9, POC Ionized Calcium (Misc Panel) 4.7, POC Creatinine (Misc Panel) 0.8, POC Hematocrit (Misc Panel) 37.0L 05/23/19 07:59: Bedside Glucose (Misc Panel) 76L 05/23/19 09:25: Anion Gap 5L, Glomerular Filtration Rate > 60.0, Blood Urea Nitrogen 7, Creatinine 0.53L, Sodium Level 135L, Potassium Level 4.5, Chloride Level 97L, Carbon Dioxide Level 33H, Calcium Level 8.8 CBC/BMP Laboratory Tests 05/22/19 22:35 Red Blood Count 3.56 L, Mean Corpuscular Volume 104.2 H, Mean Corpuscular Hemoglobin 32.9, Mean Corpuscular Hemoglobin Concent 31.5 L, Red Cell Distribution Width 13.4, Neutrophils (%) (Auto) 72.3 H, Lymphocytes (%) (Auto) 9.3 L, Monocytes (%) (Auto) 11.9 H, Eosinophils (%) (Auto) 5.8 H, Basophils (%) (Auto) 0.4, Neutrophils # (Auto) 5.2, Lymphocytes # (Auto) 0.7 L, Monocytes # (Auto) 0.9 H, Eosinophils # (Auto) 0.4, Basophils # (Auto) 0.0 05/23/19 09:25 Calcium Level 8.8 Microbiology Microbiology 05/23/19 Blood Culture, Received Pending 05/23/19 Blood Culture, Received Pending 05/23/19 Respiratory Virus Panel (PCR) ([facility]) - Final, Complete 05/22/19 Urine Culture, Received Pending YONATHAN MOON PA-C May 23, 2019 10:53
[2019-05-23] MEDS: LACTULOSE 20 GM/30 ML SYRUP UD PO SCH ×2 (13:58→21:40)
[2019-05-23 14:00] VITALS: BP 132/78
--- NOTE | 2019-05-23 17:38 | ECGEPIP ---
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
[2019-05-23] MEDS: AMITRIPTYLINE 25 MG TAB PO SCH (21:41)
[2019-05-23] MEDS: PROPRANOLOL 60 MG LA CAP PO SCH (21:42)
[2019-05-23 22:00] VITALS: BP 127/57
[2019-05-24] MEDS: LEVOTHYROXINE 150MCG TABLET (0.15MG) PO SCH (05:58)
[2019-05-24 06:00] VITALS: BP 122/64
[2019-05-24 06:24] LABS: HEMOGLOBIN 11.6 g/dl (12.0-15.5); MEAN CORPUSCULAR HEMOGLOBIN 33.2 pg (27.0-33.0); MEAN CORPUSCULAR HGB CONC 30.5 g/dl (32.0-36.5); MEAN CORPUSCULAR VOLUME 108.9 fl (80.0-96.0); PLATELET COUNT, AUTOMATED 262 10^3/uL (150-450); RED BLOOD COUNT 3.49 10^6/uL (4.00-5.40); WHITE BLOOD COUNT 9.4 10^3/uL (4.0-10.0)
[2019-05-24 07:08] LABS: ALBUMIN 2.9 GM/DL (3.2-5.2); ALT/SGPT 15 U/L (12-78); BILIRUBIN,TOTAL 0.4 MG/DL (0.2-1.0); BLOOD UREA NITROGEN 9 MG/DL (7-18); CALCIUM LEVEL 8.7 MG/DL (8.8-10.2); CARBON DIOXIDE LEVEL 32 MEQ/L (21-32); CHLORIDE LEVEL 97 MEQ/L (98-107); CREATININE FOR GFR 0.61 MG/DL (0.55-1.30); GLOMERULAR FILTRATION RATE > 60.0 (>45); GLUCOSE, FASTING 97 MG/DL (70-100); POTASSIUM SERUM 4.4 MEQ/L (3.5-5.1); SODIUM LEVEL 134 MEQ/L (136-145); TOTAL PROTEIN 6.4 GM/DL (6.4-8.2)
[2019-05-24] MEDS: HumaLOG INSULIN (NovoLOG) PER UNIT SC SCH ×2 (07:30→11:42)
[2019-05-24] MEDS: LACTULOSE 20 GM/30 ML SYRUP UD PO SCH ×2 (08:19→22:36)
[2019-05-24] MEDS: MOM 30ML SUSPENSION UDC PO SCH (08:19)
[2019-05-24] MEDS: PREGABALIN 100 MG CAP (LYRICA) PO SCH ×2 (08:19→22:37)
[2019-05-24] MEDS: HYDROXYCHLOROQUINE 200 MG TAB PO SCH ×2 (08:19→21:00)
[2019-05-24] MEDS: MELOXICAM (MOBIC) 7.5 MG TAB PO SCH (08:20)
[2019-05-24] MEDS: GEMFIBROZIL 600 MG TAB PO SCH ×2 (08:20→22:39)
[2019-05-24] MEDS: carBAMazepine XR 200 MG TAB PO SCH ×2 (08:20→22:41)
[2019-05-24] MEDS: DULoxetine 30 MG CAP (CYMBALTA) PO SCH ×2 (08:20→22:39)
[2019-05-24] MEDS: CEPHALEXIN 250 MG CAP PO SCH ×3 (08:20→22:36)
--- NOTE | 2019-05-24 09:00 | IPNPDOC ---
Subjective Date Seen The patient was seen on 05/24/19. Subjective Chief Complaint/HPI Had some trouble swallowing her Levothyroxine this am. Otherwise no complaints Constitutional: Denies: Chills, Fever Pulmonary: Denies: Dyspnea, Cough Cardiovascular: Denies: Chest Pain, Palpitations Gastrointestinal: Denies: Nausea, Vomiting, Abdominal Pain, Diarrhea, Constipation Objective Physical Examination General Exam: Positive: Alert (Sleepy), No Acute Distress Eye Exam: Positive: PERRLA, Conjunctiva & lids normal ENT Exam: Positive: Atraumatic, Other ENT (dry tongue) Neck Exam: Positive: Supple; Negative: JVD Chest Exam: Positive: Normal air movement, Rales Heart Exam: Positive: Rate Normal, Normal S1, Normal S2 Abdomen Exam: Positive: Normal bowel sounds, Soft; Negative: Tenderness Extremity Exam: Positive: Edema (1+ edema BL with TEDS on BL) Neuro Exam: Positive: Normal Speech (Slow to mentate), Other (Moves BL arms and emanations analysis technician 3/5 BL, Mooves both feet equallyand bends both legs at the knees) Psych Exam: Positive: Other; Negative: Mental status NL, Anxiety Assessment /Plan Problems (1) Cirrhosis of liver Status: Chronic Problem Text: Ammonia level elevated on admission with mild Ascites on CT abd. Wkup pending Has fatty liver on CT as well (2) Altered mental status Status: Acute Response to Treatment: Improving Problem Text: Etiology uncertain - Patient has not been prescribed Klonopin or Narcotics in several months and Urine drug screen negative for either of these, so excessive narcotics/Benzos not likley cause -She has SHARON on CPAP and states she uses her CPAP regularly - ABG in ER showed slight CO2 retention. Has borderline hypoxemia and significant LE edmea BL with CT showing possible pulm edema - Give singel dose IV Lasix -Treating probable UTI - see below -Ammonia level elevated on admission - Lactulose ordered - No BMs documented yet - repeat level today (3) UTI (urinary tract infection) Status: Acute Problem Text: U/A highly suspiscious for UTI. U/C pending Cont Keflex and for now (4) Seizure disorder Status: Acute Response to Treatment: Stable Problem Text: Cont Lyrica and Carbamazepine (5) Type 2 diabetes mellitus Status: Chronic Response to Treatment: Stable (6) SHARON on CPAP (7) Hypothyroid Status: Chronic Plan/VTE VTE Prophylaxis Ordered?: No VTE Exclusion Mechanical Proph: Low Risk for VTE VTE Exclusion Pharmacological: At Low Risk for VTE Plan Diet: Continue Current Activity: Continue Current Therapy: PT, OT Diagnostics: Repeat Labs in AM Anticipated Discharge: Home With Services VS, I&O, 24H, [facility] Vital Signs/I&O Vital Signs Date Time Temp Pulse Resp B/P (MAP) Pulse Ox O2 Delivery O2 Flow Rate FiO2 05/24/19 06:00 97.7 64 17 122/64 (83) 89 05/23/19 22:00 3.0 05/23/19 03:45 Nasal Cannula I&O- Last 24 Hours up to 6 AM 05/24/19 06:00 Intake Total 520 ml Output Total 0 ml Balance 520 ml Laboratory Data 24H LABS Laboratory Tests 2 05/23/19 09:25: Anion Gap 5L, Glomerular Filtration Rate > 60.0, Blood Urea Nitrogen 7, Creatinine 0.53L, Sodium Level 135L, Potassium Level 4.5, Chloride Level 97L, Carbon Dioxide Level 33H, Calcium Level 8.8, Carbamazepine (Tegretol) Level 9.0 05/23/19 11:15: Bedside Glucose (Misc Panel) 82 05/23/19 13:58: 05/23/19 16:30: Bedside Glucose (Misc Panel) 98 05/24/19 05:31: Nucleated Red Blood Cells % (auto) 0.0, Anion Gap 5L, Glomerular Filtration Rate > 60.0, Blood Urea Nitrogen 9, Creatinine 0.61, Sodium Level 134L, Potassium Level 4.4, Chloride Level 97L, Carbon Dioxide Level 32, Calcium Level 8.7L, A spartate Amino Transf (AST/SGOT) 19, Alanine Aminotransferase (ALT/SGPT) 15, Alkaline Phosphatase 105, Total Bilirubin 0.4, Total Protein 6.4, Albumin 2.9L, Albumin/Globulin Ratio 0.83L CBC/BMP Laboratory Tests 05/23/19 09:25 Calcium Level 8.8 05/24/19 05:31 Calcium Level 8.7 L, Red Blood Count 3.49 L, Mean Corpuscular Volume 108.9 H, Mean Corpuscular Hemoglobin 33.2 H, Mean Corpuscular Hemoglobin Concent 30.5 L, Red Cell Distribution Width 13.4, Aspartate Amino Transf (AST/SGOT) 19, Alanine Aminotransferase (ALT/SGPT) 15, Alkaline Phosphatase 105, Total Bilirubin 0.4, Total Protein 6.4, Albumin 2.9 L Microbiology Microbiology 05/23/19 Blood Culture - Preliminary, Resulted No growth after 24 hours . All specim... 05/23/19 Blood Culture - Preliminary, Resulted No growth after 24 hours . All specim... 05/23/19 Respiratory Virus Panel (PCR) ([facility]) - Final, Complete 05/22/19 Urine Culture, Received Pending YONATHAN MOON PA-C May 24, 2019 09:00
[2019-05-24] MEDS ORDERED: FUROSEMIDE 40 MG/4 ML VIAL (J1940) IV ONE (09:15)
[2019-05-24 12:19] LABS: HEPATITIS A ANTIBODY IGM NEGATIVE (NEGATIVE); HEPATITIS B CORE ANTIBODY IGM NEGATIVE (NEGATIVE); HEPATITIS B SURFACE ANTIGEN NEGATIVE (NEGATIVE); HEPATITIS C VIRUS ABY INDEX 0.1 INDEX (<0.8)
[2019-05-24 14:00] VITALS: BP 136/89
--- NOTE | 2019-05-24 16:33 | REP ---
LIMITED ABDOMINAL ULTRASOUND: Limited abdominal ultrasound performed to evaluate for ascites. Only minimal free fluid is seen in the right flank region. Paracentesis cannot be safely performed. Electronically Signed by Link Sheets MD 05/25/2019 09:01 A
[2019-05-24] MEDS ORDERED: PROHANCE 279.3MG/ML 15ML VIAL (A9576) As Ordered ONE (21:08)
[2019-05-24] MEDS ORDERED: PROHANCE 279.3MG/ML 5ML VIAL (A9576) As Ordered ONE (21:08)
[2019-05-24 22:00] VITALS: BP 138/88
[2019-05-24] MEDS: AMITRIPTYLINE 25 MG TAB PO SCH (22:35)
[2019-05-24] MEDS: PROPRANOLOL 60 MG LA CAP PO SCH (22:42)
--- NOTE | 2019-05-24 23:03 | REPVR ---
PROCEDURE INFORMATION: Exam: MR Head Without and With Contrast Exam date and time: 05/24/2019 9:36 PM Clinical history: 69 years old, female; Altered mental status/memory loss; Other: ? Encepholopathy; Patient HX: Very altered, best exam possible towards the end of the exam; Additional info: AMS TECHNIQUE: Imaging protocol: MR of the head without and with intravenous contrast. Contrast material: PROHANCE; Contrast volume: 20 ml; Contrast route: IV; COMPARISON: CT Head without contrast 05/22/2019 10:31 PM FINDINGS: Limited study secondary to motion artifact. Brain: Trace bilateral symmetrical increased flair signal abnormality in the posterior parieto-occipital lobes which could be secondary to motion artifact versus trace bilateral subdural hemorrhages, followup after sedation is recommended. Mild periventricular, subcortical, deep white matter small vessel ischemic changes. Bilateral symmetrical mild increased flair signal abnormality in the insula prothesis No evidence of restricted diffusion to suggest an acute infarct. Ventricles: The ventricles and sulci are enlarged representing mild to moderate volume loss. Bones/joints: Unremarkable. Soft tissues: Unremarkable. Sinuses: Normal as visualized. No acute sinusitis. Mastoid air cells: Normal as visualized. No mastoid effusion. Orbits: Unremarkable. IMPRESSION: Limited study secondary to motion artifact. Trace bilateral symmetrical increased flair signal abnormality in the posterior parieto-occipital lobes which could be secondary to motion artifact versus trace bilateral subdural hemorrhages, followup after sedation is recommended. No evidence of acute infarct. Electronically signed by: Enriqueta Taylor On 05/24/2019 23:02:51 PM
[2019-05-25] VITALS (14 sets, daily range): BP systolic 109–175; BP diastolic 62–96
[2019-05-25 00:07] LABS: ANA (HEP2) Negative (.); ANTI-MITOCHONDRIAL ANTIBODY <20.0 Units (0.0-20.0)
[2019-05-25 06:00] LABS: HEMATOCRIT 37.5 % (36.0-47.0); HEMOGLOBIN 11.3 g/dl (12.0-15.5); MEAN CORPUSCULAR HEMOGLOBIN 32.9 pg (27.0-33.0); MEAN CORPUSCULAR HGB CONC 30.1 g/dl (32.0-36.5); MEAN CORPUSCULAR VOLUME 109.3 fl (80.0-96.0); PLATELET COUNT, AUTOMATED 231 10^3/uL (150-450); RED BLOOD COUNT 3.43 10^6/uL (4.00-5.40); WHITE BLOOD COUNT 10.3 10^3/uL (4.0-10.0)
[2019-05-25] MEDS: LEVOTHYROXINE 150MCG TABLET (0.15MG) PO SCH (06:00)
[2019-05-25 06:33] LABS: ALT/SGPT 18 U/L (12-78); BILIRUBIN,TOTAL 0.5 MG/DL (0.2-1.0); BLOOD UREA NITROGEN 12 MG/DL (7-18); CALCIUM LEVEL 8.6 MG/DL (8.8-10.2); CARBON DIOXIDE LEVEL 38 MEQ/L (21-32); CHLORIDE LEVEL 99 MEQ/L (98-107); CREATININE FOR GFR 0.61 MG/DL (0.55-1.30); GLOMERULAR FILTRATION RATE > 60.0 (>45); GLUCOSE, FASTING 93 MG/DL (70-100); POTASSIUM SERUM 3.9 MEQ/L (3.5-5.1); SODIUM LEVEL 140 MEQ/L (136-145); TOTAL PROTEIN 6.7 GM/DL (6.4-8.2)
[2019-05-25] MEDS: HYDROXYCHLOROQUINE 200 MG TAB PO SCH (09:00)
[2019-05-25] MEDS: LACTULOSE 20 GM/30 ML SYRUP UD PO SCH ×3 (09:21→20:49)
[2019-05-25] MEDS: MOM 30ML SUSPENSION UDC PO SCH (09:21)
[2019-05-25] MEDS: MELOXICAM (MOBIC) 7.5 MG TAB PO SCH (09:21)
[2019-05-25] MEDS: PREGABALIN 100 MG CAP (LYRICA) PO SCH (09:22)
[2019-05-25] MEDS: CEPHALEXIN 250 MG CAP PO SCH (09:22)
[2019-05-25] MEDS: carBAMazepine XR 200 MG TAB PO SCH (09:22)
[2019-05-25] MEDS: GEMFIBROZIL 600 MG TAB PO SCH (09:22)
[2019-05-25] MEDS: DULoxetine 30 MG CAP (CYMBALTA) PO SCH (09:23)
[2019-05-25 10:57] LABS: ABG BASE EXCESS 8.3 (-2.0-2.0); ABG HCO3 36.9 MEQ/L (22.0-26.0); ABG O2 SATURATION 96.4 % (95.0-99.0); ABG PARTIAL PRESSURE O2 93.4 mmHg (75.0-100.0); ABG STANDARD HCO3 32.1 MEQ/L (22.0-26.0); ABG TOTAL CO2 39.1 MEQ/L (23.0-31.0); ABG pH (ARTERIAL) 7.322 UNITS (7.350-7.450)
[2019-05-25 11:00] LABS: ABG PARTIAL PRESSURE CO2 72.9 mmHg (35.0-45.0)
[2019-05-25] MEDS ORDERED: LACTULOSE 20 GM/30 ML SYRUP UD PR SCH (11:00)
--- NOTE | 2019-05-25 11:28 | IPNPDOC ---
Subjective Date Seen The patient was seen on 05/25/19. Subjective Chief Complaint/HPI Patient was gagging/choking on her pills this morning and developed hypoxemia and cyanosis of both feet with decreased capillary refill, but pulses found on doppler BL. BP normal. Mental status remains altered with decreased mentation, drowsiness and slow mentation. Oxygen was increased to 2 liters, but became increasingly sleepy but arousable. ABG performed showing PCO2 72. Case discussed with Dr. Burnham - plan to transfer to ICU for BIPAP. Oxygen decreased to 1L NC until transfer. Constitutional: Denies: Chills, Fever Pulmonary: Reports: Dyspnea, Cough Cardiovascular: Denies: Chest Pain, Palpitations Gastrointestinal: Denies: Nausea, Vomiting, Abdominal Pain, Diarrhea, Constipation Objective Physical Examination General Exam: Positive: No Acute Distress; Negative: Alert (see above) Eye Exam: Positive: PERRLA, Conjunctiva & lids normal Neck Exam: Positive: Supple; Negative: JVD Chest Exam: Positive: Normal air movement, Other (rattling referred upper airway sounds) Heart Exam: Positive: Rate Normal, Normal S1, Normal S2 Abdomen Exam: Positive: Normal bowel sounds, Soft; Negative: Tenderness Extremity Exam: Positive: Edema (trace - ), Other (Cyanotic toes with slow cap refill - pulses found with doppler BL.) Neuro Exam: Positive: Normal Speech (Slow to mentate), Other (Moves BL arms and disease education specialist 3/5 BL, Mooves both feet equallyand bends both legs at the knees) Psych Exam: Positive: Other; Negative: Mental status NL, Anxiety Assessment /Plan Problems (1) Altered mental status Status: Acute Response to Treatment: Improving Problem Text: -secondary to Metablic encephalopathy likely hepatic - Treat with Lactulose as above EEG pending as well MRI with ? subdural hemorrhages, but significant motion artifact. CT head on admission wihtot bleed Repeat CT (Unable to get MRI under sedation do to resp failure) Patient has not been prescribed Klonopin or Narcotics in several months and [facility] [place] drug screen negative for either of these, so excessive narcotics/Benzos not likley cause -She has SHARON on CPAP and states she uses her CPAP regularly - ABG in ER showed slight CO2 retention. -Treating UTI - - (2) Metabolic encephalopathy Problem Text: see above (3) Liver failure Status: Acute Problem Text: Ammonia level rising - no results from Lactulose po. Change to Lactulose enema Has some Ascites, but per abd Us not enough for peracentesis Etiology of Liver Failure uncertain - Has hepatic fatty liver, other wkup unrevealing so far Current UTI likely exacerbated her encephalopathy (4) Acute and chronic respiratory failure with hypercapnia Status: Acute Problem Text: Acute worsening of resp status See ABG showing acute on chronic resp failure - Transfer to ICU for BIPAP. will need CXR (Patient normally on CPAP for known SHARON, morbidly obese with likely chronic resp failure) (5) Type 2 diabetes mellitus Status: Chronic Response to Treatment: Stable Problem Text: Blood sugar only 74 this am without any insulin given during admission. Start IVF with D5 (6) UTI (urinary tract infection) Status: Acute Problem Text: U/C grew Citrobacter resitent to Keflex - change to IV Rocephin (7) Seizure disorder Status: Acute Response to Treatment: Stable Problem Text: Cont Lyrica and Carbamazepine (8) SHARON on CPAP (9) Hypothyroid Status: Chronic Plan/VTE VTE Prophylaxis Ordered?: No VTE Exclusion Mechanical Proph: Other VTE Exclusion Pharmacological: At Low Risk for VTE Plan Diet: Continue Current Activity: Continue Current Therapy: PT, OT Diagnostics: Repeat Labs in AM Anticipated Discharge: Home With Services VS, I&O, 24H, [facility] Vital Signs/I&O Vital Signs Date Time Temp Pulse Resp B/P (MAP) Pulse Ox O2 Delivery O2 Flow Rate FiO2 05/25/19 06:00 97.7 63 18 114/62 (79) 98 1.0 05/23/19 03:45 Nasal Cannula I&O- Last 24 Hours up to 6 AM 05/25/19 05:59 Intake Total 700 ml Output Total 150 ml Balance 550 ml Laboratory Data 24H LABS Laboratory Tests 2 05/24/19 11:19: Bedside Glucose (Misc Panel) 95 05/24/19 17:18: Bedside Glucose (Misc Panel) 91 05/25/19 05:51: Nucleated Red Blood Cells % (auto) 0.0, Anion Gap 3L, Glomerular Filtration Rate > 60.0, Blood Urea Nitrogen 12, Creatinine 0.61, Sodium Level 140, Potassium Level 3.9, Chloride Level 99, Carbon Dioxide Level 38H, Calcium Level 8.6L, Aspartate Amino Transf (AST/SGOT) 20, Alanine Aminotransferase (ALT/SGPT) 18, Alkaline Phosphatase 107, Total Bilirubin 0.5, Total Protein 6.7, Albumin 3.0L, Albumin/Globulin Ratio 0.81L 05/25/19 06:45: Bedside Glucose (Misc Panel) 74L 05/25/19 10:42: Blood Gas Bicarbonate Standard 32.1H, Arterial Blood pH 7.322L, Arterial Blood Partial Pressure CO2 72.9*H, Arterial Blood Partial Pressure O2 93.4, Arterial Blood Total CO2 39.1H, Arterial Blood HCO3 36.9H, Arterial Blood Base Excess 8.3H, Arterial Blood Oxygen Saturation 96.4 CBC/BMP Laboratory Tests 05/25/19 05:51 Red Blood Count 3.43 L, Mean Corpuscular Volume 109.3 H, Mean Corpuscular Hemoglobin 32.9, Mean Corpuscular Hemoglobin Concent 30.1 L, Red Cell Distribution Width 13.5, Calcium Level 8.6 L, Aspartate Amino Transf (AST/SGOT) 20, Alanine Aminotransferase (ALT/SGPT) 18, Alkaline Phosphatase 107, Total Bilirubin 0.5, Total Protein 6.7, Albumin 3.0 L Microbiology Microbiology 05/23/19 Blood Culture - Preliminary, Resulted No Growth after 48 hours. All Specime... 05/23/19 Blood Culture - Preliminary, Resulted No Growth after 48 hours. All Specime... 05/23/19 Respiratory Virus Panel (PCR) ([facility]) - Final, Complete 05/22/19 Urine Culture - Final, Complete Citrobacter Freundii YONATHAN MOON PA-C May 25, 2019 11:28
--- NOTE | 2019-05-25 11:52 | IPN ---
DATE: 05/25/2019 This note supplements the notes of 05/24/2019 and 05/24/2019 by ANNE Herr. I have seen the patient daily. I have been communicating with her in person on both yesterday and today. Yesterday when I saw Martha, she was less arousable than the last time I saw her. She had asterixis concerned about spontaneous bacterial peritonitis or possibility of stroke. I have ordered paracentesis, which unfortunately could not be done due to insufficient ascites fluid. She underwent an MRI of the brain which is limited by artifact. Today, her mental status was declined further. She looks cephalopathic. I cannot test her for asterixis as she does not cooperative, which she was able to do yesterday. Urine culture was returned showing Citrobacter resistant only to the cephalexin that she is currently taking. The patient is being transferred to intensive care unit. I began Rocephin 2 grams IV daily for the urinary infection as well as the possibility of spontaneous bacterial peritonitis. She looks volume overloaded. We are initiating diuresis. CT of the brain is being done to look for the possibility of hematoma. She has had falls with head injury prior to admission. Neurology has been consulted. We are repeating a Tegretol level. It was high end of therapeutic range on admission and I think this bears repeating.
[2019-05-25] MEDS: FUROSEMIDE 40 MG/4 ML VIAL (J1940) IV SCH ×2 (11:53→20:49)
[2019-05-25 12:30] LABS: INR 1.23; PARTIAL THROMBOPLASTIN TIME 23.1 SECONDS (25.0-38.4); PROTHROMBIN TIME 15.3 SECONDS (11.8-14.0)
--- NOTE | 2019-05-25 13:04 | CR ---
DATE: 05/25/2019 The pulmonary critical care team was asked by the medicine team to see Ms. Martha Reyna who is being followed for altered mental status. She was transferred to the intensive care unit (ICU) after having increasing altered mental status. According to the primary team, the patient has been having decreasing mentation along with increasing drowsiness. She had been getting supplemental oxygen. Patient has been in the process of being worked up for the altered mental status and did have an MRI of the brain done last night, which appeared to show some artifact. She is also being treated for hepatic issues after an elevated ammonia level. There was some concern about spontaneous bacterial peritonitis (SBP), and a paracentesis had been ordered but was not conducted due to not enough ascites fluid. The patient is being treated for seizure disorder with Tegretol and Lyrica. Because of her altered mental status, she was transferred to the ICU and pulmonary critical care team were consulted. Upon arrival to the ICU, patient is nonverbal. She is lethargic and unable to answer any questions. PHYSICAL EXAMINATION: VITALS: Temperature 97.7, pulse 63, respiratory rate 18, blood pressure is 114/62, pulse oximetry 98% on 1 liter. GENERAL: Patient is awake but unable to respond appropriately or answer questions. HEENT: Head is normocephalic, atraumatic. Pupils are dilated but reactive. Sclerae nonicteric. Moist mucous membranes. Tongue is midline. NECK: Neck is supple. No cervical lymphadenopathy. No jugular venous distention (JVD). Trachea is midline. PULMONARY: Clear to auscultation bilaterally. No wheezes, rales, rhonchi, or crackles. Patient is exhibiting Deo-Galdamez respirations. HEART: Regular rate and rhythm. S1, S2. No murmurs. ABDOMEN: Positive bowel sounds. Soft, nontender, obese. No obvious hepatosplenomegaly, but body habitus makes it difficult to determine. EXTREMITIES: Patient does have 1+ lower extremity edema bilaterally. SKIN: Skin is warm and dry. LABS: WBC 10.3, hemoglobin 11.3, hematocrit 37.5, platelets 231. Sodium 140, potassium 3.9, chloride 99, carbon dioxide 38, BUN 12, creatinine 0.61, glucose 93, calcium 8.6, total bilirubin 0.5, AST 20, ALT 18, alkaline phosphatase 107, total protein 6.7, albumin 3.0. Albumin from 05/24/2019 was 92. ABG pH 7.322, pCO2 of 72.9, pO2 of 93.4. Blood cultures show no growth after 40 hours times two. Respiratory virus panel was negative. Urine culture from 05/22/2019 was positive for Citrobacter freundii. Patient had been on Keflex but was changed to ceftriaxone today. Chest CT angiogram from 05/23/[address] Burnham and myself and does show cardiomegaly along with increased vascular markings, consistent with pulmonary edema. EKG was performed and showed normal sinus rhythm. MRI of the brain done on 05/24/2019 showed some artifact but overall no acute findings. Abdominal ultrasound showed only minimal free fluid in the right flank region, and it was determined that paracentesis could not be safely performed. ASSESSMENT/PLAN: 1. Altered mental status. Suspect toxic metabolic encephalopathy, possibly due to medications. Patient had been on Tegretol, which could cause hyperammonemia. Therefore, the Tegretol will be discontinued. Also, we will discontinue other possible medications that could contribute to the toxic metabolic encephalopathy, including Lyrica and amitriptyline. As noted above, the MRI of the brain did not show much. Will consider re-imaging once the patient is stable. There was no significant ascites on imaging studies. So, therefore, SBP is unlikely. Patient does not appear to be in fulminant liver failure. As noted, the hyperammonemia may be related to the Tegretol. Will continue to follow. 2. Respiratory failure. Patient is having Deo-Galdamez respirations, which is likely indicative of heart failure. Additionally, chest CT was suggestive of heart failure, too, and the patient did have elevated BNP in the past. Orders for a current BNP are ordered. Plan will be to repeat an arterial blood gas (ABG) in an hour. Patient has been started on CPAP. We will attempt CPAP but consider BiPAP if needed. 3. Pulmonary edema. As noted above under respiratory failure, suspect heart failure. Will continue to attempt diuresis. Patient has some probable underlying pulmonary hypertension. Plan will be to obtain a new echocardiogram. 4. Obstructive sleep apnea. Possible chronic hypoventilation syndrome as well. As noted, the patient has been restarted on CPAP. ADDENDUM: Martha was admitted with altered mental status. History and physical on admission was minimal and, therefore, did not provide much information. Since that time, the patient has been attempting diuresis, I feel appropriately so. She has continued altered mental status found to be more hyperammonemic than on prior blood draws. She has a slight increase in her CO2 compared to baseline with an arterial blood gas of 7.32, pCO2 of 72. Because of her concern for respiratory status, she was appropriately transferred to the intensive care unit by her primary team and I was consulted. Critical care time was 1 hour; this excludes all procedures. As based on the information above as Jameel Petersen has outlined, I believe the patient has toxic metabolic encephalopathy likely from hyperammonemia, possibly contributed by Tegretol in the face of a passive hepatic congested liver. She at least has significant pulmonary hypertension. Her right atrium is very enlarged on her chest imaging. Chest imaging consistent with pulmonary edema with increased vascular congestion. However, the patient is morbidly obese and does not have good chest expansion on her chest CT. There is no evidence of pulmonary embolism. On examining the patient, she clearly has Deo-Galdamez respirations. MRI was performed of the brain yesterday, which I personally reviewed and did not see any active hemorrhage; however, there was concern whether some of the motion artifact could be early bilateral subdurals. At this point in time, the patient is not in a respiratory state where she can be transferred to have further imaging. She has no focal weakness. She has no evidence of seizure activity. Unfortunately, we will have to hold her medications from oral administration because of her altered mental status to avoid aspiration. She will be on continuous positive airway pressure (CPAP), and we will check blood gas. I think CPAP will help her mostly because of her obesity and history of obstructive sleep apnea. However, she may need to be converted to bilevel noninvasive therapy if she has further hypercarbia. She is volume overloaded. Will attempt diuresis. Will continue to monitor her sodium to make sure that this has not caused any altered mental status with rapid fluctuation in sodium. At most, her sodium has changed by 6 in the past 24 hours. At this point in time, she has good urine function. Blood pressure is actually elevated at 155. She will have close monitoring in the intensive care unit. We will clarify advance directives, but she has a DO NOT RESUSCITATE order in the chart. Addendum dictated: LORETTA 05/25/2019 1217 Addendum transcribed: reece 05/25/2019 1224
[2019-05-25] MEDS: cefTRIAXone SOD 2 GM in D5W MINI-BAG PLUS 50 ML IV SCH (13:12)
[2019-05-25 13:29] LABS: ABG BASE EXCESS 7.7 (-2.0-2.0); ABG HCO3 35.9 MEQ/L (22.0-26.0); ABG O2 SATURATION 92.8 % (95.0-99.0); ABG PARTIAL PRESSURE O2 73.2 mmHg (75.0-100.0); ABG STANDARD HCO3 31.4 MEQ/L (22.0-26.0); ABG pH (ARTERIAL) 7.335 UNITS (7.350-7.450)
[2019-05-25 13:31] LABS: ABG PARTIAL PRESSURE CO2 68.9 mmHg (35.0-45.0)
--- NOTE | 2019-05-25 13:42 | IPN ---
DATE: 05/25/2019 Martha is seen in the intensive care unit (ICU). She has been transferred down by Dr. Burnham and ANNE Cardona who have been attending to her. She is improved significantly upon since arriving in the ICU. Code status was clarified and remains consistent - patient is full code. wants cardiopulmonary resuscitation (CPR), intubation or noninvasive ventilation, trial of tube feedings and trial of IV fluids as necessary. The only limitation that he places is he would not want long-term ventilation or long-term tube feedings.
[2019-05-25] MEDS ORDERED: LACTULOSE 20 GM/30 ML SYRUP UD PO SCH (16:00)
[2019-05-25] MEDS: PROPRANOLOL 60 MG LA CAP PO SCH (20:50)
--- NOTE | 2019-05-25 21:16 | ECGEPIP ---
[facility] Test Date: 2019-05-25 Pat Name: RUSTAM HICKS Department: Room: [place] [address] Gender: Female Solution Designer: FIORELLA : [id number] Requested By: STEPH House Order Number: [id number] Reading MD: Darrin Xie Measurements Intervals Royal Rate: 72 P: 57 MA: 194 QRS: 77 QRSD: 102 T: 71 QT: 370 QTc: 407 Interpretive Statements Normal sinus rhythm Nonspecific T wave abnormality No significant change when compared to prior tracing of 05/22/2109 Electronically Signed on 05-25-2019 21:15:57 EDT by Darrin Xie
[2019-05-26] VITALS (9 sets, daily range): BP systolic 124–173; BP diastolic 64–91
[2019-05-26] MEDS: FUROSEMIDE 40 MG/4 ML VIAL (J1940) IV SCH ×3 (03:05→20:15)
[2019-05-26 04:27] LABS: HEMATOCRIT 39.6 % (36.0-47.0); HEMOGLOBIN 12.3 g/dl (12.0-15.5); MEAN CORPUSCULAR HEMOGLOBIN 33.2 pg (27.0-33.0); MEAN CORPUSCULAR HGB CONC 31.1 g/dl (32.0-36.5); MEAN CORPUSCULAR VOLUME 106.7 fl (80.0-96.0); PLATELET COUNT, AUTOMATED 259 10^3/uL (150-450); RED BLOOD COUNT 3.71 10^6/uL (4.00-5.40); WHITE BLOOD COUNT 14.1 10^3/uL (4.0-10.0)
[2019-05-26 04:57] LABS: ALBUMIN 3.2 GM/DL (3.2-5.2); ALT/SGPT 34 U/L (12-78); BILIRUBIN,TOTAL 0.8 MG/DL (0.2-1.0); BLOOD UREA NITROGEN 10 MG/DL (7-18); CALCIUM LEVEL 8.9 MG/DL (8.8-10.2); CARBON DIOXIDE LEVEL 42 MEQ/L (21-32); CHLORIDE LEVEL 92 MEQ/L (98-107); CREATININE FOR GFR 0.61 MG/DL (0.55-1.30); GLOMERULAR FILTRATION RATE > 60.0 (>45); GLUCOSE, FASTING 99 MG/DL (70-100); POTASSIUM SERUM 3.3 MEQ/L (3.5-5.1); SODIUM LEVEL 138 MEQ/L (136-145); TOTAL PROTEIN 7.2 GM/DL (6.4-8.2)
[2019-05-26] MEDS: LEVOTHYROXINE 150MCG TABLET (0.15MG) PO SCH (05:05)
[2019-05-26] MEDS ORDERED: POTASSIUM CHLORIDE 10 MEQ SR TABLET PO ONE (06:00)
[2019-05-26 06:15] LABS: MAGNESIUM LEVEL 1.8 MG/DL (1.8-2.4)
--- NOTE | 2019-05-26 09:19 | IPNPDOC ---
Subjective Date Seen The patient was seen on 05/26/19. Subjective Chief Complaint/HPI More alert. no complaints Constitutional: Denies: Chills, Fever Pulmonary: Denies: Dyspnea, Cough Cardiovascular: Denies: Chest Pain, Palpitations Gastrointestinal: Denies: Nausea, Vomiting, Abdominal Pain, Diarrhea, Constipation Objective Physical Examination General Exam: Positive: Alert, No Acute Distress Eye Exam: Positive: PERRLA, Conjunctiva & lids normal Neck Exam: Positive: Supple; Negative: JVD Chest Exam: Positive: Normal air movement, Other (rattling referred upper airway sounds) Heart Exam: Positive: Rate Normal, Normal S1, Normal S2 Abdomen Exam: Positive: Normal bowel sounds, Soft; Negative: Tenderness Extremity Exam: Negative: Edema Neuro Exam: Positive: Normal Speech (At baseline) Psych Exam: Positive: Mental status NL, Other; Negative: Anxiety Assessment /Plan Problems (1) Acute CHF Status: Acute Response to Treatment: Improving Problem Text: Resp status improved with IV Lasix and good diuresis Decrease frequency to BID and monitor electrolytes and RF Echo pending (2) Acute and chronic respiratory failure with hypercapnia Status: Acute Problem Text: Secondary to Acute CHF Improved with diuresis continue her usual CPAP at for SHARON and wean oxygen (3) Altered mental status Status: Acute Response to Treatment: Improving Problem Text: 05/26 - Mental status improved today - -secondary to Metablic encephalopathy likely hepatic - -Continue Lactulose - Check ammonia level MRI with ? subdural hemorrhages, but significant motion artifact. CT head on admission without bleed -Repeat CT today -ST swallowing eval today - advance diet pending results Patient has not been prescribed Klonopin or Narcotics in several months and Urine drug screen negative for either of these, so excessive narcotics/Benzos not likley cause -She has SHARON on CPAP and states she uses her CPAP regularly -Treating UTI - - (4) Metabolic encephalopathy Problem Text: see above (5) Liver failure Status: Acute Problem Text: 05/26 - Exacerbation secondary to hepatic congestion from CHF and UTI Has underlying fatty liver Abd Us did not show enough ascites to perform paracentessis (6) Type 2 diabetes mellitus Status: Chronic Response to Treatment: Stable Problem Text: Blood sugar only 74 this am without any insulin given during admission. Start IVF with D5 (7) UTI (urinary tract infection) Status: Acute Problem Text: U/C grew Citrobacter resitent to Keflex - change to IV Rocephin (8) Seizure disorder Status: Acute Response to Treatment: Stable Problem Text: Lyrica and Carbamazepine held yesterday due to AMS, borderline high Tegretol level and liver failure, but will likely need to be restarted (9) SHARON on CPAP (10) Hypothyroid Status: Chronic Plan/VTE VTE Prophylaxis Ordered?: No VTE Exclusion Mechanical Proph: Other VTE Exclusion Pharmacological: At Low Risk for VTE Plan Diet: Continue Current Activity: Continue Current Therapy: PT, OT Diagnostics: Repeat Labs in AM Anticipated Discharge: Home With Services VS, I&O, 24H, [facility] Vital Signs/I&O Vital Signs Date Time Temp Pulse Resp B/P (MAP) Pulse Ox O2 Delivery O2 Flow Rate FiO2 05/26/19 08:00 98.7 77 30 167/66 (99) 91 1.0 05/23/19 03:45 Nasal Cannula I&O- Last 24 Hours up to 6 AM 05/26/19 06:00 Intake Total 120 ml Output Total 4210 ml Balance -4090 ml Laboratory Data 24H LABS Laboratory Tests 2 05/25/19 10:42: Blood Gas Bicarbonate Standard 32.1H, Arterial Blood pH 7.322L, Arterial Blood Partial Pressure CO2 72.9*H, Arterial Blood Partial Pressure O2 93.4, Arterial Blood Total CO2 39.1H, Arterial Blood HCO3 36.9H, Arterial Blood Base Excess 8.3H, Arterial Blood Oxygen Saturation 96.4 05/25/19 11:57: Prothrombin Time 15.3H, Prothromb Time International Ratio 1.23, Activated Partial Thromboplast Time 23.1L, [id number] Natriuretic Peptide 1417H, Carbamazepine (Tegretol) Level 9.0 05/25/19 13:18: Blood Gas Bicarbonate Standard 31.4H, Arterial Blood pH 7.335L, Arterial Blood Partial Pressure CO2 68.9*H, Arterial Blood Partial Pressure O2 73.2L, Arterial Blood Total CO2 38.0H, Arterial Blood HCO3 35.9H, Arterial Blood Base Excess 7.7H, Arterial Blood Oxygen Saturation 92.8L 05/25/19 13:23: Bedside Glucose (Misc Panel) 93 05/25/19 18:06: Bedside Glucose (Misc Panel) 86 05/26/19 01:54: Bedside Glucose (Misc Panel) 100 05/26/19 04:17: Nucleated Red Blood Cells % (auto) 0.0, Anion Gap 4L, Glomerular Filtration Rate > 60.0, Blood Urea Nitrogen 10, Creatinine 0.61, Sodium Level 138, Potassium Level 3.3L, Chloride Level 92L, Carbon Dioxide Level 42H, Calcium Level 8.9, Aspartate Amino Transf (AST/SGOT) 57H, Alanine Aminotransferase (ALT/SGPT) 34, Alkaline Phosphatase 133H, Total Bilirubin 0.8#, Total Protein 7.2, Albumin 3.2, Magnesium Level 1.8, Albumin/Globulin Ratio 0.80L CBC/BMP Laboratory Tests 05/26/19 04:17 Red Blood Count 3.71 L, Mean Corpuscular Volume 106.7 H, Mean Corpuscular Hemoglobin 33.2 H, Mean Corpuscular Hemoglobin Concent 31.1 L, Red Cell Distribution Width 13.6, Calcium Level 8.9, Aspartate Amino Transf (AST/SGOT) 57 H, Alanine Aminotransferase (ALT/SGPT) 34, Alkaline Phosphatase 133 H, Total Bilirubin 0.8 #, Total Protein 7.2, Albumin 3.2 Microbiology Microbiology 05/23/19 Blood Culture - Preliminary, Resulted No Growth after 72 hours. All specime... 05/23/19 Blood Culture - Preliminary, Resulted No Growth after 72 hours. All specime... 05/23/19 Respiratory Virus Panel (PCR) ([facility]) - Final, Complete 05/22/19 Urine Culture - Final, Complete Citrobacter Freundii YONATHAN MOON PA-C May 26, 2019 09:19
--- NOTE | 2019-05-26 09:24 | CR ---
DATE OF CONSULTATION: 05/26/2019 REFERRING PROVIDER: Dr. Ahmet Velasco REASON FOR CONSULTATION: Altered mental status with suspected metabolic encephalopathy. The patient is a 69-year-old female with a longstanding history of peripheral polyneuropathy managed with Lyrica, Cymbalta, and carbamazepine. For clarification in the chart, there is no history of seizure disorder. The patient was on carbamazepine since prior to 2003 before the patient established care with neurology. The patient presents with findings of urinary tract infection, elevated ammonia level which significantly stephania from 37 to 92. The patient's bacteria in the urine culture may be contributing towards production of ammonia by disrupting the urinary cycle. The patient is also noted to have polypharmacy for pain management possibly contributing towards cognitive impairment. Carbamazepine medication has been discontinued. The patient should be evaluated for withdrawal seizures. The patient should be monitored for withdrawal seizures as a result of abrupt discontinuation of the medication. She developed respiratory distress but did not require intubation. Once medications were held, the patient seems to be a little bit more awake and cooperative during examination when I had seen her. She was able to move all four extremities. She is able to communicate without any aphasia. She does appear to be fatigued, lethargic and falls asleep. Head CT initially was read as involutional changes. MRI of the brain did not show any acute stroke, motion artifact was noted. There was evidence of biparietal possible heart attack versus subdural hematoma. I recommended repeat head CT to confirm the absence of any hemorrhage at this point in time. Electroencephalogram (EEG) has also been recommended. The patient has been unable to keep food and liquids down and therefore is unable to keep lactulose down. Primary team may place a nasogastric (NG) tube to provide a means of receiving oral medications. REVIEW OF SYSTEMS: Hard to obtain. The patient is sleepy but arousable. She denies having any pain. She denies having any weakness, headache, change in vision, vertigo. She does not sound to have dysarthria or aphasia. She is speaking with the continuous positive airway pressure (CPAP) machine on affecting the tone of her voice. PAST MEDICAL HISTORY: Rheumatoid arthritis, ankylosis spondylitis, positive HLAB27, hypertension, hyperlipidemia, migraine headaches, chronic headaches, fibromyalgia, type 2 diabetes, vitamin D deficiency, mild hypothyroidism, tuberculosis (TB) as a child, status post NIH treatment for 1-2 years, vitamin B12 deficiency, peripheral neuropathy, polyradiculopathy, osteoarthritis, chronic back with degenerative disc disease, interstitial granulomatous, dermatitism, degenerative disc disease of cervical spine, H3 influenza in 2013. PAST SURGICAL HISTORY: Hysterectomy, bilateral salpingo-oophorectomy (BSO), and cholecystectomy. FAMILY HISTORY: Siblings with brain cancer and son with brain cancer. Mother with Alzheimer. SOCIAL HISTORY: The patient denies use of any alcohol, tobacco or illicit drugs, HOME MEDICATIONS: - amitriptyline 75 mg by mouth nightly - carbamazepine ER 400 mg by mouth twice a day - clonazepam 0.25 mg by mouth nightly - cyanocobalamin 1000 mcg injection once a month - duloxetine 60 mg by mouth daily - Zetia 10 mg by mouth daily - folic acid 1 mg by mouth twice a day - gemfibrozil 600 mg by mouth twice a day - hydroxychloroquine 200 mg by mouth twice a day - levothyroxine 150 mcg by mouth daily - meloxicam 15 mg by mouth daily - multivitamin by mouth daily - Lyrica 300 mg by mouth twice a day - propranolol 120 mg by mouth nightly - sulfasalazine 1000 mg by mouth twice a day - PreserVision AREDS tablet 1 tablet by mouth twice a day ALLERGIES: BARBITURATES, BUTALBITAL, CAFFEINE, THEOPHYLLINE, MEPERIDINE. PHYSICAL EXAMINATION: Blood pressure is 162/63, pulse of 71, respiratory rate is 20, temperature is 98 degrees Fahrenheit, oxygenation 92% on 2 liters nasal cannula. The patient is awake, alert to her name. She does cooperate. She does not appear to have dysphasia or dysarthria. The patient's facial muscles could not be properly assessed as the patient is currently wearing a CPAP mask. Tongue does protrude midline. There is no weakness in sternocleidomastoids. There is no pronator drift. Strength is 5/5 including bilateral handgrip, biceps, triceps, anterior tibialis, quadriceps. Sensory appears to be intact to light touch in all four extremities. Coordination does not reveal any gross ataxia. There does appear to be mild asterixis. Gait deferred. ASSESSMENT: 69-year-old female with metabolic encephalopathy in the present state of having had hyperammonemia. The patient does have a urinary tract infection with bacteria, which may disrupt urea cycle. Polypharmacy may also be able a possibility. MRI reports bilateral subdural parietal hematoma versus artifact. PLAN: 1. Obtain a head CT without contrast. 2. Agree with reduction of polypharmacy, however not so abruptly. Watch for any withdrawal seizures. 3. Obtain EEG. 4. Continue medical management. The patient seems to be improving at this point in time.
[2019-05-26] MEDS: LACTULOSE 20 GM/30 ML SYRUP UD PO SCH ×3 (09:43→20:14)
[2019-05-26] MEDS: MOM 30ML SUSPENSION UDC PO SCH (09:44)
--- NOTE | 2019-05-26 10:50 | REP ---
CT BRAIN WITHOUT CONTRAST: HISTORY: Follow-up question subdural hemorrhages on MRI study. Comparison brain CT study May 22, 2019. Comparison MRI exam May 24, 2019. Comparison CT is also reviewed from May 29, 2017 and prior MR from June 11, 2010. CT FINDINGS: Preliminary digital drawer liner radiograph demonstrates mild hyperostosis frontalis interna. This is a normal variant which is unchanged. The bony calvarium is intact. Visualized paranasal sinuses are clear. No orbital abnormality is seen. There is mild generalized volume loss unchanged. Minimal vascular calcification is observed in the carotid siphons. There is no evidence of infarct. There is no evidence of intracranial hemorrhage. No extra-axial fluid collection is seen. No mass, infarct or midline shift is seen. IMPRESSION: Diffuse cerebral atrophy. No acute intracranial abnormality. Electronically Signed by Ray Martínez MD 05/26/2019 10:56 A
[2019-05-26] MEDS: cefTRIAXone SOD 2 GM in D5W MINI-BAG PLUS 50 ML IV SCH (13:01)
--- NOTE | 2019-05-26 14:34 | CCN ---
DATE: 05/26/2019 The patient was seen and examined this morning during rounds. The patient reports that she feels her shortness of breath has improved since her admission. Her mental status has definitely improved today. She is more awake and alert and less confused reportedly as per the nursing staff. The patient was given IV Lasix yesterday and had good diuresis. She is also on lactulose still but has not been having significant amounts of bowel movements. The patient denies any abdominal pain currently. No nausea or vomiting. She had continues to have some lower extremity edema although it has slightly improved. The patient denies any fevers or chills. Has not had any cough. PHYSICAL EXAM: Temperature 98.9, pulse 76, respirations 22, blood pressure 124/64, O2 sat 93% on 1 liter nasal cannula, ins 60 mL, outs 3.5 liters, net negative 3.4 liters. General: The patient is an obese female who is sitting in bed in no apparent distress. She is not using any accessory muscles for respiration and is able to speak in short sentences. HEENT: Normocephalic, atraumatic. There is limited small mouth opening. Oral mucosa is moist. The patient has a thick neck. Unable to appreciate jugular venous distention (JVD) due to her neck habitus, but there is no palpable adenopathy. Cardiovascular: Distant heart sounds, regular rate and rhythm, normal S1-S2 without murmurs appreciated. Pulmonary: Patient with fine crackles bilaterally in the bases up to the mid back and mildly in the upper lobes. There is no wheezing noted. No rhonchi. Abdomen: Is obese, soft and nontender. No palpable mass or hepatomegaly. Lower extremities: There is improvement in her pitting edema but she does still have some anasarca noted. LABORATORY DATA: WBC 14.1, hemoglobin 12.3, platelets 259. Chemistry sodium is 138, potassium 3.3, chloride is 92, bicarb is 42, BUN 10, creatinine 0.61, glucose 99, BNP yesterday was 1417, AST and ALT within normal limits. Alk phos is 133. ABG yesterday pH 7.335, pCO2 of 68.9, pO2 of 73.2. Micro urine cultures are positive for Citrobacter. ASSESSMENT AND PLAN: Ms. Reyna is a 69-year-old female with a history of hypertension, hyperlipidemia, diabetes, osteoarthritis, fibromyalgia with possible prior history of rheumatoid arthritis, recently diagnosed obstructive sleep apnea (SHARON), obesity hypoventilation syndrome (OHS) with possible interstitial lung disease and chronic hypoxemic with respiratory failure on nasal cannula oxygen who presented initially with complaints of altered mental status. The patient's altered mental status was likely due to a combination of metabolic encephalopathy, some toxic encephalopathy secondary to her medications, also possibly due to hyperammonemia from hepatic congestion from decompensated heart failure. Patient also had a urinary tract infection (UTI) which may have contributed as well to her encephalopathy. The patient had been noted to have increasing lower extremity edema. As an outpatient the patient was suspected to have a component of right-sided heart failure as well as diastolic heart failure and was started on Lasix. Her BNP did improve with Lasix and she was to followup with her primary doctor with further adjustments in her Lasix and monitoring of her renal function and electrolytes. On admission her BNP was noted to be significantly increased from previous. Her CT chest showed some increase in the ground-glass opacities and intralobular septal thickening suggestive of increasing pulmonary edema. She does have some mild fibrosis more in upper and midlung graham which was previously noted and which may have been due to her prior methotrexate use which she was on chronically for a possible history of rheumatoid arthritis or due to a possible CTD. Her rheumatoid arthritis and anti CCP were negative however as well as rest of CTD panel. Altered mental status likely metabolic encephalopathy with hyperammonemia possibly secondary to hepatic congestion from her decompensated heart failure. There is also some encephalopathy suspected due to her UTI as well as from medications. - Mental status appears to be improving. Appreciate neurology consult. She did have an MRI which showed artifact versus possible trace bilateral subdural hemorrhages although this may be due to motion artifact. She is ordered for a repeat CT head today for further evaluation. - Her ammonia level appears to be improving and she is continued on lactulose. - we will continue monitor her LFTs although they do not appear to be significantly elevated. History of chronic hypoxemic respiratory failure on nasal cannula oxygen supplementation at home at 0.5 to 1 liters a minute as well as chronic hypercarbic respiratory failure noted on her ABG likely in the setting OHS/SHARON. The patient also was noted to have decompensated heart failure, suspect right-sided heart failure and a diastolic dysfunction as the cause. She does have an enlarged pulmonary artery on her CT angiogram, but her previous echo was limited due to poor acoustic windows unable to give PA pressures. - Would continue with Lasix for diuresis. She is significantly net negative in the past 24 hours, however, she does continue to have evidence of lower extremity edema and anasarca. - We will continue to monitor her ins and outs and monitor electrolytes and replete as needed. - continue with her home nightly continuous positive airway pressure (CPAP) with 14 cm of water. - Will followup the results of the repeat echo. Deep venous thrombosis (DVT) prophylaxis, thromboembolic deterrent stockings (TEDS) and sequential compression devices (SCDs). We will restart heparin when head repeat head CT shows no evidence of bleed. FULL CODE. The patient can followup with pulmonary in 1-2 weeks after her discharge. Please do not hesitate to call if any further questions or concerns. SHANIA
[2019-05-26] MEDS: HEPARIN SOD (PORCINE) 5000 UNITS/ML VIAL SQ SCH ×2 (14:35→21:06)
--- NOTE | 2019-05-26 19:01 | ECHO ---
DATE OF PROCEDURE: 05/26/2019 AGE: 69 GENDER: Female HEIGHT: 65 inches WEIGHT: 220 pounds BODY SURFACE AREA: 2.06 m2 PATIENT LOCATION: Inpatient, ICU, room 3201 REFERRING PHYSICIAN: Dr. Ranulfo Burnham INDICATION: Cardiomegaly. 2-D MEASUREMENTS: RV: 4.7 cm LV: 4.4 cm Septum: 1.1 cm Posterior wall: 1.0 cm Aortic root: 3.0 cm LA: 3.8 cm LVEF: 65% DOPPLER MEASUREMENTS: AV: 1.47 m/s LVOT: 1.3 m/s LVOT diameter: 1.8 cm MV-E: 99, A: 81, EA ratio: 1.2 Early mitral deceleration time: 190 ms E prime: 7.6, A prime: 5.5, E/E prime ratio: 13 PCWP: 15.3 mmHg PV: 0.8 m/s RVSP: 55 - 60 mmHg IVC: 2.3 cm COMMENTS Normal sinus rhythm without intraventricular conduction disturbance. Technically challenging study in light of the patient's body habitus but diagnostically useful information was still obtained. M-mode and two-dimensional echocardiography was performed with pulsed, continuous wave, color flow and tissue Doppler studies. Normal left ventricular size, wall thickness and wall motion. Left atrial size upper limits of normal to slightly dilated with currently normal Doppler assessment of LV diastolic function and estimated mean left atrial pressure upper limits of normal. Moderately dilated right heart chambers with normal wall motion with Doppler evidence of at least moderate to moderately severe pulmonary hypertension. Mildly dilated inferior vena cava with reduced respiratory collapse in keeping with elevated central venous pressure/right heart failure. Normal appearing and functioning valvular structures. Unable to detect an intracardiac mass or pericardial effusion. Normal aortic root size.
[2019-05-26] MEDS: PROPRANOLOL 60 MG LA CAP PO SCH (20:15)
[2019-05-27 00:03] VITALS: BP 139/70
[2019-05-27 04:00] VITALS: BP 165/79
[2019-05-27] MEDS: FUROSEMIDE 40 MG/4 ML VIAL (J1940) IV SCH ×3 (04:06→20:01)
[2019-05-27 05:34] LABS: HEMATOCRIT 40.7 % (36.0-47.0); HEMOGLOBIN 12.5 g/dl (12.0-15.5); MEAN CORPUSCULAR HEMOGLOBIN 32.7 pg (27.0-33.0); MEAN CORPUSCULAR HGB CONC 30.7 g/dl (32.0-36.5); MEAN CORPUSCULAR VOLUME 106.5 fl (80.0-96.0); PLATELET COUNT, AUTOMATED 244 10^3/uL (150-450); RED BLOOD COUNT 3.82 10^6/uL (4.00-5.40); WHITE BLOOD COUNT 14.4 10^3/uL (4.0-10.0)
[2019-05-27] MEDS: LEVOTHYROXINE 150MCG TABLET (0.15MG) PO SCH (05:34)
[2019-05-27] MEDS: HEPARIN SOD (PORCINE) 5000 UNITS/ML VIAL SQ SCH ×3 (05:34→22:07)
[2019-05-27 05:56] LABS: ALBUMIN 2.8 GM/DL (3.2-5.2); ALT/SGPT 30 U/L (12-78); BILIRUBIN,TOTAL 0.6 MG/DL (0.2-1.0); BLOOD UREA NITROGEN 14 MG/DL (7-18); CALCIUM LEVEL 8.9 MG/DL (8.8-10.2); CARBON DIOXIDE LEVEL 44 MEQ/L (21-32); CHLORIDE LEVEL 89 MEQ/L (98-107); CREATININE FOR GFR 0.61 MG/DL (0.55-1.30); GLOMERULAR FILTRATION RATE > 60.0 (>45); GLUCOSE, FASTING 109 MG/DL (70-100); POTASSIUM SERUM 2.9 MEQ/L (3.5-5.1); SODIUM LEVEL 139 MEQ/L (136-145); TOTAL PROTEIN 7.2 GM/DL (6.4-8.2)
[2019-05-27] MEDS ORDERED: POTASSIUM CHLORIDE 10% LIQ 20 MEQ/15 ML UDC PO ONE (06:30)
[2019-05-27 08:00] VITALS: BP 167/81
[2019-05-27] MEDS: LACTULOSE 20 GM/30 ML SYRUP UD PO SCH ×3 (09:00→19:44)
--- NOTE | 2019-05-27 11:37 | IPNPDOC ---
Subjective Date Seen The patient was seen on 05/27/19. Subjective Chief Complaint/HPI close to baseline MS Constitutional: Denies: Chills Eyes: Denies: Pain ENT: Denies: Head Aches Pulmonary: Denies: Dyspnea, Cough Cardiovascular: Denies: Chest Pain, Palpitations Gastrointestinal: Denies: Vomiting Objective Physical Examination General Exam: Positive: Alert, No Acute Distress Eye Exam: Positive: PERRLA, Conjunctiva & lids normal Neck Exam: Positive: Supple Chest Exam: Positive: Normal air movement, Other Heart Exam: Positive: Rate Normal, Normal S1, Normal S2 Abdomen Exam: Positive: Normal bowel sounds, Soft Extremity Exam: Negative: Edema Neuro Exam: Positive: Normal Speech Psych Exam: Positive: Mental status NL, Other Assessment /Plan Problems (1) Acute CHF Status: Acute Response to Treatment: Improving Problem Text: 2 R HF 2 mod-severe PHTN -6L since 05/25 continue fur 40 IV q8H 05/25/19 TTE: Normal sinus rhythm without intraventricular conduction disturbance. Technically challenging study in light of the patient's body habitus but diagnostically useful information was still obtained. M-mode and two-dimensional echocardiography was performed with pulsed, continuous wave, color flow and tissue Doppler studies. Normal left ventricular size, wall thickness and wall motion. Left atrial size upper limits of normal to slightly dilated with currently normal Doppler assessment of LV diastolic function and estimated mean left atrial pressure upper limits of normal. Moderately dilated right heart chambers with normal wall motion with Doppler evidence of at least moderate to moderately severe pulmonary hypertension. Mildly dilated inferior vena cava with reduced respiratory collapse in keeping with elevated central venous pressure/right heart failure. Normal appearing and functioning valvular structures. Unable to detect an intracardiac mass or pericardial effusion. (2) Acute and chronic respiratory failure with hypercapnia Status: Acute Problem Text: Secondary to Acute CHF Improved with diuresis continue her usual CPAP at for SHARON and wean oxygen (3) Altered mental status Status: Acute Response to Treatment: Improving Problem Text: 2 HE (2 fatty liver/hepatic congestion)+/- TME 05/27 NH3 22 (05/24 92) on lact 30 TID, MS improving 05/26 CT head NAD, appreciate Neuro input 05/26 MRI with ? subdural hemorrhages, but significant motion artifact. CT head on admission without bleed -ST swallowing eval today - advance diet pending results Patient has not been prescribed Klonopin or Narcotics in several months and Urine drug screen negative for either of these, so excessive narcotics/Benzos not likley cause -She has SHARON on CPAP and states she uses her CPAP regularly -Treating UTI - - (4) Liver failure Status: Acute Problem Text: 05/26 - Exacerbation secondary to hepatic congestion from CHF and UTI Has underlying fatty liver Abd Us did not show enough ascites to perform paracentessis (5) Type 2 diabetes mellitus Status: Chronic Response to Treatment: Stable Problem Text: Blood sugar only 74 this am without any insulin given during admission. Start IVF with D5 (6) UTI (urinary tract infection) Status: Acute Problem Text: D3 ceftriaxone 05/23 BCX2 NG 05/22 UCX C. freudni (7) Seizure disorder Status: Acute Response to Treatment: Stable Problem Text: HD pregalbin 300 BID, carb ER 400 BID 05/27 MS close to baseline; therefore, restarted carb ER at 300 BID Lyrica and Carbamazepine held due to AMS, borderline high Tegretol level (9) and liver failure, but will likely need to be restarted (8) SHARON on CPAP (9) Hypothyroid Status: Chronic (10) Pulmonary hypertension, moderate to severe Status: Chronic Problem Text: as per CHF Plan/VTE VTE Prophylaxis Ordered?: No VTE Exclusion Mechanical Proph: Other VTE Exclusion Pharmacological: At Low Risk for VTE Plan Diet: Continue Current Activity: Continue Current Therapy: PT, OT Diagnostics: Repeat Labs in AM Anticipated Discharge: Home With Services VS, I&O, 24H, [facility] Vital Signs/I&O Vital Signs Date Time Temp Pulse Resp B/P (MAP) Pulse Ox O2 Delivery O2 Flow Rate FiO2 05/27/19 08:00 1.0 05/27/19 08:00 98.7 72 18 167/81 (109) 92 05/23/19 03:45 Nasal Cannula I&O- Last 24 Hours up to 6 AM 05/27/19 06:00 Intake Total 400 ml Output Total 2435 ml Balance -2035 ml Laboratory Data 24H LABS Laboratory Tests 2 05/26/19 17:22: Bedside Glucose (Misc Panel) 136H 05/27/19 04:47: Nucleated Red Blood Cells % (auto) 0.0, Anion Gap 6L, Glomerular Filtration Rate > 60.0, Blood Urea Nitrogen 14, Creatinine 0.61, Sodium Level 139, Potassium Level 2.9*L, Chloride Level 89L, Carbon Dioxide Level 44H, Calcium Level 8.9, Aspartate Amino Transf (AST/SGOT) 42H, Alanine Aminotransferase (ALT/SGPT) 30, Alkaline Phosphatase 124H, Total Bilirubin 0.6, Total Protein 7.2, Albumin 2.8L, Ammonia 22, Albumin/Globulin Ratio 0.64L CBC/BMP Laboratory Tests 05/27/19 04:47 Red Blood Count 3.82 L, Mean Corpuscular Volume 106.5 H, Mean Corpuscular Hemoglobin 32.7, Mean Corpuscular Hemoglobin Concent 30.7 L, Red Cell Distribution Width 13.3, Calcium Level 8.9, Aspartate Amino Transf (AST/SGOT) 42 H, Alanine Aminotransferase (ALT/SGPT) 30, Alkaline Phosphatase 124 H, Total Bilirubin 0.6, Total Protein 7.2, Albumin 2.8 L Microbiology Microbiology 05/23/19 Blood Culture - Preliminary, Resulted No Growth after 72 hours. All specime... 05/23/19 Blood Culture - Preliminary, Resulted No Growth after 72 hours. All specime... 05/23/19 Respiratory Virus Panel (PCR) ([facility]) - Final, Complete 05/22/19 Urine Culture - Final, Complete Citrobacter Freundii Pipo Tracy M.D. May 27, 2019 11:37
[2019-05-27] MEDS: cefTRIAXone SOD 2 GM in D5W MINI-BAG PLUS 50 ML IV SCH (11:55)
[2019-05-27 12:00] VITALS: BP 143/72
[2019-05-27 13:36] LABS: BLOOD UREA NITROGEN 13 MG/DL (7-18); CALCIUM LEVEL 8.7 MG/DL (8.8-10.2); CARBON DIOXIDE LEVEL 48 MEQ/L (21-32); CHLORIDE LEVEL 88 MEQ/L (98-107); GLOMERULAR FILTRATION RATE > 60.0 (>45); GLUCOSE, FASTING 124 MG/DL (70-100); POTASSIUM SERUM 3.5 MEQ/L (3.5-5.1); SODIUM LEVEL 136 MEQ/L (136-145)
--- NOTE | 2019-05-27 13:49 | EEG ---
DATE OF PROCEDURE: 05/26/2019 REFERRING PHYSICIAN: Dr. Ahmet Velasco DIAGNOSIS: Altered mental status. EEG #: [id number] HISTORY: The patient is a 69-year-old woman who was admitted at [facility] due to confusion and generalized weakness. This EEG was done to rule out epileptic potential. CT scan of chest showed pulmonary edema. She is currently taking propranolol, lactulose, , Lasix, levothyroxine, etc. TECHNICAL DESCRIPTION: This digital EEG was recorded by 21 scalp, ear and two EKG electrodes and was reviewed in bipolar and referential montages following reformatting in 10-20 international echo placement system. INTERPRETATION: The patient was noted to be in awake and drowsy states during this EEG. Resting awake background rhythm consisted of 5 Hz theta activity measuring 15-60 microvolts in amplitude which was symmetric bilaterally. Stage I and II sleep were reviewed and were symmetric bilaterally. Hyperventilation could not be performed. Photic stimulation remained unremarkable. EKG revealed normal sinus rhythm. No focal, lateralizing or epileptiform abnormalities were seen. No clinical or electrographic seizures were recorded. EKG revealed sinus rhythm. CONCLUSION: This EEG in awake, drowsy states, stage I and II sleep is abnormal due to presence of generalized slowing and disorganization of background consistent with nonspecific diffuse cerebral dysfunction such as seen in encephalopathy due to multiple potential causes. No epileptiform abnormalities were seen. Clinical correlation is recommended.
[2019-05-27] MEDS: carBAMazepine XR 200 MG TAB PO SCH ×2 (15:24→20:02)
[2019-05-27 15:30] VITALS: BP 136/80
[2019-05-27] MEDS: PROPRANOLOL 60 MG LA CAP PO SCH (20:02)
[2019-05-27 22:00] VITALS: BP 149/85
[2019-05-28] MEDS: FUROSEMIDE 40 MG/4 ML VIAL (J1940) IV SCH ×3 (03:47→20:00)
[2019-05-28] MEDS: HEPARIN SOD (PORCINE) 5000 UNITS/ML VIAL SQ SCH ×3 (05:10→22:20)
[2019-05-28] MEDS: LEVOTHYROXINE 150MCG TABLET (0.15MG) PO SCH (05:10)
[2019-05-28 06:00] VITALS: BP 158/82
[2019-05-28 06:22] LABS: HEMATOCRIT 37.1 % (36.0-47.0); HEMOGLOBIN 11.8 g/dl (12.0-15.5); MEAN CORPUSCULAR HEMOGLOBIN 32.4 pg (27.0-33.0); MEAN CORPUSCULAR HGB CONC 31.8 g/dl (32.0-36.5); MEAN CORPUSCULAR VOLUME 101.9 fl (80.0-96.0); PLATELET COUNT, AUTOMATED 264 10^3/uL (150-450); RED BLOOD COUNT 3.64 10^6/uL (4.00-5.40); WHITE BLOOD COUNT 12.5 10^3/uL (4.0-10.0)
[2019-05-28 07:23] LABS: ALT/SGPT 35 U/L (12-78); BILIRUBIN,TOTAL 0.7 MG/DL (0.2-1.0); BLOOD UREA NITROGEN 14 MG/DL (7-18); CALCIUM LEVEL 9.1 MG/DL (8.8-10.2); CARBON DIOXIDE LEVEL 48 MEQ/L (21-32); CHLORIDE LEVEL 87 MEQ/L (98-107); CREATININE FOR GFR 0.54 MG/DL (0.55-1.30); GLOMERULAR FILTRATION RATE > 60.0 (>45); GLUCOSE, FASTING 126 MG/DL (70-100); MAGNESIUM LEVEL 1.8 MG/DL (1.8-2.4); POTASSIUM SERUM 2.5 MEQ/L (3.5-5.1); SODIUM LEVEL 138 MEQ/L (136-145); TOTAL PROTEIN 7.3 GM/DL (6.4-8.2)
[2019-05-28] MEDS ORDERED: POTASSIUM CHLORIDE 10 MEQ SR TABLET PO ONE ×2 (08:00→10:00)
[2019-05-28] MEDS: LACTULOSE 20 GM/30 ML SYRUP UD PO SCH ×3 (08:24→20:00)
[2019-05-28] MEDS: carBAMazepine XR 200 MG TAB PO SCH ×3 (08:25→20:00)
[2019-05-28] MEDS: cefTRIAXone SOD 2 GM in D5W MINI-BAG PLUS 50 ML IV SCH (12:33)
[2019-05-28 14:00] VITALS: BP 182/100
--- NOTE | 2019-05-28 15:04 | IPNPDOC ---
Subjective Date Seen The patient was seen on 05/28/19. Subjective Chief Complaint/HPI MS close to baseline Constitutional: Denies: Chills Eyes: Denies: Pain ENT: Denies: Head Aches, Ear Pain Pulmonary: Denies: Dyspnea Cardiovascular: Denies: Chest Pain Gastrointestinal: Denies: Nausea, Vomiting Objective Physical Examination General Exam: Positive: Alert, No Acute Distress Eye Exam: Positive: PERRLA, Conjunctiva & lids normal Neck Exam: Positive: Supple Chest Exam: Positive: Normal air movement, Other Heart Exam: Positive: Rate Normal, Normal S1, Normal S2 Abdomen Exam: Positive: Normal bowel sounds, Soft Extremity Exam: Negative: Edema Neuro Exam: Positive: Normal Speech Psych Exam: Positive: Mental status NL, Other Assessment /Plan Problems (1) Altered mental status Status: Acute Response to Treatment: Improving Problem Text: 2 HE (2 fatty liver/hepatic congestion)+/- TME 05/28 MS improved, but FAR from baseline per 05/27 NH3 22 (05/24 92) on lact 30 TID, 05/26 CT head NAD, appreciate Neuro input 05/26 MRI with ? subdural hemorrhages, but significant motion artifact. CT head on admission without bleed - (2) Hypertension Status: Chronic Problem Text: 05/28 SBP to 180: therefore, + los 25 BID to HD prop ER 120 QD (3) UTI (urinary tract infection) Status: Acute Problem Text: D4 ceftriaxone 05/23 BCX2 NG 05/22 UCX Liborio coffman (4) Acute CHF Status: Acute Response to Treatment: Improving Problem Text: 2 R HF 2 mod-severe PHTN -8L since 05/25 continue fur 40 IV q8H 05/28 K 2.5/Mg 1.8; + 40 po x 2; to 2.8, therefore, repeat 40 po x 2 and + max 25 BID 05/25/19 TTE: Normal sinus rhythm without intraventricular conduction disturbance. Technically challenging study in light of the patient's body habitus but diagnostically useful information was still obtained. M-mode and two-dimensional echocardiography was performed with pulsed, continuous wave, color flow and tissue Doppler studies. Normal left ventricular size, wall thickness and wall motion. Left atrial size upper limits of normal to slightly dilated with currently normal Doppler assessment of LV diastolic function and estimated mean left atrial pressure upper limits of normal. Moderately dilated right heart chambers with normal wall motion with Doppler evidence of at least moderate to moderately severe pulmonary hypertension. Mildly dilated inferior vena cava with reduced respiratory collapse in keeping with elevated central venous pressure/right heart failure. Normal appearing and functioning valvular structures. Unable to detect an intracardiac mass or pericardial effusion. (5) Acute and chronic respiratory failure with hypercapnia Status: Acute Problem Text: Secondary to Acute CHF Improved with diuresis continue her usual CPAP at hs for SHARON and wean oxygen (6) Liver failure Status: Acute Problem Text: 05/26 - Exacerbation secondary to hepatic congestion from CHF and UTI Has underlying fatty liver Abd Us did not show enough ascites to perform paracentessis (7) Type 2 diabetes mellitus Status: Chronic Response to Treatment: Stable Problem Text: AC TID BG 130-140 s coverage (8) Seizure disorder Status: Acute Response to Treatment: Stable Problem Text: HD pregalbin 300 BID, carb ER 400 BID 05/27 MS close to baseline; therefore, restarted carb ER at 300 BID Lyrica and Carbamazepine held due to AMS, borderline high Tegretol level (9) and liver failure, but will likely need to be restarted (9) SHARON on CPAP (10) Hypothyroid Status: Chronic Problem Text: 04/2019 3.7 on HD 150 (11) Pulmonary hypertension, moderate to severe Status: Chronic Problem Text: as per CHF 2 years of unpalliated SHARON (has used qPM x ~3W per ) (12) Physical deconditioning Status: Chronic Problem Text: 05/28 + PT Plan/VTE VTE Prophylaxis Ordered?: No VTE Exclusion Mechanical Proph: Other VTE Exclusion Pharmacological: At Low Risk for VTE Plan Diet: Continue Current Activity: Continue Current Therapy: PT, OT Diagnostics: Repeat Labs in AM Anticipated Discharge: Home With Services VS, I&O, 24H, [facility] Vital Signs/I&O Vital Signs Date Time Temp Pulse Resp B/P (MAP) Pulse Ox O2 Delivery O2 Flow Rate FiO2 05/28/19 06:00 99.9 78 20 158/82 (107) 90 1.0 05/23/19 03:45 Nasal Cannula I&O- Last 24 Hours up to 6 AM 05/28/19 06:00 Intake Total 860 ml Output Total 2300 ml Balance -1440 ml Laboratory Data 24H LABS Laboratory Tests 2 05/27/19 17:00: Bedside Glucose (Misc Panel) 139H 05/28/19 05:55: Nucleated Red Blood Cells % (auto) 0.0, Anion Gap 3L, Glomerular Filtration Rate > 60.0, Blood Urea Nitrogen 14, Creatinine 0.54L, Sodium Level 138, Potassium Level 2.5#*L, Chloride Level 87L, Carbon Dioxide Level 48H, Calcium Level 9.1, Aspartate Amino Transf (AST/SGOT) 40H, Alanine Aminotransferase (ALT/SGPT) 35, Alkaline Phosphatase 126H, Total Bilirubin 0.7, Total Protein 7.3, Albumin 3.0L, Magnesium Level 1.8, Albumin/Globulin Ratio 0.70L CBC/BMP Laboratory Tests 05/28/19 05:55 Red Blood Count 3.64 L, Mean Corpuscular Volume 101.9 H, Mean Corpuscular Hem oglobin 32.4, Mean Corpuscular Hemoglobin Concent 31.8 L, Red Cell Distribution Width 13.3, Calcium Level 9.1, Aspartate Amino Transf (AST/SGOT) 40 H, Alanine Aminotransferase (ALT/SGPT) 35, Alkaline Phosphatase 126 H, Total Bilirubin 0.7, Total Protein 7.3, Albumin 3.0 L Microbiology Microbiology 05/23/19 Blood Culture - Final, Complete NO GROWTH AFTER 5 DAYS 05/23/19 Blood Culture - Final, Complete NO GROWTH AFTER 5 DAYS 05/23/19 Respiratory Virus Panel (PCR) ([facility]) - Final, Complete 05/22/19 Urine Culture - Final, Complete Citrobacter Freundii Pipo Tracy M.D. May 28, 2019 15:04
[2019-05-28] MEDS: LOSARTAN 25 MG TAB PO SCH ×2 (15:42→20:06)
[2019-05-28 16:31] LABS: ALBUMIN 2.9 GM/DL (3.2-5.2); BLOOD UREA NITROGEN 15 MG/DL (7-18); CALCIUM LEVEL 9.1 MG/DL (8.8-10.2); CARBON DIOXIDE LEVEL 48 MEQ/L (21-32); CHLORIDE LEVEL 89 MEQ/L (98-107); GLOMERULAR FILTRATION RATE > 60.0 (>45); GLUCOSE, FASTING 132 MG/DL (70-100); MAGNESIUM LEVEL 1.8 MG/DL (1.8-2.4); PHOSPHORUS LEVEL 2.6 MG/DL (2.5-4.9); POTASSIUM SERUM 2.8 MEQ/L (3.5-5.1); SODIUM LEVEL 138 MEQ/L (136-145)
[2019-05-28] MEDS ORDERED: SPIRONOLACTONE 25 MG TAB PO SCH (17:00)
[2019-05-28] MEDS: POTASSIUM CHLORIDE 10 MEQ SR TABLET PO SCH ×2 (18:37→20:22)
[2019-05-28 20:00] VITALS: BP 187/92
[2019-05-28 20:22] VITALS: BP 187/92
[2019-05-28] MEDS: PROPRANOLOL 60 MG LA CAP PO SCH (20:22)
[2019-05-29] MEDS: FUROSEMIDE 40 MG/4 ML VIAL (J1940) IV SCH (04:07)
[2019-05-29] MEDS: LEVOTHYROXINE 150MCG TABLET (0.15MG) PO SCH (05:31)
[2019-05-29] MEDS: HEPARIN SOD (PORCINE) 5000 UNITS/ML VIAL SQ SCH (05:32)
[2019-05-29 06:21] LABS: HEMATOCRIT 37.8 % (36.0-47.0); HEMOGLOBIN 11.9 g/dl (12.0-15.5); MEAN CORPUSCULAR HEMOGLOBIN 32.6 pg (27.0-33.0); MEAN CORPUSCULAR HGB CONC 31.5 g/dl (32.0-36.5); MEAN CORPUSCULAR VOLUME 103.6 fl (80.0-96.0); RED BLOOD COUNT 3.65 10^6/uL (4.00-5.40); WHITE BLOOD COUNT 15.7 10^3/uL (4.0-10.0)
[2019-05-29 06:30] LABS: PLATELET COUNT, AUTOMATED 371 10^3/uL (150-450)
[2019-05-29 06:49] LABS: ALBUMIN 3.1 GM/DL (3.2-5.2); ALT/SGPT 44 U/L (12-78); BLOOD UREA NITROGEN 14 MG/DL (7-18); CALCIUM LEVEL 9.5 MG/DL (8.8-10.2); CARBON DIOXIDE LEVEL 43 MEQ/L (21-32); CHLORIDE LEVEL 91 MEQ/L (98-107); CREATININE FOR GFR 0.63 MG/DL (0.55-1.30); GLOMERULAR FILTRATION RATE > 60.0 (>45); GLUCOSE, FASTING 154 MG/DL (70-100); PHOSPHORUS LEVEL 3.3 MG/DL (2.5-4.9); POTASSIUM SERUM 3.2 MEQ/L (3.5-5.1); SODIUM LEVEL 139 MEQ/L (136-145); TOTAL PROTEIN 7.9 GM/DL (6.4-8.2)
--- NOTE | 2019-05-29 08:01 | IPNPDOC ---
Date Seen The patient was seen on 05/29/19. Progress Note CHANGE IN CLINICAL STATUS MAX CART was called at 0655. Patient was found to be unresponsive in PEA. CPR was started. Patient had lost IV access and additional peripheral line was started. Patient received epinephrine once IV access was established. Patient remained in PEA despite continued resuscitation attempts. A femoral line was attempted to procure additional access. ACLS was continued for a total of 20min at which point the patients had requested that resuscitative measures be discontinued. Patient had received in total 6 rounds of epinephrine and an ampule of bicarb. Attending Addendum: Agree with documentation above. Briefly nursing reported the patient having been admitted for altered mental status, had hypokalemia to 3.2 on AM labs and on checking BP earlier this morning had been noted to be hypertensive. On attempt to recheck blood pressure, she became unresponsive and a max cart was called. On our arrival to the scene, CPR had begun, she was pulseless with pulseless NSR on the monitor with pads in place with adeqaute compressions with a back board in place, with ongoing bagging. The ACLS last ~20 minutes and as stated above she remained pulseless in PEA, lost her IV, had 1 PIV placed and had 6 doses of epinephrine, 2 doses of bicarb while an effort to place a femoral line was unsuccessful. The was alerted and made his way to the hospital promptly and on arrival requested the resuscitation effort to be discontinued. Staff including covering physician were present to job counselor the family. VS, I&O, 24H, Fishbone Vital Signs/I&O Vital Signs Date Time Temp Pulse Resp B/P (MAP) Pulse Ox O2 Delivery O2 Flow Rate FiO2 05/28/19 21:00 1.0 05/28/19 20:22 71 187/92 05/28/19 20:00 99.8 19 96 05/23/19 03:45 Nasal Cannula I&O- Last 24 Hours up to 6 AM 05/29/19 06:00 Intake Total 460 ml Output Total 2350 ml Balance -1890 ml Laboratory Data 24H LABS Laboratory Tests 2 05/28/19 15:31: Blood Urea Nitrogen 15, Creatinine 0.70, Sodium Level 138, Potassium Level 2.8*L , Chloride Level 89L, Carbon Dioxide Level 48H, Anion Gap 1L, Glomerular Filtration Rate > 60.0, Calcium Level 9.1, Phosphorus Level 2.6, Magnesium Level 1.8, Albumin 2.9L 05/28/19 17:20: Bedside Glucose (Misc Panel) 103 05/29/19 05:22: Blood Urea Nitrogen 14, Creatinine 0.63, Sodium Level 139, Potassium Level 3.2L, Chloride Level 91L, Carbon Dioxide Level 43H, Anion Gap 5L, Glomerular Filtration Rate > 60.0, Calcium Level 9.5, Phosphorus Level 3.3#, Magnesium Level 2.0, Albumin 3.1L, Nucleated Red Blood Cells % (auto) 0.0, Aspartate Amino Transf (AST/SGOT) 57H, Alanine Aminotransferase (ALT/SGPT) 44, Alkaline Phosphatase 144H, Total Bilirubin 1.0, Total Protein 7.9, Albumin/Globulin Ratio 0.65L 05/29/19 06:55: Bedside Glucose (Misc Panel) 137H CBC/BMP Laboratory Tests 05/28/19 15:31 Anion Gap 1 L 05/29/19 05:22 Red Blood Count 3.65 L, Mean Corpuscular Volume 103.6 H, Mean Corpuscular Hemoglobin 32.6, Mean Corpuscular Hemoglobin Concent 31.5 L, Red Cell Distribution Width 13.2, Calcium Level 9.5, Phosphorus Level 3.3 #, Aspartate Amino Transf (AST/SGOT) 57 H, Alanine Aminotransferase (ALT/SGPT) 44, Alkaline Phosphatase 144 H, Total Bilirubin 1.0, Total Protein 7.9, Albumin 3.1 L Microbiology Microbiology 05/23/19 Blood Culture - Final, Complete NO GROWTH AFTER 5 DAYS 05/23/19 Blood Culture - Final, Complete NO GROWTH AFTER 5 DAYS 05/23/19 Respiratory Virus Panel (PCR) ([facility]) - Final, Complete 05/22/19 Urine Culture - Final, Complete Citrobacter Freundii HIEN GENAO DO May 29, 2019 08:01 LAURO RAHMAN MD May 29, 2019 11:04
--- NOTE | 2019-05-29 09:55 | IPNPDOC ---
Text Note Date of Service The patient was seen on 05/29/19. NOTE I received a page at 6:56am that Ms. Reyna was coding. I responded to the f acility from home and was at the bedside in 14 minutes. ACLS was in process and multiple doses of epinepherine had been given. One physician was attempting to get a femoral line since IV access was tenuous (and apparently had to be restarted at the beginning of the code). Ms. Reyna code status was in some question as she had verbally indicated a wish to be DNR to her primary care provider, but her requested she be full code while in the hospital (and apparently she wasn't able to express her direct wishes at that time). I spoke with him about the situation and he requested we stop the resuscitative efforts. ACLS was provided for about 20 minutes with no ROSC before he requested we discontinue the efforts. We honored his (and what we believe to be her) wishes and she was pronounced . VS,Fishbone, I+O VS, Fishbone, I+O Laboratory Tests 05/28/19 15:31 Anion Gap 1 L 05/29/19 05:22 Red Blood Count 3.65 L, Mean Corpuscular Volume 103.6 H, Mean Corpuscular Hemoglobin 32.6, Mean Corpuscular Hemoglobin Concent 31.5 L, Red Cell Distribution Width 13.2, Calcium Level 9.5, Phosphorus Level 3.3 #, Aspartate Amino Transf (AST/SGOT) 57 H, Alanine Aminotransferase (ALT/SGPT) 44, Alkaline Phosphatase 144 H, Total Bilirubin 1.0, Total Protein 7.9, Albumin 3.1 L Vital Signs Date Time Temp Pulse Resp B/P (MAP) Pulse Ox O2 Delivery O2 Flow Rate FiO2 05/28/19 21:00 1.0 05/28/19 20:22 71 187/92 05/28/19 20:00 99.8 19 96 05/23/19 03:45 Nasal Cannula I&O- Last 24 Hours up to 6 AM 05/29/19 06:00 Intake Total 460 ml Output Total 2350 ml Balance -1890 ml Wilder Yancey MD May 29, 2019 09:55
--- NOTE | 2019-05-30 01:43 | DS.PDOC ---
Discharge Summary General Date of Admission May 23, 2019 at 11:43 Date of Discharge /Date of : 05/29/19 Primary Care Physician: A Discharge Summary PROCEDURES PERFORMED DURING STAY: [None]. ADMITTING DIAGNOSES: 1. . DISCHARGE DIAGNOSES: 1. . COMPLICATIONS/CHIEF COMPLAINT: Altered Mental Status. HISTORY OF PRESENT ILLNESS: . HOSPITAL COURSE: . DISCHARGE MEDICATIONS: Please see below. ALLERGIES: Please see below. PHYSICAL EXAMINATION ON DISCHARGE: VITAL SIGNS: Please see below. GENERAL: HEENT: NECK: CARDIOVASCULAR EXAMINATION: RESPIRATORY EXAMINATION: ABDOMINAL EXAMINATION: EXTREMITIES: SKIN: NEUROLOGICAL EXAMINATION: PSYCHIATRIC EXAMINATION: LABORATORY DATA: Please see below. IMAGING: PROGNOSIS: ACTIVITY: [As tolerated]. DIET: DISCHARGE PLAN: DISPOSITION: 20 . DISCHARGE INSTRUCTIONS: 1. . ITEMS TO FOLLOWUP ON ON OUTPATIENT: 1. . DISCHARGE CONDITION: [Stable]. TIME SPENT ON DISCHARGE: Greater than minutes. Vital Signs/I&Os Vital Signs Date Time Temp Pulse Resp B/P (MAP) Pulse Ox O2 Delivery O2 Flow Rate FiO2 05/28/19 21:00 1.0 05/28/19 20:22 71 187/92 05/28/19 20:00 99.8 19 96 Laboratory Data Labs 24H Laboratory Tests 2 05/29/19 05:22: Nucleated Red Blood Cells % (auto) 0.0, Anion Gap 5L, Glomerular Filtration Rate > 60.0, Blood Urea Nitrogen 14, Creatinine 0.63, Sodium Level 139, Potassium Level 3.2L, Chloride Level 91L, Carbon Dioxide Level 43H, Calcium Level 9.5, Phosphorus Level 3.3#, Aspartate Amino Transf (AST/SGOT) 57H, Alanine Aminotransferase (ALT/SGPT) 44, Alkaline Phosphatase 144H, Total Bilirubin 1.0, Total Protein 7.9, Albumin 3.1L, Magnesium Level 2.0, Albumin/Globulin Ratio 0.65L 05/29/19 06:55: Bedside Glucose (Misc Panel) 137H CBC/BMP Laboratory Tests 05/29/19 05:22 Red Blood Count 3.65 L, Mean Corpuscular Volume 103.6 H, Mean Corpuscular Hemoglobin 32.6, Mean Corpuscular Hemoglobin Concent 31.5 L, Red Cell Distribution Width 13.2, Calcium Level 9.5, Phosphorus Level 3.3 #, Aspartate Amino Transf (AST/SGOT) 57 H, Alanine Aminotransferase (ALT/SGPT) 44, Alkaline Phosphatase 144 H, Total Bilirubin 1.0, Total Protein 7.9, Albumin 3.1 L FSBS Laboratory Tests Test 05/29/19 06:55 Range/Units Bedside Glucose (Misc Panel) 137 80-115 MG/DL Microbiology Microbiology 05/23/19 Blood Culture - Final, Complete NO GROWTH AFTER 5 DAYS 05/23/19 Blood Culture - Final, Complete NO GROWTH AFTER 5 DAYS 05/23/19 Respiratory Virus Panel (PCR) ([facility]) - Final, Complete 05/22/19 Urine Culture - Final, Complete Citrobacter Freundii Discharge Medications Scheduled Acetaminophen (Tylenol Extra Strength) 500 Mg Tablet, 1,000 MG PO DAILY, (Reported) Amitriptyline HCl (Amitriptyline HCl) 75 Mg Tab, 75 MG PO QHS, (Reported) Calcium Citrate/Vitamin D3 (Calcium Cit-Vit D 250-200 Tab) 1 Each Tablet, 1 TAB PO DAILY, (Reported) NOON Carbamazepine (Carbamazepine ER) 400 Mg Tab.er.12h, 400 MG PO BID, (Reported) Cholecalciferol (Vitamin D3) (D3-2000) 2,000 Unit Capsule, 2,000 UNIT PO ASDIRECTED, (Reported) EVERY 5 DAYS AT DINNERTIME Clonazepam (Clonazepam) 0.5 Mg Tablet, 0.25 MG PO QHS, (Reported) Cyanocobalamin (Cyanocobalamin Injection) 1,000 Mcg/1 Ml Inj, 1,000 MCG IM QMONTH, (Reported) TAKES 1ST WEEK OF THE MONTH Duloxetine Hcl (Duloxetine HCl) 60 Mg Cap, 60 MG PO BID, (Reported) Ezetimibe (Zetia) 10 Mg Tab, 10 MG PO DAILY, (Reported) TAKES AT NOON Folic Acid (Folic Acid) 1 Mg Tab, 1 MG PO BID, (Reported) Gemfibrozil (Gemfibrozil) 600 Mg Tab, 600 MG PO BID, (Reported) 1/2 HOUR BEFORE BREAKFAST AND 1/2 HOUR BEFORE DINNER Hydroxychloroquine Sulfate (Hydroxychloroquine Sulfate) 200 Mg Tab, 200 MG PO B ID, (Reported) Levothyroxine Sodium (Synthroid) 150 Mcg Tab, 150 MCG PO DAILY, (Reported) BEFORE BREAKFAST Meloxicam (Meloxicam) 15 Mg Tab, 15 MG PO DAILY, (Reported) Multivitamins (Thera M Plus Tablet) 1 Each Tablet, 1 TAB PO DAILY, (Reported) TAKES AT NOON Pregabalin (Lyrica) 300 Mg Cap, 300 MG PO BID, (Reported) Propranolol HCl (Propranolol HCl ER) 120 Mg Cap.sa.24h, 120 MG PO QHS, (Reported) Sulfasalazine (Sulfasalazine) 500 Mg Tab, 1,000 MG PO BID, (Reported) Vit A/Vit C/Vit E/Zinc/Copper (Preservision Areds Tablet) 1 Each Tablet, 1 TAB PO BID, (Reported) LUNCH AND DINNER Scheduled PRN Acetaminophen (Tylenol Extra Strength) 500 Mg Tablet, 500 MG PO Q4H PRN for PAIN, (Reported) Albuterol Sulfate (Proair Hfa) 8.5 Gm Hfa.aer.ad, 2 PUFF INH Q6H PRN for SHORTNESS OF BREATH, (Reported) Ciclopirox Olamine (Ciclopirox) 15 Gm Cream..g., 1 DOSE EXT QHS PRN for RASH, (Reported) UNDER STOMACH FOLDS NEEDED Hydrocodone/Acetaminophen (Hydrocodone-Acetamin 5-325 mg) 1 Each Tablet, 1 TAB PO Q6H PRN for HEADACHE OR PAIN, (Reported) Miconazole Nitrate (Zeasorb AF) 71 Gm Powder, 1 DOSE TOP BID PRN for RASH, (Reported) UNDER STOMACH FOLD AND GROIN NEEDED Sumatriptan Succinate (Sumatriptan Succinate) 25 Mg Tablet, 25 MG PO BID PRN for MIGRAINE, (Reported) Allergies Coded Allergies: Barbiturates (Verified Adverse Reaction, Intermediate, REBOUND HEADACHE, 02/23/19) butalbital (Verified Adverse Reaction, Intermediate, REBOUND HEADACHE, 02/23/19) theophylline (Verified Adverse Reaction, Intermediate, REBOUND HEADACHE- XANTHINE, 02/23/19) meperidine (Verified Adverse Reaction, Mild, HEADACHE, 02/23/19) Wilder Yancey MD May 30, 2019 01:43
== END 2019-05-29 07:20 | disposition expired | DRG 70 ==
LOC: M ED 21:45 → M ED INP 21:46 → M MSPAV 05-23 05:19 → OBSVTOIN 05-23 11:43 → M ICU 05-25 11:29 → M MSPAV 05-27 15:30
PROVIDERS: ADMIT Internal Medicine; ATTEND Family Medicine
DX: G93.41 Metabolic encephalopathy (principal); K72.00 Acute and subacute hepatic failure without coma; J96.22 Acute and chronic respiratory failure with hypercapnia; I50.31 Acute diastolic (congestive) heart failure; N17.9 Acute kidney failure, unspecified; N39.0 Urinary tract infection, site not specified; E87.1 Hypo-osmolality and hyponatremia; R41.82 Altered mental status, unspecified; K59.00 Constipation, unspecified; I11.0 Hypertensive heart disease with heart failure; E78.5 Hyperlipidemia, unspecified; G43.909 Migraine, unspecified, not intractable, without status migrainosus; M79.7 Fibromyalgia; E55.9 Vitamin D deficiency, unspecified; M19.90 Unspecified osteoarthritis, unspecified site; E11.40 Type 2 diabetes mellitus with diabetic neuropathy, unspecified; E03.9 Hypothyroidism, unspecified; E53.8 Deficiency of other specified B group vitamins; Z79.899 Other long term (current) drug therapy; Z88.8 Allergy status to other drugs, medicaments and biological substances; G47.33 Obstructive sleep apnea (adult) (pediatric)